=== PATIENT | male | born 1945 | race Caucasian/White ===

== ENCOUNTER 2017-12-28 14:29 | Emergency (ER) | payer MEDICARE ==
[~2017-12-28] VITALS: Ht 162.6 cm; Wt 91.2 kg
[~2017-12-28 14:29] MED LIST: ACET325 PO; ALUMAG30SU PO; ASPI81EC; ATEN50 PO; BLOOD PRESSURE MED; Biaxin500 MG PO; CLAR500 PO; Cipro500 MG PO; Cyclobenzaprine5 MG PO; FAMO20 PO; FISH1000; Flagyl500 MG PO; GLIP5 PO; HYDACE5; LISI5; LOVA40; Levaquin500 MG PO; Lisinopril2.5 MG; MECL25 PO; METO50 PO; METO50ER PO; METR500 PO; Norco 5-325 Ta1 EACH PO; OMEP20ER PO; OXYACE5T PO; OXYC5; OXYC5 PO; PANT40 PO; PRAV20 PO; Percocet 5-3251 EACH PO; Pravachol40 MG PO; Prednisone20 MG PO; Roxicodone5 MG PO; TRIHYD253B; TRIHYD5075 PO; Zofran Odt4 MG SL; Zofran4 MG PO; Zofran8 MG PO
[2017-12-28 15:45] LABS: BASOPHILS ABSOLUTE AUTO 0.05 K/mm3 (0.00-0.23); BASOPHILS PERCENT AUTO 1 % (0-2); EOSINOPHILS ABSOLUTE AUTO 0.15 K/mm3 (0.00-0.68); EOSINOPHILS PERCENT AUTO 2 % (0-6); Hematocrit 46.7 % (37.0-53.0); Hemoglobin 15.9 g/dL (13.5-17.5); IMMATURE GRAN ABSOLUTE AUTO 0.04 K/mm3 (0.00-0.10); IMMATURE GRAN PERCENT AUTO 0 % (0-1); LYMPHOCYTES ABSOLUTE AUTO 1.61 K/mm3 (0.84-5.20); LYMPHOCYTES PERCENT AUTO 17 % (21-46); MONOCYTES ABSOLUTE AUTO 0.86 K/mm3 (0.16-1.47); MONOCYTES PERCENT AUTO 9 % (4-13); Mean Corpuscular HGB 30.1 pg (26.0-34.0); Mean Corpuscular Volume 88 fL (80-100); Mean Platelet Volume 9.9 fL (9.1-12.4); NEUTROPHILS ABSOLUTE AUTO 6.58 K/mm3 (1.96-9.15); NEUTROPHILS PERCENT AUTO 71 % (41-73); Platelet Count 160 K/mm3 (150-400); RDW Coefficient Variation 13.2 % (11.7-14.2); RDW Standard Deviation 42.8 fL (35.1-46.3); Red Blood Cell Count 5.28 M/mm3 (4.30-5.90); White Blood Cell Count 9.29 K/mm3 (4.00-11.30)
[2017-12-28 15:55] LABS: Albumin, Blood 3.6 g/dL (3.4-5.0); Bilirubin, Total 0.3 mg/dL (0.1-1.0); Bun/Creatinine Ratio 10.8 (12.0-20.0); Calcium, Blood 8.8 mg/dL (8.5-10.1); Creatinine, Blood 1.48 mg/dL (0.60-1.20); Globulin, Blood 3.7 g/dL (2.2-4.0); Total Protein, Blood 7.3 g/dL (6.4-8.2)
[2017-12-28 18:01] LABS: Source, Urine Clean Catch
[2017-12-28 18:13] LABS: Bilirubin, Urine Neg (Neg); Blood, Urine Neg (Neg); Glucose Qualitative, Urine Neg (Neg); Ketones, Urine Neg (Neg); Leukocyte Esterase, Urine Neg (Neg); Nitrite, Urine Neg (Neg); Protein, Urine 2+ (Neg); Specific Gravity, Urine 1.015 (1.003-1.022); Urobilinogen, Urine NORM (Normal)
[2017-12-28 18:23] LABS: Appearance, Urine Clear (Clear); Color, Urine Yellow (P-Yellow)
[2017-12-28 18:24] LABS: Bacteria Not Seen /hpf; Red Blood Cells, Urine Not Seen /hpf (0-2); Squamous Epithelial Cells Not Seen /hpf (Few); White Blood Cells, Urine 0-2 /hpf (0-5)
== END 2017-12-28 19:21 | disposition home or self-care (01) ==
LOC: ER 14:29
PROVIDERS: Emergency Medicine
DX: R42 Dizziness and giddiness (principal); R07.9 Chest pain, unspecified; R51 Headache; M25.512 Pain in left shoulder; I10 Essential (primary) hypertension; E11.9 Type 2 diabetes mellitus without complications; Z91.010 Allergy to peanuts; Z88.0 Allergy status to penicillin; Z88.8 Allergy status to other drugs, medicaments and biological substances; Z88.1 Allergy status to other antibiotic agents; Z79.82 Long term (current) use of aspirin; Z79.84 Long term (current) use of oral hypoglycemic drugs; Z79.899 Other long term (current) drug therapy
CPT/HCPCS: 70450; 71046; 73502; 80053; 81001; 84484; 85025; 93005; 93010; 96361; 96374; 99284; G0480; J2765; J7030

== ENCOUNTER 2017-12-30 07:40 | Emergency (ER) | payer MEDICARE ==
[~2017-12-30] VITALS: Ht 160 cm; Wt 90.7 kg
[2017-12-30 08:20] LABS: Source, Urine Clean Catch
[2017-12-30 08:32] LABS: BASOPHILS ABSOLUTE AUTO 0.05 K/mm3 (0.00-0.23); BASOPHILS PERCENT AUTO 1 % (0-2); EOSINOPHILS ABSOLUTE AUTO 0.16 K/mm3 (0.00-0.68); EOSINOPHILS PERCENT AUTO 3 % (0-6); Hematocrit 43.7 % (37.0-53.0); Hemoglobin 14.9 g/dL (13.5-17.5); IMMATURE GRAN ABSOLUTE AUTO 0.01 K/mm3 (0.00-0.10); IMMATURE GRAN PERCENT AUTO 0 % (0-1); LYMPHOCYTES ABSOLUTE AUTO 1.07 K/mm3 (0.84-5.20); LYMPHOCYTES PERCENT AUTO 19 % (21-46); MONOCYTES ABSOLUTE AUTO 0.55 K/mm3 (0.16-1.47); MONOCYTES PERCENT AUTO 10 % (4-13); Mean Corpuscular HGB 30.5 pg (26.0-34.0); Mean Corpuscular HGB Conc 34.1 g/dL (31.5-36.5); Mean Corpuscular Volume 89 fL (80-100); NEUTROPHILS ABSOLUTE AUTO 3.89 K/mm3 (1.96-9.15); NEUTROPHILS PERCENT AUTO 68 % (41-73); Platelet Count 147 K/mm3 (150-400); RDW Coefficient Variation 13.2 % (11.7-14.2); RDW Standard Deviation 43.1 fL (35.1-46.3); Red Blood Cell Count 4.89 M/mm3 (4.30-5.90); White Blood Cell Count 5.73 K/mm3 (4.00-11.30)
[2017-12-30 08:44] LABS: Bilirubin, Urine Neg (Neg); Blood, Urine 1+ (Neg); Glucose Qualitative, Urine Neg (Neg); Ketones, Urine Neg (Neg); Leukocyte Esterase, Urine Neg (Neg); Nitrite, Urine Neg (Neg); Protein, Urine 1+ (Neg); Urobilinogen, Urine NORM (Normal)
[2017-12-30 08:52] LABS: Albumin, Blood 3.1 g/dL (3.4-5.0); Albumin/Globulin Ratio 0.9 (0.8-1.8); Bilirubin, Total 0.4 mg/dL (0.1-1.0); Bun/Creatinine Ratio 13.3 (12.0-20.0); Calcium, Blood 8.4 mg/dL (8.5-10.1); Creatinine, Blood 1.95 mg/dL (0.60-1.20); Globulin, Blood 3.5 g/dL (2.2-4.0); Potassium, Blood 3.9 mmol/L (3.5-5.5); Total Protein, Blood 6.6 g/dL (6.4-8.2)
[2017-12-30 09:06] LABS: Appearance, Urine Clear (Clear); Color, Urine Yellow (P-Yellow)
[2017-12-30 09:11] LABS: Bacteria Rare /hpf; Red Blood Cells, Urine Rare /hpf (0-2); Squamous Epithelial Cells Not Seen /hpf (Few); White Blood Cells, Urine Not Seen /hpf (0-5)
== END 2017-12-30 11:06 | disposition home or self-care (01) ==
LOC: ER 07:40
PROVIDERS: Emergency Medicine
DX: R10.9 Unspecified abdominal pain (principal); I10 Essential (primary) hypertension; E11.9 Type 2 diabetes mellitus without complications; F17.210 Nicotine dependence, cigarettes, uncomplicated
CPT/HCPCS: 36415; 74176; 76770; 80053; 81001; 83690; 85025; 99284

== ENCOUNTER 2018-09-04 04:51 | Emergency (ER) | payer MEDICARE ==
[~2018-09-04] VITALS: Ht 160 cm; Wt 94.3 kg
[2018-09-04] MEDS ORDERED: ZALE10 PO (05:50)
== END 2018-09-04 06:00 | disposition home or self-care (01) ==
LOC: ER 04:51
DX: G47.00 Insomnia, unspecified (principal); Z88.8 Allergy status to other drugs, medicaments and biological substances; Z91.010 Allergy to peanuts; Z88.0 Allergy status to penicillin; Z88.1 Allergy status to other antibiotic agents; I10 Essential (primary) hypertension; E11.9 Type 2 diabetes mellitus without complications; F17.210 Nicotine dependence, cigarettes, uncomplicated
CPT/HCPCS: 99283

== ENCOUNTER 2019-04-04 15:34 | Emergency (ER) | payer MEDICARE ==
[~2019-04-04] VITALS: Ht 157.5 cm; Wt 84.8 kg
[~2019-04-04 15:34] MED LIST changes: +ZALE10 PO
[2019-04-04] MEDS ORDERED: CEPH500 PO (18:31)
[2019-04-04] MEDS ORDERED: Bactrim Ds Tab1 EACH PO (18:31)
== END 2019-04-04 18:48 | disposition home or self-care (01) ==
LOC: ER 15:34
DX: L03.113 Cellulitis of right upper limb (principal); I10 Essential (primary) hypertension; E11.9 Type 2 diabetes mellitus without complications; F17.210 Nicotine dependence, cigarettes, uncomplicated; M79.601 Pain in right arm; Z88.1 Allergy status to other antibiotic agents; Z88.0 Allergy status to penicillin; Z91.010 Allergy to peanuts; Z88.8 Allergy status to other drugs, medicaments and biological substances; Z79.899 Other long term (current) drug therapy
CPT/HCPCS: 73080; 93971; 99284-25

== ENCOUNTER 2019-04-09 10:29 | Emergency (ER) | payer MEDICARE ==
[~2019-04-09] VITALS: Ht 160 cm; Wt 94.3 kg
[~2019-04-09 10:29] MED LIST changes: +Bactrim Ds Tab1 EACH PO; +CEPH500 PO
[2019-04-09] MEDS ORDERED: DOXE25 PO (11:37)
[2019-04-09] MEDS ORDERED: METPRE4DP PO (11:37)
[2019-04-09] MEDS ORDERED: Triamcinolone A15 G3 TOP (11:37)
== END 2019-04-09 11:52 | disposition home or self-care (01) ==
LOC: ER 10:29
DX: L25.9 Unspecified contact dermatitis, unspecified cause (principal); I10 Essential (primary) hypertension; E11.9 Type 2 diabetes mellitus without complications; F17.210 Nicotine dependence, cigarettes, uncomplicated; Z88.0 Allergy status to penicillin; Z88.1 Allergy status to other antibiotic agents; Z91.018 Allergy to other foods; Z79.899 Other long term (current) drug therapy
CPT/HCPCS: 99282

== ENCOUNTER 2019-04-22 20:20 | Emergency (ER) | payer MEDICARE ==
[~2019-04-22] VITALS: Ht 160 cm; Wt 94.3 kg
[~2019-04-22 20:20] MED LIST changes: +DOXE25 PO; +METPRE4DP PO; +Triamcinolone A15 G3 TOP
[2019-04-22] MEDS ORDERED: HYDHCL25 PO (21:57)
[2019-04-22] MEDS ORDERED: CEPH500 PO (21:57)
[2019-04-22] MEDS ORDERED: Prednisone20 MG PO (21:57)
== END 2019-04-22 22:05 | disposition home or self-care (01) ==
LOC: ER 20:20
DX: L03.113 Cellulitis of right upper limb (principal); Z88.8 Allergy status to other drugs, medicaments and biological substances; Z91.010 Allergy to peanuts; Z88.0 Allergy status to penicillin; Z88.1 Allergy status to other antibiotic agents; Z79.899 Other long term (current) drug therapy; I10 Essential (primary) hypertension; E11.9 Type 2 diabetes mellitus without complications; F17.210 Nicotine dependence, cigarettes, uncomplicated
CPT/HCPCS: 99283; J7512

== ENCOUNTER 2019-05-07 17:55 | Emergency (ER) | payer MEDICARE ==
[~2019-05-07] VITALS: Ht 160 cm; Wt 92.1 kg
[~2019-05-07 17:55] MED LIST changes: +HYDHCL25 PO
[2019-05-07] MEDS ORDERED: PRED20 PO (19:02)
[2019-05-07] MEDS ORDERED: MOME.1TO TOP (19:04)
== END 2019-05-07 19:21 | disposition home or self-care (01) ==
LOC: ER 17:55
DX: R21 Rash and other nonspecific skin eruption (principal); Z88.8 Allergy status to other drugs, medicaments and biological substances; Z91.010 Allergy to peanuts; Z88.0 Allergy status to penicillin; Z88.1 Allergy status to other antibiotic agents; Z79.52 Long term (current) use of systemic steroids; I10 Essential (primary) hypertension; E11.9 Type 2 diabetes mellitus without complications; F17.210 Nicotine dependence, cigarettes, uncomplicated
CPT/HCPCS: 99283; J7512

== ENCOUNTER 2019-05-09 03:58 | Emergency (ER) | payer MEDICARE ==
[~2019-05-09] VITALS: Ht 160 cm; Wt 92.1 kg
[~2019-05-09 03:58] MED LIST changes: +MOME.1TO TOP; +PRED20 PO
== END 2019-05-09 04:48 | disposition home or self-care (01) ==
LOC: ER 03:58
DX: L50.0 Allergic urticaria (principal); E11.9 Type 2 diabetes mellitus without complications; I10 Essential (primary) hypertension; F17.210 Nicotine dependence, cigarettes, uncomplicated; Z88.1 Allergy status to other antibiotic agents; Z91.018 Allergy to other foods; Z88.0 Allergy status to penicillin; Z88.8 Allergy status to other drugs, medicaments and biological substances; Z79.899 Other long term (current) drug therapy; Z79.52 Long term (current) use of systemic steroids
CPT/HCPCS: 96372; 99283-25; J3301

== ENCOUNTER 2019-05-13 15:48 | Emergency (ER) | payer MEDICARE ==
[~2019-05-13] VITALS: Ht 160 cm; Wt 92.1 kg
== END 2019-05-13 17:45 | disposition home or self-care (01) ==
LOC: ER 15:48
DX: L50.9 Urticaria, unspecified (principal); L30.9 Dermatitis, unspecified; R06.2 Wheezing; I10 Essential (primary) hypertension; E11.9 Type 2 diabetes mellitus without complications; F17.210 Nicotine dependence, cigarettes, uncomplicated; Z88.0 Allergy status to penicillin; Z88.8 Allergy status to other drugs, medicaments and biological substances; Z91.010 Allergy to peanuts; Z88.1 Allergy status to other antibiotic agents; Z79.899 Other long term (current) drug therapy; Z79.52 Long term (current) use of systemic steroids
CPT/HCPCS: 99282

== ENCOUNTER 2019-07-17 18:25 | Emergency (ER) | payer MEDICARE ==
[~2019-07-17] VITALS: Ht 160 cm; Wt 94.8 kg
[~2019-07-17 18:25] MED LIST changes: +ASPI81CH PO; +GLIP10ER PO; +Prinivil10 MG PO; +Zocor20 MG PO
[2019-07-17 18:55] LABS: BASOPHILS ABSOLUTE AUTO 0.04 K/mm3 (0.00-0.23); BASOPHILS PERCENT AUTO 1 % (0-2); EOSINOPHILS ABSOLUTE AUTO 0.03 K/mm3 (0.00-0.68); EOSINOPHILS PERCENT AUTO 0 % (0-6); Hematocrit 50.2 % (37.0-53.0); Hemoglobin 16.9 g/dL (13.5-17.5); IMMATURE GRAN ABSOLUTE AUTO 0.02 K/mm3 (0.00-0.10); IMMATURE GRAN PERCENT AUTO 0 % (0-1); LYMPHOCYTES ABSOLUTE AUTO 1.44 K/mm3 (0.84-5.20); LYMPHOCYTES PERCENT AUTO 19 % (21-46); MONOCYTES ABSOLUTE AUTO 0.74 K/mm3 (0.16-1.47); MONOCYTES PERCENT AUTO 10 % (4-13); Mean Corpuscular HGB 29.5 pg (26.0-34.0); Mean Corpuscular HGB Conc 33.7 g/dL (31.5-36.5); Mean Corpuscular Volume 88 fL (80-100); Mean Platelet Volume 9.5 fL (9.1-12.4); NEUTROPHILS ABSOLUTE AUTO 5.48 K/mm3 (1.96-9.15); NEUTROPHILS PERCENT AUTO 71 % (41-73); Platelet Count 196 K/mm3 (150-400); RDW Coefficient Variation 13.1 % (11.7-14.2); RDW Standard Deviation 41.9 fL (35.1-46.3); Red Blood Cell Count 5.73 M/mm3 (4.30-5.90); White Blood Cell Count 7.75 K/mm3 (4.00-11.30)
[2019-07-17 19:10] LABS: International Normalized Ratio 1.03; Prothrombin Time Results 10.9 Sec (9.7-11.5)
[2019-07-17] MEDS ORDERED: METOPROLOL SUCC25 MG PO (19:20)
[2019-07-17] MEDS ORDERED: ZESTORETIC 20-121 EA PO (19:20)
[2019-07-17 19:25] LABS: Albumin, Blood 3.3 g/dL (3.4-5.0); Albumin/Globulin Ratio 0.9 (0.8-1.8); Bilirubin, Total 0.5 mg/dL (0.1-1.0); Bun/Creatinine Ratio 15.2 (12.0-20.0); Calcium, Blood 8.9 mg/dL (8.5-10.1); Creatinine, Blood 1.78 mg/dL (0.60-1.20); Globulin, Blood 3.8 g/dL (2.2-4.0); Potassium, Blood 3.4 mmol/L (3.5-5.5); Total Protein, Blood 7.1 g/dL (6.4-8.2)
[2019-07-18] MEDS ORDERED: Polytrim Eye Dr10 ML LEFTEYE (16:05)
== END 2019-07-17 22:31 | disposition home or self-care (01) ==
LOC: ER 18:25
PROVIDERS: Physician Assistant
DX: G45.9 Transient cerebral ischemic attack, unspecified (principal); I10 Essential (primary) hypertension; E11.9 Type 2 diabetes mellitus without complications; Z88.0 Allergy status to penicillin; Z88.1 Allergy status to other antibiotic agents; Z88.8 Allergy status to other drugs, medicaments and biological substances; Z91.010 Allergy to peanuts; Z79.82 Long term (current) use of aspirin; Z79.899 Other long term (current) drug therapy; F17.210 Nicotine dependence, cigarettes, uncomplicated
CPT/HCPCS: 36415; 70450; 80053; 85025; 85610; 93005; 93010; 96374; 99284-25; J3010

== ENCOUNTER 2019-07-18 11:08 | Emergency (ER) | payer MEDICARE ==
[~2019-07-18] VITALS: Ht 160 cm; Wt 94.8 kg
[~2019-07-18 11:08] MED LIST changes: +METOPROLOL SUCC25 MG PO; +ZESTORETIC 20-121 EA PO
[2019-07-18 13:25] LABS: BASOPHILS ABSOLUTE AUTO 0.02 K/mm3 (0.00-0.23); BASOPHILS PERCENT AUTO 0 % (0-2); EOSINOPHILS ABSOLUTE AUTO 0.05 K/mm3 (0.00-0.68); EOSINOPHILS PERCENT AUTO 1 % (0-6); Hematocrit 47.9 % (37.0-53.0); Hemoglobin 16.3 g/dL (13.5-17.5); IMMATURE GRAN ABSOLUTE AUTO 0.02 K/mm3 (0.00-0.10); IMMATURE GRAN PERCENT AUTO 0 % (0-1); LYMPHOCYTES ABSOLUTE AUTO 1.37 K/mm3 (0.84-5.20); LYMPHOCYTES PERCENT AUTO 19 % (21-46); MONOCYTES PERCENT AUTO 11 % (4-13); Mean Corpuscular HGB 30.1 pg (26.0-34.0); Mean Corpuscular Volume 88 fL (80-100); Mean Platelet Volume 9.2 fL (9.1-12.4); NEUTROPHILS ABSOLUTE AUTO 5.05 K/mm3 (1.96-9.15); NEUTROPHILS PERCENT AUTO 69 % (41-73); Platelet Count 194 K/mm3 (150-400); RDW Coefficient Variation 13.2 % (11.7-14.2); RDW Standard Deviation 43.3 fL (35.1-46.3); Red Blood Cell Count 5.42 M/mm3 (4.30-5.90); White Blood Cell Count 7.31 K/mm3 (4.00-11.30)
[2019-07-18 13:42] LABS: Anion Gap 7 mmol/L (6-16); Blood Urea Nitrogen 34 mg/dL (8-24); Bun/Creatinine Ratio 18.5 (12.0-20.0); C-REACTIVE PROTEIN, EXT RANGE <0.290 mg/dL (0.000-0.300); CO2, Blood 27 mmol/L (21-32); Calcium, Blood 8.9 mg/dL (8.5-10.1); Chloride, Blood 108 mmol/L (98-108); Creatinine, Blood 1.84 mg/dL (0.60-1.20); Glomerular Filtration Rate 39 (60-); Glucose, Blood 91 mg/dL (70-99); Potassium, Blood 3.6 mmol/L (3.5-5.5); Sodium, Blood 142 mmol/L (136-145)
[2019-07-18] MEDS ORDERED: Polytrim Eye Dr10 ML LEFTEYE (16:05)
== END 2019-07-18 16:19 | disposition home or self-care (01) ==
LOC: ER 11:08
PROVIDERS: Emergency Medicine
DX: H16.002 Unspecified corneal ulcer, left eye (principal); H53.132 Sudden visual loss, left eye; R51 Headache; I10 Essential (primary) hypertension; E11.9 Type 2 diabetes mellitus without complications; Z88.0 Allergy status to penicillin; Z88.1 Allergy status to other antibiotic agents; Z88.8 Allergy status to other drugs, medicaments and biological substances; Z79.899 Other long term (current) drug therapy; Z79.82 Long term (current) use of aspirin; F17.200 Nicotine dependence, unspecified, uncomplicated
CPT/HCPCS: 36415; 80048; 85025; 85651; 86140; 93880; 99284-25

== ENCOUNTER → 2020-07-10 | Outpatient (CLI) | payer OTHER ==
[~2020-07-10] MED LIST changes: +Polytrim Eye Dr10 ML LEFTEYE; +SULTRIDS PO
[2020-07-10 16:59] LABS: Alanine Aminotransfer (ALT/SGP 23 U/L (12-78); Albumin, Blood 3.4 g/dL (3.4-5.0); Albumin/Globulin Ratio 0.9 (0.8-1.8); Alk Phos 90 U/L (50-136); Anion Gap 6 mmol/L (6-16); Aspartate Aminotrans (AST/SGOT 15 U/L (12-37); Bilirubin, Total 0.3 mg/dL (0.1-1.0); Blood Urea Nitrogen 19 mg/dL (8-24); Bun/Creatinine Ratio 13.1 (12.0-20.0); CHOL/HDL RATIO 5.6; CO2, Blood 24 mmol/L (21-32); Calcium, Blood 8.8 mg/dL (8.5-10.1); Chloride, Blood 109 mmol/L (98-108); Cholesterol 201 mg/dL (50-200); Creatinine, Blood 1.45 mg/dL (0.60-1.20); Globulin, Blood 3.8 g/dL (2.2-4.0); Glomerular Filtration Rate 51 (60-); Glucose, Blood 103 mg/dL (70-99); HDL Cholesterol 36 mg/dL (>39); LDL/HDL RATIO 2.8; Low Density Lipoprotein Chol 102 mg/dL (0-110); PSA, %Free 26.5 %; PSA, Free 0.403 ng/mL; Potassium, Blood 3.4 mmol/L (3.5-5.5); Sodium, Blood 139 mmol/L (136-145); Total Protein, Blood 7.2 g/dL (6.4-8.2); Triglycerides 317 mg/dL (30-160); Very Low Density Lipoprot Chol 63 mg/dL (6-32)
[2020-07-10 20:57] LABS: Microalb/Creat Ratio UR, Rand 1857.14 mg/g (0.000-30.000)
== END | disposition home or self-care (01) ==
LOC: LAB SHORT 15:29 → LAB 15:29
PROVIDERS: Family Medicine
DX: E11.9 Type 2 diabetes mellitus without complications (principal); I10 Essential (primary) hypertension; R33.9 Retention of urine, unspecified
CPT/HCPCS: 80053; 80061; 82043; 82570; 83036; 84153; 84154

== ENCOUNTER 2020-10-08 02:14 | Emergency (ER) | payer OTHER ==
[~2020-10-08] VITALS: Ht 160 cm; Wt 94.3 kg
[~2020-10-08 02:14] MED LIST changes: -SULTRIDS PO
[2020-10-08] MEDS ORDERED: SULTRIDS PO (03:04)
== END 2020-10-08 05:05 | disposition home or self-care (01) ==
LOC: ER 02:14
DX: L02.11 Cutaneous abscess of neck (principal); I10 Essential (primary) hypertension; E11.9 Type 2 diabetes mellitus without complications; Z79.84 Long term (current) use of oral hypoglycemic drugs; Z79.899 Other long term (current) drug therapy; Z79.82 Long term (current) use of aspirin; Z88.0 Allergy status to penicillin; Z88.1 Allergy status to other antibiotic agents; Z91.010 Allergy to peanuts; Z87.891 Personal history of nicotine dependence
CPT/HCPCS: 96372; 99283-25; A9270; J1885

== ENCOUNTER 2020-10-09 04:26 | Emergency (ER) | payer OTHER ==
[~2020-10-09 04:26] MED LIST changes: +SULTRIDS PO
== END 2020-10-09 05:35 | disposition home or self-care (01) ==
LOC: ER 04:26
DX: L03.221 Cellulitis of neck (principal); E11.9 Type 2 diabetes mellitus without complications; F17.210 Nicotine dependence, cigarettes, uncomplicated; Z79.899 Other long term (current) drug therapy; Z79.84 Long term (current) use of oral hypoglycemic drugs; Z79.82 Long term (current) use of aspirin
CPT/HCPCS: 99282; A9270

== ENCOUNTER 2021-04-30 12:40 | Inpatient (IN) | payer OTHER ==
[~2021-04-30] VITALS: Ht 160 cm; Wt 98.0 kg
[~2021-04-30 12:40] MED LIST changes: -ASPI81CH PO; +Aspir 8181 MG PO
[2021-04-30 13:23] LABS: BASOPHILS ABSOLUTE AUTO 0.03 K/mm3 (0.00-0.23); BASOPHILS PERCENT AUTO 0 % (0-2); EOSINOPHILS ABSOLUTE AUTO 0.03 K/mm3 (0.00-0.68); EOSINOPHILS PERCENT AUTO 0 % (0-6); Hematocrit 42.4 % (37.0-53.0); Hemoglobin 14.4 g/dL (13.5-17.5); IMMATURE GRAN ABSOLUTE AUTO 0.15 K/mm3 (0.00-0.10); IMMATURE GRAN PERCENT AUTO 1 % (0-1); LYMPHOCYTES ABSOLUTE AUTO 2.83 K/mm3 (0.84-5.20); LYMPHOCYTES PERCENT AUTO 27 % (21-46); MONOCYTES ABSOLUTE AUTO 0.66 K/mm3 (0.16-1.47); MONOCYTES PERCENT AUTO 6 % (4-13); Mean Corpuscular HGB 30.3 pg (26.0-34.0); Mean Corpuscular Volume 89 fL (80-100); Mean Platelet Volume 9.6 fL (9.1-12.4); NEUTROPHILS ABSOLUTE AUTO 6.96 K/mm3 (1.96-9.15); NEUTROPHILS PERCENT AUTO 65 % (41-73); Platelet Count 226 K/mm3 (150-400); RDW Coefficient Variation 13.6 % (11.7-14.2); RDW Standard Deviation 44.1 fL (35.1-46.3); Red Blood Cell Count 4.76 M/mm3 (4.30-5.90); White Blood Cell Count 10.66 K/mm3 (4.00-11.30)
[2021-04-30 13:41] LABS: Alanine Aminotransfer (ALT/SGP 58 U/L (12-78); Albumin, Blood 2.7 g/dL (3.4-5.0); Albumin/Globulin Ratio 0.7 (0.8-1.8); Alk Phos 88 U/L (50-136); Anion Gap 7 mmol/L (6-16); Aspartate Aminotrans (AST/SGOT 66 U/L (12-37); Bilirubin, Total 0.3 mg/dL (0.1-1.0); Blood Urea Nitrogen 22 mg/dL (8-24); Bun/Creatinine Ratio 12.2 (12.0-20.0); CO2, Blood 28 mmol/L (21-32); Calcium, Blood 8.6 mg/dL (8.5-10.1); Chloride, Blood 109 mmol/L (98-108); Creatinine, Blood 1.81 mg/dL (0.60-1.20); Ethanol (Alcohol), Blood, Med <3 mg/dL; Globulin, Blood 3.9 g/dL (2.2-4.0); Glomerular Filtration Rate 37 (60-); Glucose, Blood 170 mg/dL (70-99); Potassium, Blood 3.9 mmol/L (3.5-5.5); Sodium, Blood 144 mmol/L (136-145); Total Protein, Blood 6.6 g/dL (6.4-8.2)
[2021-04-30 13:43] LABS: International Normalized Ratio 1.02; Prothrombin Time Results 10.7 Sec (9.7-11.5)
[2021-04-30] MEDS ORDERED: GLIP10 PO (16:33)
[2021-04-30] MEDS ORDERED: Simvastatin40 MG PO (16:33)
[2021-04-30] MEDS ORDERED: LISINOPRIL-HCT1 EACH PO (16:34)
[2021-04-30 17:47] LABS: Hematocrit 39.3 % (37.0-53.0); Hemoglobin 13.1 g/dL (13.5-17.5)
[2021-04-30 18:14] LABS: SARS-Cov-2 (COVID-19) PCR, MMC NEGATIVE (NEGATIVE)
[2021-05-01 04:15] LABS: BASOPHILS ABSOLUTE AUTO 0.03 K/mm3 (0.00-0.23); BASOPHILS PERCENT AUTO 0 % (0-2); EOSINOPHILS ABSOLUTE AUTO 0.01 K/mm3 (0.00-0.68); EOSINOPHILS PERCENT AUTO 0 % (0-6); Hematocrit 35.3 % (37.0-53.0); Hemoglobin 11.4 g/dL (13.5-17.5); IMMATURE GRAN ABSOLUTE AUTO 0.05 K/mm3 (0.00-0.10); IMMATURE GRAN PERCENT AUTO 1 % (0-1); LYMPHOCYTES ABSOLUTE AUTO 0.93 K/mm3 (0.84-5.20); LYMPHOCYTES PERCENT AUTO 11 % (21-46); MONOCYTES ABSOLUTE AUTO 0.77 K/mm3 (0.16-1.47); MONOCYTES PERCENT AUTO 9 % (4-13); Mean Corpuscular HGB 30.1 pg (26.0-34.0); Mean Corpuscular HGB Conc 32.3 g/dL (31.5-36.5); Mean Corpuscular Volume 93 fL (80-100); Mean Platelet Volume 9.8 fL (9.1-12.4); NEUTROPHILS ABSOLUTE AUTO 6.41 K/mm3 (1.96-9.15); NEUTROPHILS PERCENT AUTO 78 % (41-73); Platelet Count 158 K/mm3 (150-400); RDW Coefficient Variation 14.2 % (11.7-14.2); RDW Standard Deviation 47.6 fL (35.1-46.3); Red Blood Cell Count 3.79 M/mm3 (4.30-5.90)
--- NOTE | 2021-05-01 04:37 | NUR ---
PATIENT C/O OF PAIN OF THE CHEST AND RIGHT SHOULDER PAIN. PATIENT IS ON A FENTANYL CAR MANAGER PUMP AND IS STATING THAT IT IS NOT EFFECTIVE. THE NURSE EDUCATED THE PATIENT ABOUT THE PUMP PUSHING THE BUTTON. VITALS ARE STABLE. WILL CONTINUE TO MONITOR PATIENT'S PAIN.
[2021-05-01 04:45] LABS: Bun/Creatinine Ratio 10.2 (12.0-20.0); Calcium, Blood 7.6 mg/dL (8.5-10.1); Creatinine, Blood 3.03 mg/dL (0.60-1.20); Potassium, Blood 4.7 mmol/L (3.5-5.5)
[2021-05-01 11:01] LABS: Source, Urine Catheter
[2021-05-01 11:10] LABS: Appearance, Urine Hazy (Clear); Bilirubin, Urine Neg (Neg); Blood, Urine 5+ (Neg); Color, Urine Brown (P-Yellow); Glucose Qualitative, Urine Neg (Neg); Ketones, Urine Neg (Neg); Leukocyte Esterase, Urine 2+ (Neg); Nitrite, Urine Neg (Neg); Protein, Urine 3+ (Neg); Urobilinogen, Urine 1+ (Normal)
[2021-05-01 11:22] LABS: U Amphetamine Screen Not Detected; U Barbituate Screen Not Detected; U Benzodiazapine Screen Not Detected; U Buprenorphine Screen Not Detected; U Cannabinoids Screen Not Detected; U Cocaine Screen Not Detected; U Methadone Screen Not Detected; U Methamphetamine Screen Not Detected; U Opiates Screen DETECTED; U Oxycodone Screen Not Detected; U Phencyclidine Screen Not Detected; U Propoxyphene Screen Not Detected
[2021-05-01 11:47] LABS: Bacteria Rare /hpf; Red Blood Cells, Urine TNTC /hpf (0-2); Squamous Epithelial Cells Few /hpf (Few)
[2021-05-01 11:48] LABS: Amorphous Mod (0-Heavy)
[2021-05-01 11:49] LABS: Phosphorus, Blood 5.5 mg/dL (2.5-4.9)
--- NOTE | 2021-05-01 15:11 | NUR ---
ASSUMED CARE OF PT AT APROX 1511. PT APPEARS TO BE RESTING COMFORTABLY AT THIS TIME. CHEST TUBE TO WATER SEAL AND SX. PUBLIC HEALTH ANALYST INFUSING TO R HAND, PT DENIES PAIN AT THIS TIME.
[2021-05-01 21:45] LABS: Albumin, Blood 2.2 g/dL (3.4-5.0); Anion Gap 9 mmol/L (6-16); Blood Urea Nitrogen 37 mg/dL (8-24); Bun/Creatinine Ratio 12.9 (12.0-20.0); CO2, Blood 25 mmol/L (21-32); CPK Creatine Kinase 1557 U/L (39-308); Calcium, Blood 7.8 mg/dL (8.5-10.1); Chloride, Blood 107 mmol/L (98-108); Creatinine, Blood 2.87 mg/dL (0.60-1.20); Glomerular Filtration Rate 22 (60-); Glucose, Blood 134 mg/dL (70-99); Phosphorus, Blood 4.4 mg/dL (2.5-4.9); Potassium, Blood 4.3 mmol/L (3.5-5.5); Sodium, Blood 141 mmol/L (136-145)
[2021-05-02 04:24] LABS: BASOPHILS ABSOLUTE AUTO 0.02 K/mm3 (0.00-0.23); BASOPHILS PERCENT AUTO 0 % (0-2); EOSINOPHILS ABSOLUTE AUTO 0.01 K/mm3 (0.00-0.68); EOSINOPHILS PERCENT AUTO 0 % (0-6); Hematocrit 30.5 % (37.0-53.0); Hemoglobin 10.1 g/dL (13.5-17.5); IMMATURE GRAN ABSOLUTE AUTO 0.05 K/mm3 (0.00-0.10); IMMATURE GRAN PERCENT AUTO 1 % (0-1); LYMPHOCYTES ABSOLUTE AUTO 0.67 K/mm3 (0.84-5.20); LYMPHOCYTES PERCENT AUTO 10 % (21-46); MONOCYTES ABSOLUTE AUTO 0.72 K/mm3 (0.16-1.47); MONOCYTES PERCENT AUTO 10 % (4-13); Mean Corpuscular HGB 30.4 pg (26.0-34.0); Mean Corpuscular HGB Conc 33.1 g/dL (31.5-36.5); Mean Corpuscular Volume 92 fL (80-100); Mean Platelet Volume 9.7 fL (9.1-12.4); NEUTROPHILS ABSOLUTE AUTO 5.44 K/mm3 (1.96-9.15); NEUTROPHILS PERCENT AUTO 79 % (41-73); Platelet Count 124 K/mm3 (150-400); RDW Standard Deviation 46.9 fL (35.1-46.3); Red Blood Cell Count 3.32 M/mm3 (4.30-5.90); White Blood Cell Count 6.91 K/mm3 (4.00-11.30)
--- NOTE | 2021-05-02 05:10 | NUR ---
SHIFT SUMMARY PT HAS BEEN A&O X4 AND IN PLEASENT MOOD T/O SHIFT, THOUGH PT HAS BEEN COMPLAINING OF BEING IN PAIN T/O SHIFT. CREPE BOX TENDER MEDICATED, PT REPOSITIONED, PROVIDED W/ PILLOW FOR SPLINTING COUGHS AND PROVIDED W/ WARM BLANKET FOR COMFORT. PT TOLERATING CLEAR LIQUIDS WELL. MINIMUM DARK BUBBA COLORED URINE OUTPUT VIA URINAL. CALL LIGHT W/IN REACH AND UTILIZING APPROPRIATLY. CHEST TUBE IS WATER SEALED AND DRESSING IS C/D/I.
[2021-05-02 05:17] LABS: Albumin/Globulin Ratio 0.6 (0.8-1.8); Bilirubin, Total 0.7 mg/dL (0.1-1.0); Bun/Creatinine Ratio 14.2 (12.0-20.0); Calcium, Blood 7.9 mg/dL (8.5-10.1); Creatinine, Blood 2.67 mg/dL (0.60-1.20); Globulin, Blood 3.5 g/dL (2.2-4.0); Phosphorus, Blood 4.1 mg/dL (2.5-4.9); Potassium, Blood 4.3 mmol/L (3.5-5.5); Total Protein, Blood 5.5 g/dL (6.4-8.2)
--- NOTE | 2021-05-02 09:44 | NUR ---
INITIATED DILAUDID HUMAN RESOURCE ASSISTANT. PT'S PAIN 9/10 WITH RR AT 24.
--- NOTE | 2021-05-02 09:49 | NUR ---
helping pt off bed sellers with plant attendant or assistant operator. pt desatted to 70's while repositioning. dr. temple in room at this time. placed pt on 9L via non rebreather. sats recovered to >92% after approx 2 minutes. pt desats quickly to 70's while removing NRB while blowing nose.
--- NOTE | 2021-05-02 10:32 | NUR ---
PT TRANSFERRED TO ICU 8 WHERE HE IS TO RECEIVE AN EPIDURAL AT BEDSIDE. REPORT CALLED TO ONCOLOGY CONSULTANT. PT AND BELONGINGS TRANSFERRED TO ICU AT THIS TIME.
--- NOTE | 2021-05-02 10:58 | NUR ---
1030 TRANSFER FROM [facility] VIA BED. PATIENT AWAKE, A&O X4. MONITOR PLACED. SINUS TACH NOTED 100'S, BP STABLE, NRB MASK 13L WITH SATS 98% WITH LABOR BREATHING DUE TO RIB FX'S. RIGHT SIDE LUNG WITH CHEST TUBE TO SUCTION/PATENT WITH NO LEAK NOTED. LUNGS COURSE WITH DECREASE BASES. ABD ROUND WITH HYPO BT'S. RIGHT ARM IN SLING DUE TO S/P SHOULDER DISLOCATION. IV SITE R HAND WITH LR AT 50ML/HR AND DILAUDID OPERATOR MAINTAINER AT 0.3MG/HR FOR PAIN CONTROL. DR SRINIVASAN AND DR SMITH, ANESTHESIOLOGIST HERE AT BEDSIDE. DR SMITH HERE TO PLACE THORACIC EPIDUAL FOR PAIN CONTROL; STARTED PROCEDURE AT 1050. CONTINUE TO MONITOR AND TX PRN.
--- NOTE | 2021-05-02 11:59 | NUR ---
DR SMITH UNSUCCESSFUL OF GETTING THORACIC EPIDURAL. WILL GIVEN PATIENT A REST AND CONTINUE WITH DILAUDID POULTRY EVISCERATOR. WILL ATTEMPT AT A LATER TIME. DR WRIGHT HERE AT BEDSIDE TO SEE PATIENT.
--- NOTE | 2021-05-02 13:50 | NUR ---
DR CUNHA, ANESTHESIOLOGIST HERE TO PLACE THORACIC EPIDURAL. 14FR COUDE DAVALOS PLACED TO MONITOR ACCURATE I&O'S. ATTEMPTED ADDITIONAL PERIPHERAL IV PLACEMENT, UNSUCESSFUL X2.
[2021-05-02 16:18] LABS: Source, Urine Catheter
[2021-05-02 16:33] LABS: Appearance, Urine Clear (Clear); Bilirubin, Urine Neg (Neg); Blood, Urine 5+ (Neg); Color, Urine Yellow (P-Yellow); Glucose Qualitative, Urine Neg (Neg); Ketones, Urine Neg (Neg); Leukocyte Esterase, Urine 1+ (Neg); Nitrite, Urine Neg (Neg); Protein, Urine 3+ (Neg); Urobilinogen, Urine NORM (Normal)
[2021-05-02 17:13] LABS: Bacteria Few /hpf; Red Blood Cells, Urine 50-100 /hpf (0-2); Squamous Epithelial Cells Few /hpf (Few)
[2021-05-02 17:14] LABS: Mucus Light (0-Heavy)
--- NOTE | 2021-05-02 18:10 | NUR ---
1404 DR. CUNHA STARTED PROCEDURE. SEE ANESTHESIOLOGIST RECORD. DILAUDID CANDY ROLLING MACHINE OPERATOR STOPPED AND LR INFUSING. 1425 EPIDURAL PLACED, BOLUS DOSE GIVEN BY DR, AND BLOOD PRESSURE DROPPED. STOPPED EPIDURAL INFUSION AND DR TX'D BP. 1506 DR CUNHA STABILIZED BP, ASSUMED CARE. PT RESTING/SLEEPING COMFORTABLE. RESTARTED EPIDURAL AT 5ML/HR. CONTINUE TO MONITOR AND TX PRN.
--- NOTE | 2021-05-02 18:17 | NUR ---
SHIFT SUMMARY PATIENT RESTING COMFORTABLE, DENIES PAIN. FENTANYL/BUPIVACAINE EPIDURAL INFUSING AT 5ML/HR TOLERATING WELL. VSS. LUNGS REAMINS COARSE WITH 10L OXYMIZER IN PLACE WITH SATS >90%. ABLE TO COUGH AND DEEP BREATH. ATTEMPTED TO EAT DINNER; APPLESAUCE AND DRINK SIPS OF WATER. INCREASE RESP. RATE 40-50'S AND DECREASE SATS 88%. EDUCATED PATIENT TO HOLD ADDITIONAL FOOD FOR NOW DUE TO RESPIRATORY STATUS, AGREED. DAVALOS PATENT. NEW IV ACCESS POWER GLIDE DAVON WITH NS AT 100ML/HR. BLOOD SUGAR STABLE. WILL START DUCOLAX SUPP. PER ORDERS. CONTINUE TO MONITOR AND TX PRN. SPOKE WITH FAMILY AND UPDATED ON STATUS. WILL REPORT OFF TO NOC SHIFT.
--- NOTE | 2021-05-02 19:58 | NUR ---
ASSUMED CARE OF PT AT 1915. REPORT RECEIVED. PT PRESENTS IN BED. PRESENTLY HAS JUST COMPLETED USING BEDPAN. HAS SMALL BM. PT USES EPIDURAL FOR PAIN CONTROL. WITH TURN, PT STATES HIS PAIN IS 5/10. WILL CONTINUE TO MONITOR, AND ADJUST PAIN MANAGEMENT NEEDED. PT ALERT AND ORIENTED. PLEASANT AND COOPERATIVE WITH CARE AND ASSESSMENT. ENCOURAGED COUGH AND DEEP BREATHING. TEACHING OF BREATHING TECHNIQUES. PT REDEMONSTRATES BACK APPROPRIATELY. LUNGS WITH SCATTERED RHONCHI. OXIMIZER AT 10 L/M. WILL REVIEW CHART AND PLAN OF CARE FOR THIS PT.
--- NOTE | 2021-05-03 | NUR ---
PT HAS BEEN VERY RESTLESS THIS NIGHT. DOES STATE THAT HE DOES NOT SLEEP WELL AT HOME. FORGETS THAT HE HAS DAVALOS CATHETER AND QUESTIONS HOW TO URINATE. EXPLANATIONS GIVEN. PT TAUGHT TO SPLINT HIS CHEST TO IMPROVE COMFORT WITH COUGH. PT DEMONSTRATES THIS. WILL CONTINUE TO MONITOR PT.
[2021-05-03 04:51] LABS: Hematocrit 26.3 % (37.0-53.0); Hemoglobin 8.6 g/dL (13.5-17.5); Mean Corpuscular HGB 30.4 pg (26.0-34.0); Mean Corpuscular HGB Conc 32.7 g/dL (31.5-36.5); Mean Corpuscular Volume 93 fL (80-100); Mean Platelet Volume 9.6 fL (9.1-12.4); Platelet Count 103 K/mm3 (150-400); RDW Coefficient Variation 13.8 % (11.7-14.2); RDW Standard Deviation 47.1 fL (35.1-46.3); Red Blood Cell Count 2.83 M/mm3 (4.30-5.90); White Blood Cell Count 6.21 K/mm3 (4.00-11.30)
[2021-05-03 05:18] LABS: BAND PERCENT MAN 14 % (0-8); BASOPHILS PERCENT MAN 0 % (0-2); EOSINOPHILS PERCENT MAN 0 % (0-6); LYMPHOCYTES ABSOLUTE MAN 0.62 K/mm3 (0.84-5.20); LYMPHOCYTES PERCENT MAN 10 % (21-46); MONOCYTES ABSOLUTE MAN 0.62 K/mm3 (0.16-1.47); MONOCYTES PERCENT MAN 10 % (4-13); NEUTROPHILS ABSOLUTE MAN 4.96 K/mm3 (1.96-9.15); SEG NEUTROPHILS PERCENT MAN 66 % (41-73); TOTAL CELLS COUNTED 100
[2021-05-03 05:20] LABS: Albumin, Blood 1.7 g/dL (3.4-5.0); Anion Gap 6 mmol/L (6-16); Blood Urea Nitrogen 40 mg/dL (8-24); Bun/Creatinine Ratio 15.4 (12.0-20.0); CO2, Blood 24 mmol/L (21-32); CPK Creatine Kinase 994 U/L (39-308); Calcium, Blood 7.7 mg/dL (8.5-10.1); Chloride, Blood 110 mmol/L (98-108); Creatinine, Blood 2.59 mg/dL (0.60-1.20); Glomerular Filtration Rate 24 (60-); Glucose, Blood 133 mg/dL (70-99); Phosphorus, Blood 3.7 mg/dL (2.5-4.9); Potassium, Blood 4.5 mmol/L (3.5-5.5); Sodium, Blood 140 mmol/L (136-145)
--- NOTE | 2021-05-03 05:30 | NUR ---
PT HAS BEEN ABLE TO MAINTAIN > 90 PERCENT SATURATED WITH OXYMIZER. HAVE DECREASED FLOW TO 9 L/M. WILL CONSIDER DECREASING TO 8 L/M IF ABLE. PT MEDICATED ONCE WITH 50 MCG'S FENTANYL FOR BREAKTHROUGH PAIN. PT WAS ABLE TO REST SOME AFTERWARDS. HAS BEEN NOTICED HAVING MORE CONFUSION THE SHIFT PROGRESSES. EXPRESSED TO RN LPN CNA THAT HE WAS SEEING WORMS ON THE CEILING. PT REASSURED. HAS TOLERATED Q 2 HOUR TURNS IN BED. NEEDS COACHING THROUGHOUT THE TURN. WILL CONTINUE TO MONITOR PT, AND WILL REPORT OFF TO ONCOMING RN.
--- NOTE | 2021-05-03 07:45 | NUR ---
PATIENT AWAKE, REPOSITIONED IN BED TO ATTEMPT TO EAT BREAKFAST THIS AM. C/O OF RIB PAIN TO CHEST AREA. BLANKET AND PILLOW TO CHEST AREA FOR SUPPORT WHEN COUGHING. INCREASED EPIDURAL RATE 7ML/HR PER ORDERS. ENOURAGE CDB EXERCISES AND USED FLUTTER VALVE AT BEDSIDE. LUNGS REMAIN RHONCHI T/O WITH DECREASE BASES. OXYGEN DEMAND IMPROVING, 8L OXYMIZER WITH SATS 95%, TITRATE DOWN TOLERATED. CHEST TUBE IN PLACE RIGHT SIDE CHEST WALL TO WATER SEAL. CONTINUE TO MONITOR CLOSELY AND TX PRN.
--- NOTE | 2021-05-03 10:16 | NUR ---
PATIENT C/O HEADACHE, TYLENOL GIVEN. DR THAKKAR WAS HERE, NEW ORDERS.
--- NOTE | 2021-05-03 17:49 | NUR ---
PATIENT DOING BETTER TODAY WITH INCREASE CDB EXERCISES. LOOSE PRODUCTIVE COUGH NOTED INTO TISSUE. LUNGS REMAIN WET RHONCHI WITH SATS >90%; [address] FENTANYL/BUPAVCAINE EPIDURAL INFUSION AT 9ML/HR; INCREASED RATE TWICE TODAY FOR PAIN CONTROL. PATIENT STATES CHEST WALL/ABDOMINAL MUSCLES HURT. EDUCATED REGARDING MEDICAL STATUS. ENCOURAGE TO CONTINUE WITH CDB EXERCISES AND USING FLUTTER VALVE. POOR APPETITE, BLOOD SUGARS STABLE. OFFER LIQUID PO TOLERATED. INCREASE URINE OUTPUT NOTED TODAY. RIGHT CHEST TUBE TO WATER SEAL WITH MINIMUM RED COLOR DRAINAGE NOTED. BED BATH COMPLETE; REMOVAL OF LISETH WRAP TO RIGHT FOREARM. ABRASIONS/SKIN TEARS NOTED, MEPITEL DRESSING WAS APPLIED TO AREA AND SLING REPLACED DUE TO RIGHT SHOULDER INJURY. PHYSICAL THERAPY CONSULTED TODAY BUT WILL RE-ACCESS PATIENT TOMORROW. NO OTHER CHANGES NOTED. CONTINUE TO MONITOR AND TX PRN. WILL REPORT OFF TO NOC SHIFT.
--- NOTE | 2021-05-03 20:49 | NUR ---
CARE ASSUMPTION PT RESTING IN BED DENYING ANY NEEDS. O2 SATS >90% ON 5L OXYMIZER. EPIDURAL RUNNING AT 9ML/HR. BP WNL. HR ST 110'S.
[2021-05-04 04:13] LABS: BASOPHILS ABSOLUTE AUTO 0.01 K/mm3 (0.00-0.23); BASOPHILS PERCENT AUTO 0 % (0-2); EOSINOPHILS ABSOLUTE AUTO 0.05 K/mm3 (0.00-0.68); EOSINOPHILS PERCENT AUTO 1 % (0-6); Hematocrit 25.9 % (37.0-53.0); Hemoglobin 8.5 g/dL (13.5-17.5); IMMATURE GRAN ABSOLUTE AUTO 0.04 K/mm3 (0.00-0.10); IMMATURE GRAN PERCENT AUTO 1 % (0-1); LYMPHOCYTES ABSOLUTE AUTO 0.51 K/mm3 (0.84-5.20); LYMPHOCYTES PERCENT AUTO 9 % (21-46); MONOCYTES PERCENT AUTO 15 % (4-13); Mean Corpuscular HGB 30.7 pg (26.0-34.0); Mean Corpuscular HGB Conc 32.8 g/dL (31.5-36.5); Mean Corpuscular Volume 94 fL (80-100); Mean Platelet Volume 9.8 fL (9.1-12.4); NEUTROPHILS ABSOLUTE AUTO 4.02 K/mm3 (1.96-9.15); NEUTROPHILS PERCENT AUTO 74 % (41-73); Platelet Count 124 K/mm3 (150-400); RDW Coefficient Variation 14.1 % (11.7-14.2); RDW Standard Deviation 47.8 fL (35.1-46.3); Red Blood Cell Count 2.77 M/mm3 (4.30-5.90); White Blood Cell Count 5.43 K/mm3 (4.00-11.30)
[2021-05-04 04:42] LABS: Albumin, Blood 1.7 g/dL (3.4-5.0); Albumin/Globulin Ratio 0.4 (0.8-1.8); Bilirubin, Total 0.7 mg/dL (0.1-1.0); Bun/Creatinine Ratio 18.7 (12.0-20.0); Calcium, Blood 8.2 mg/dL (8.5-10.1); Creatinine, Blood 2.41 mg/dL (0.60-1.20); Globulin, Blood 3.8 g/dL (2.2-4.0); Phosphorus, Blood 3.8 mg/dL (2.5-4.9); Potassium, Blood 4.5 mmol/L (3.5-5.5); Total Protein, Blood 5.5 g/dL (6.4-8.2)
--- NOTE | 2021-05-04 06:10 | NUR ---
HEAVY EQUIPMENT SALES ASSOCIATE SUMMARY PT IS AXO X4 BUT WAS CONFUSED ABOUT WHETHER IT WAS DAYTIME OR NIGHT A COUPLE OF TIMES THROUGHOUT THIS SHIFT. PT'S BP WNL AND STABLE THIS SHIFT. HR HAS BEEN SR/ST 90-110'S THIS SHIFT. PEAK TEMP 98.8. O2 SATS >90% ON 7L VIA OXYMIZER. CHEST-TUBE PRODUCING 50ML OF SEROSANGUINEOUS FLUID THIS SHIFT. PT ASSISTED IN SPLINTED COUGHING AND DEEP BREATHING THROUGHOUT THIS SHIFT. PT ATTEMPTED TO HAVE A BM MULTIPLE TIMES THIS SHIFT W NO SUCCESS. EPIDURAL RUNNING AT 9ML/HR. LS ARE COARSE AND PT CONTINUES TO HAVE WET COUGH. IS AND FLUTTER VALVE USED THROUGHOUT THIS SHIFT. CBG'S 177 AND 141 THIS SHIFT.
--- NOTE | 2021-05-04 09:04 | NUR ---
PATIENT AWAKE THIS AM. CONFUSED OF THE DAY, BUT REORIENTS WELL. PATIENT LAYING IN BED WITH PILLOW ACROSS CHEST AREA TO HELP WITH COUGHING AND DEEP BREATHING EXERCISES. HURTS TO COUGH. FENTANYL/BUPIVACAINE EPIDURAL INFUSING AT 9ML/HR WITH BOLUS 4ML [id number] PRN. ABLE TO COUGH AND CLEAR SOME SECRETIONS, THICK CLEAR YELLOW. LUNGS RONCHI WITH LIGHT EXP. WHEEZE, DECREASE BASES. 02 7L/OXYMIZER WITH SATS >90%. RIGHT SIDE CHEST TUBE IN PLACE TO WATER SEAL WITH CLEAR RED SERIOUS SANG. GRAVITY DRAINAGE. IV SITE PATENT WITH GOOD BLOOD RETURN; SALINE LOCK. VSS. CONTINUE TO MONITOR AND TX MS.
--- NOTE | 2021-05-04 10:42 | NUR ---
NOT MUCH OF AN APPETITE FOR BREAKFAST THIS AM. ONLY TOOK A FEW BITES OF OATMEAL ONLY. RESTING/SLEEPING COMFORTABLE AT THIS TIME. CONTINUE TO MONITOR AND TX PRN.
--- NOTE | 2021-05-04 12:31 | NUR ---
DR THAKKAR HERE AT 1200 TO SEE PATIENT. DC'D RIGHT CHEST TUBE. VASOLINE GAUZE AND 4X4'S APPLIED TO AREA WITH STRETCH TAPE. STATUS CHANGE SURGICAL NO TELE. REFUSING TO EAT LUNCH, NOT HUNGRY. CONTINUE WITH FENTANYL/BUPIVACAINE EPIDURAL INFUSION FOR PAIN CONTROL. PHYSTICAL THERAPY CONSULTED. CONTINUES TO USE FLUTTER VALVE, INCENTIVE SPIROMETER AT BEDSIDE ALONG WITH CDB EXERCISES. SATS >90% WITH 7L OXYMIZER, TITRATE 02 DOWN TOLERATED.
--- NOTE | 2021-05-04 12:51 | NUR ---
REPORT CALLED TO WILLIS VERNON, TRANSFER TO 214 VIA BED.
--- NOTE | 2021-05-04 13:03 | NUR ---
CALLED SISTER AMY AND UPDATED ON STATUS AND TRANSFER TO ROOM 214. SISTER CONFIRMED THAT SHE RECEIVED PATIENTS CAR KEYS. SHE ALSO DILCIA HIM SOME CLEAN CLOTHES THIS AM.
--- NOTE | 2021-05-04 18:29 | NUR ---
PATIENT ARRIVED FROM ICU8 TODAY AT 1230. TRANSFERED TO BED FROM ICU BED VIA SLIDE SHEET. TOLERATED WELL. DAVALOS CATH IN PLACE AND PATENT DRAINING DARK BUBBA COLOR URINE. EPIDURAL DRESSING TO LOWER BACK INTACT, NOT DRAINAGE NOTED. PATIENT AWAKE AND ALERT. INTERMITANT CONFUSION NOTED. PATIENT VERY CONGESTED, COMPLAINS OF NOT BEING ABLE TO BREATH THROUGH NOSE. SALINE NOSE SPRAY USED WITH SOME RELIEF. O2 INCREASED TO 10 LITERS PATIENT CONTINUES TO DESAT ON THE 7 LITERS. GRADUALLY INCREASED UNTIL ABLE TO KEEP SATS AT OR ABOVE 90%. CURRENTLY AT 10 LITERS. CALL LIGHT IN EASY REACH. EPIDURAL BUTTON IN REACH AND USEDS OFTEN. ALL ITEMS IN EASY REACH. PATIENT COMPLAINS OF PAIN UPON COUGHING. RIGHT SHOULDER ELEVATED WITH PILLOW. SLING TO RIGHT ARM IN PLACE. DRESSING TO RIGHT CHEST WHERE CHEST TUBE WAS REMOVED TODAY IS CLEAN DRY AND INTACT. NO SIGNS OR SYMPTOMS ACUTE DISTRESS NOTED. ATE A FEW BITES OF DINNER WITH MUCH ENCOURAGEMENT FROM STAFF. NOTIFIED RT OF PATIENTS INCREASED NEED IN O2.
--- NOTE | 2021-05-05 06:30 | NUR ---
PT IS A/OX1-2, CONFUSED AND FORGETFUL. HE IS ABLE TO MAKE HIS NEEDS KNOWN. RUE IN SLING. 3 PERSON MAX ASSIST WITH REPOSITIONING. CHEST TUBE WAS REMOVED YEST; OLD CT SITE DRSG IS CDI. AUDIBLE WHEEZING NOTED. OXYGEN AT 10L PER OXYMIZER. CONT PULSE OX IN PLACE. I/S AND FLUTTER AT BEDSIDE. INHALERS PER RT. FENTANYL EPIDURAL POWDER OPERATOR IN PLACE. LUE POWERGLIDE PATENT, SL. HAS SCATTERED PURPLE BRUISING AND ABRASIONS, MOSTLY TO RT SIDE, SUSTAINED FROM FALL. DAVALOS CATHETER PATENT, DRAINING YELLOW URINE.
[2021-05-05 08:50] LABS: Hemoglobin 8.7 g/dL (13.5-17.5); Mean Corpuscular HGB 30.2 pg (26.0-34.0); Mean Corpuscular HGB Conc 32.2 g/dL (31.5-36.5); Mean Corpuscular Volume 94 fL (80-100); Mean Platelet Volume 9.4 fL (9.1-12.4); Platelet Count 135 K/mm3 (150-400); RDW Coefficient Variation 14.2 % (11.7-14.2); RDW Standard Deviation 47.6 fL (35.1-46.3); Red Blood Cell Count 2.88 M/mm3 (4.30-5.90); White Blood Cell Count 6.37 K/mm3 (4.00-11.30)
[2021-05-05 09:07] LABS: CPK Creatine Kinase 340 U/L (39-308)
[2021-05-05 09:08] LABS: Albumin, Blood 1.6 g/dL (3.4-5.0); Anion Gap 6 mmol/L (6-16); Blood Urea Nitrogen 51 mg/dL (8-24); Bun/Creatinine Ratio 22.6 (12.0-20.0); CO2, Blood 26 mmol/L (21-32); Calcium, Blood 8.6 mg/dL (8.5-10.1); Chloride, Blood 110 mmol/L (98-108); Creatinine, Blood 2.26 mg/dL (0.60-1.20); Glomerular Filtration Rate 29 (60-); Glucose, Blood 115 mg/dL (70-99); Phosphorus, Blood 4.1 mg/dL (2.5-4.9); Potassium, Blood 4.5 mmol/L (3.5-5.5); Sodium, Blood 142 mmol/L (136-145)
--- NOTE | 2021-05-05 18:05 | NUR ---
PATIENT HAD A GOOD DAY TODAY. HE WORKED WITH THERAPY AND SAT EDGE OF BED, WITH MAX ASSIST. EPIDURAL WAS REMOVED BY DR CUNHA, BOLUS OF FLUIDS GIVEN DUE TO LOW BP AFTER DC. STARTED PO PAIN MEDS AND SEEM TO EFFECTIVE FOR PATIENTS PAIN. DAVALOS CATH REMOVED AT 1800. PATIENT HAD BM TODAY. A&O X 4, ABLE TO MAKE NEEDS AND WANTS KNOWN. PATIENT DOES HAVE SOME INTERMITANT CONFUSION NOTED BUT REDIRECTED EASILY. NO SIGNS OR SYMPTOMS ACUTE DISTRESS NOTED. O2 AT 6L PER OXIMIZER AT THIS TIME, TOLERATING WELL. APPETITE VERY POOR, ENCOURAGED PO FLUIDS. CALL LIGHT IN EASY REACH. WILL MONITOR.
[2021-05-06 05:03] LABS: Hematocrit 25.9 % (37.0-53.0); Hemoglobin 8.5 g/dL (13.5-17.5); Mean Corpuscular HGB 30.9 pg (26.0-34.0); Mean Corpuscular HGB Conc 32.8 g/dL (31.5-36.5); Mean Corpuscular Volume 94 fL (80-100); Mean Platelet Volume 9.9 fL (9.1-12.4); Platelet Count 143 K/mm3 (150-400); RDW Coefficient Variation 14.1 % (11.7-14.2); RDW Standard Deviation 48.3 fL (35.1-46.3); Red Blood Cell Count 2.75 M/mm3 (4.30-5.90); White Blood Cell Count 6.18 K/mm3 (4.00-11.30)
[2021-05-06 05:27] LABS: Albumin, Blood 1.4 g/dL (3.4-5.0); Anion Gap 5 mmol/L (6-16); Blood Urea Nitrogen 51 mg/dL (8-24); Bun/Creatinine Ratio 24.5 (12.0-20.0); CO2, Blood 26 mmol/L (21-32); Calcium, Blood 8.5 mg/dL (8.5-10.1); Chloride, Blood 112 mmol/L (98-108); Creatinine, Blood 2.08 mg/dL (0.60-1.20); Glomerular Filtration Rate 31 (60-); Glucose, Blood 97 mg/dL (70-99); Phosphorus, Blood 3.9 mg/dL (2.5-4.9); Potassium, Blood 4.7 mmol/L (3.5-5.5); Sodium, Blood 143 mmol/L (136-145)
[2021-05-06 08:10] LABS: PCO2 Arterial 41.7 mmHg (35-45)
--- NOTE | 2021-05-06 18:09 | NUR ---
PATIENT WORKED WITH PT AND OT TODAY. DID FAIRLY WELL. COMPLAINS OF PAIN AND EXPECTS TO BE COMPLETELY PAIN FREE. EDUCATED PATIENT. NEW ORDERS FOR PAIN MEDS PER DR SRINIVASAN. NO SIGNS OR SYMPTOMS ACUTE DISTRESS NOTED. CALL LIGHT AND WATER IN EASY REACH. ABLE TO MAKE NEEDS AND WANTS KNOWN. ENCOUGRAGED USED OF IS AND FLUTTER. O2 WITH OXIMIZER AT 6 LITERS. WILL MONITOR.
[2021-05-07 04:30] LABS: Hematocrit 28.8 % (37.0-53.0); Hemoglobin 9.1 g/dL (13.5-17.5); Mean Corpuscular HGB 30.3 pg (26.0-34.0); Mean Corpuscular HGB Conc 31.6 g/dL (31.5-36.5); Mean Corpuscular Volume 96 fL (80-100); Mean Platelet Volume 9.6 fL (9.1-12.4); Platelet Count 169 K/mm3 (150-400); RDW Coefficient Variation 14.3 % (11.7-14.2); RDW Standard Deviation 49.9 fL (35.1-46.3); White Blood Cell Count 6.67 K/mm3 (4.00-11.30)
[2021-05-07 04:49] LABS: Albumin, Blood 1.5 g/dL (3.4-5.0); Anion Gap 6 mmol/L (6-16); Blood Urea Nitrogen 52 mg/dL (8-24); CO2, Blood 26 mmol/L (21-32); Calcium, Blood 8.9 mg/dL (8.5-10.1); Chloride, Blood 112 mmol/L (98-108); Glomerular Filtration Rate 33 (60-); Glucose, Blood 107 mg/dL (70-99); Phosphorus, Blood 4.4 mg/dL (2.5-4.9); Potassium, Blood 4.8 mmol/L (3.5-5.5); Sodium, Blood 144 mmol/L (136-145)
--- NOTE | 2021-05-07 05:48 | NUR ---
PT IS A/OX2-3 WITH CONFUSION. ABLE TO MAKE HIS NEEDS KNOWN. NO EVENTS DURING THE NIGHT. SLEPT BETTER THIS NIGHT. OXYGEN AT 6L PER OXYMIZER. WHEEZES NOTED. RUE IN SLING. GOOD CSM'S. USES URINAL AND BEDPAN. PAIN MANAGED WITH PRN MS AND PERC. LUE POWERGLIDE PATENT.
--- NOTE | 2021-05-07 17:24 | NUR ---
PATIENT HAD A GOOD DAY TODAY. NO SIGNS OR SYMPTOMS ACUTE DISTRESS NOTED. PATIENT WORKED WITH PT AND OT TODAY AND SAT ON EDGE OF BED FOR 6 MINUTES AND STOOD AT BESIDE FOR 2 MINUTES WITH MIN/MOD ASSIST. AAO X 4. ABLE TO MAKE NEEDS AND WANTS KNOWN. HAS HAD PAIN MEDS TWICE TODAY, ONCE IV AND ONCE PO. PATIENT GOT SHAVED TODAY AND WATCHED TV. CALL LIGHT AND WATER IN EASY REACH. O2 AT 5L ON OXIMIZER. WILL CONTINUE TO MONITOR.
[2021-05-08 05:18] LABS: Bun/Creatinine Ratio 27.9 (12.0-20.0); Creatinine, Blood 2.04 mg/dL (0.60-1.20); Potassium, Blood 4.6 mmol/L (3.5-5.5)
--- NOTE | 2021-05-08 06:23 | NUR ---
PT IS A/OX3. MORE LUCID TONIGHT BUT DOES HAVE OCCASIONAL CONFUSION. IS ABLE TO MAKE HIS NEEDS KNOWN. NO EVENTS DURING THE NIGHT. RUE IN SLING. GOOD CSM'S TO RUE/RT HAND. BRUISNG/ABRASIONS TO RT HIP, RLE, SCROTUM/PENIS SUSTAINED IN FALL. OXYGEN AT 5L PER OXYMIZER. VOIDS PER URINAL. BT'S POS. NO N/V. PAIN MANAGED PER PT REQUEST WITH PRN MEDS.
[2021-05-08 13:07] LABS: SARS-Cov-2 (COVID-19) PCR, MMC NEGATIVE (NEGATIVE)
--- NOTE | 2021-05-08 17:55 | NUR ---
PATIENT DISCHARGED TO [facility] AT THIS TIME. REPORT CALLED TO CORTNEY FOSTER AT THE NURSING FACILITY. PATIENT BEING TRANSPORTED VIA STRETCHER.
== END 2021-05-08 17:55 | DRG 963 ==
LOC: ER 12:40 → MEDS 17:23 → SURS 17:23 → ICUE 17:23 → SURS 18:06 → ICUE 05-02 10:37 → SURS 05-04 13:20
PROVIDERS: Emergency Medicine; Internal Medicine; Nurse Practitioner Acute Care; Surgery; ADMIT Surgery
PROC: 0W9930Z Drainage of Right Pleural Cavity with Drainage Device, Percutaneous Approach (ICD-10-PCS; principal; 2021-04-30)
PROC: 00HU33Z Insertion of Infusion Device into Spinal Canal, Percutaneous Approach (ICD-10-PCS; 2021-05-02)
PROC: 3E0R3BZ Introduction of Anesthetic Agent into Spinal Canal, Percutaneous Approach (ICD-10-PCS; 2021-05-02)
PROC: 3E0R3NZ Introduction of Analgesics, Hypnotics, Sedatives into Spinal Canal, Percutaneous Approach (ICD-10-PCS; 2021-05-02)
PROC: 3E0234Z Introduction of Serum, Toxoid and Vaccine into Muscle, Percutaneous Approach (ICD-10-PCS; 2021-05-02)
DX: S27.0XXA Traumatic pneumothorax, initial encounter (principal); J96.01 Acute respiratory failure with hypoxia; S37.0 Injury of kidney; J18.9 Pneumonia, unspecified organism; S22.41XA Multiple fractures of ribs, right side, initial encounter for closed fracture; N17.9 Acute kidney failure, unspecified; N18.4 Chronic kidney disease, stage 4 (severe); Z23 Encounter for immunization; E66.9 Obesity, unspecified; Z20.822 Contact with and (suspected) exposure to COVID-19; I12.9 Hypertensive chronic kidney disease with stage 1 through stage 4 chronic kidney disease, or unspecified chronic kidney disease; T79.6XXA Traumatic ischemia of muscle, initial encounter; E11.22 Type 2 diabetes mellitus with diabetic chronic kidney disease; R91.1 Solitary pulmonary nodule; S42.131A Displaced fracture of coracoid process, right shoulder, initial encounter for closed fracture; J44.9 Chronic obstructive pulmonary disease, unspecified; F17.210 Nicotine dependence, cigarettes, uncomplicated; S43.314A Dislocation of right scapula, initial encounter; D69.6 Thrombocytopenia, unspecified; D64.9 Anemia, unspecified; D35.00 Benign neoplasm of unspecified adrenal gland; E78.5 Hyperlipidemia, unspecified; Z68.37 Body mass index [BMI] 37.0-37.9, adult; Z88.0 Allergy status to penicillin; Z88.1 Allergy status to other antibiotic agents; Z88.8 Allergy status to other drugs, medicaments and biological substances; Z91.010 Allergy to peanuts; Z98.52 Vasectomy status; Z79.82 Long term (current) use of aspirin; Z79.84 Long term (current) use of oral hypoglycemic drugs; Z79.899 Other long term (current) drug therapy; W12.XXXA Fall on and from scaffolding, initial encounter
CPT/HCPCS: 23650; 32551; 36415; 36600; 51702; 70450; 71045; 71260; 72125; 73020; 74177; 80048; 80053; 80069; 81001; 82550; 82803; 82947; 83690; 83735; 83880; 84100; 84145; 85014; 85018; 85025; 85027; 85610; 87077; 87086; 87186; 90471; 90714; 94640; 94667; 94668; 94761; 94762; 96374-59; 97110; 97161; 97167; 97530; 97535; 99285-25; A9270; C1751; G0480; J1170; J1200; J1644; J1650; J2250; J2270; J2370; J2405; J2916; J3010; J7030; J7120; Q9967; U0004

== ENCOUNTER → 2021-06-11 | Outpatient (CLI) | payer OTHER ==
[~2021-06-11] MED LIST changes: +GLIP10 PO; +LISINOPRIL-HCT1 EACH PO; +Simvastatin40 MG PO
[2021-06-11 16:01] LABS: BASOPHILS ABSOLUTE AUTO 0.03 K/mm3 (0.00-0.23); BASOPHILS PERCENT AUTO 1 % (0-2); EOSINOPHILS ABSOLUTE AUTO 0.21 K/mm3 (0.00-0.68); EOSINOPHILS PERCENT AUTO 3 % (0-6); Hematocrit 34.2 % (37.0-53.0); Hemoglobin 10.7 g/dL (13.5-17.5); IMMATURE GRAN ABSOLUTE AUTO 0.03 K/mm3 (0.00-0.10); IMMATURE GRAN PERCENT AUTO 1 % (0-1); LYMPHOCYTES ABSOLUTE AUTO 1.87 K/mm3 (0.84-5.20); LYMPHOCYTES PERCENT AUTO 30 % (21-46); MONOCYTES ABSOLUTE AUTO 0.71 K/mm3 (0.16-1.47); MONOCYTES PERCENT AUTO 11 % (4-13); Mean Corpuscular HGB 27.9 pg (26.0-34.0); Mean Corpuscular HGB Conc 31.3 g/dL (31.5-36.5); Mean Corpuscular Volume 89 fL (80-100); Mean Platelet Volume 10.4 fL (9.1-12.4); NEUTROPHILS ABSOLUTE AUTO 3.36 K/mm3 (1.96-9.15); NEUTROPHILS PERCENT AUTO 54 % (41-73); Platelet Count 185 K/mm3 (150-400); RDW Coefficient Variation 14.6 % (11.7-14.2); RDW Standard Deviation 47.2 fL (35.1-46.3); Red Blood Cell Count 3.83 M/mm3 (4.30-5.90); White Blood Cell Count 6.21 K/mm3 (4.00-11.30)
[2021-06-11 16:08] LABS: Albumin, Blood 2.8 g/dL (3.4-5.0); Albumin/Globulin Ratio 0.6 (0.8-1.8); Bilirubin, Total 0.5 mg/dL (0.1-1.0); Bun/Creatinine Ratio 10.3 (12.0-20.0); Calcium, Blood 8.7 mg/dL (8.5-10.1); Creatinine, Blood 1.65 mg/dL (0.60-1.20); Globulin, Blood 4.6 g/dL (2.2-4.0); Potassium, Blood 3.9 mmol/L (3.5-5.5); Total Protein, Blood 7.4 g/dL (6.4-8.2)
== END | disposition home or self-care (01) ==
LOC: LAB SHORT 11:58 → LAB 11:58
PROVIDERS: Family Medicine
DX: I10 Essential (primary) hypertension (principal)
CPT/HCPCS: 80053; 85025

== ENCOUNTER 2021-07-16 11:29 | Emergency (ER) | payer OTHER ==
[~2021-07-16] VITALS: Ht 160 cm; Wt 81.7 kg
[2021-07-16 12:07] LABS: BASOPHILS ABSOLUTE AUTO 0.05 K/mm3 (0.00-0.23); BASOPHILS PERCENT AUTO 1 % (0-2); EOSINOPHILS ABSOLUTE AUTO 0.26 K/mm3 (0.00-0.68); EOSINOPHILS PERCENT AUTO 4 % (0-6); Hematocrit 38.7 % (37.0-53.0); Hemoglobin 12.2 g/dL (13.5-17.5); IMMATURE GRAN ABSOLUTE AUTO 0.03 K/mm3 (0.00-0.10); IMMATURE GRAN PERCENT AUTO 1 % (0-1); LYMPHOCYTES ABSOLUTE AUTO 1.74 K/mm3 (0.84-5.20); LYMPHOCYTES PERCENT AUTO 27 % (21-46); MONOCYTES ABSOLUTE AUTO 0.53 K/mm3 (0.16-1.47); MONOCYTES PERCENT AUTO 8 % (4-13); Mean Corpuscular HGB 27.5 pg (26.0-34.0); Mean Corpuscular HGB Conc 31.5 g/dL (31.5-36.5); Mean Corpuscular Volume 87 fL (80-100); NEUTROPHILS ABSOLUTE AUTO 3.82 K/mm3 (1.96-9.15); NEUTROPHILS PERCENT AUTO 59 % (41-73); Platelet Count 212 K/mm3 (150-400); RDW Coefficient Variation 14.3 % (11.7-14.2); RDW Standard Deviation 45.8 fL (35.1-46.3); Red Blood Cell Count 4.44 M/mm3 (4.30-5.90); White Blood Cell Count 6.43 K/mm3 (4.00-11.30)
[2021-07-16 12:31] LABS: Alanine Aminotransfer (ALT/SGP 16 U/L (12-78); Albumin/Globulin Ratio 0.7 (0.8-1.8); Alk Phos 87 U/L (50-136); Anion Gap 9 mmol/L (6-16); Aspartate Aminotrans (AST/SGOT 11 U/L (12-37); Bilirubin, Total 0.3 mg/dL (0.1-1.0); Blood Urea Nitrogen 18 mg/dL (8-24); Bun/Creatinine Ratio 14.1 (12.0-20.0); CO2, Blood 25 mmol/L (21-32); Calcium, Blood 8.9 mg/dL (8.5-10.1); Chloride, Blood 107 mmol/L (98-108); Creatinine, Blood 1.28 mg/dL (0.60-1.20); Globulin, Blood 4.5 g/dL (2.2-4.0); Glomerular Filtration Rate 55 (60-); Glucose, Blood 234 mg/dL (70-99); Potassium, Blood 3.5 mmol/L (3.5-5.5); Sodium, Blood 141 mmol/L (136-145); Total Protein, Blood 7.5 g/dL (6.4-8.2); Troponin I <0.015 ng/mL (0.000-0.040)
[2021-07-16] MEDS ORDERED: MELATONIN5 M1 PO (14:45)
[2021-07-16] MEDS ORDERED: ZOLP5 PO (14:45)
== END 2021-07-16 15:06 | disposition home or self-care (01) ==
LOC: ER 11:29
PROVIDERS: Physician Assistant
DX: M54.14 Radiculopathy, thoracic region (principal); G47.00 Insomnia, unspecified; I10 Essential (primary) hypertension; E11.9 Type 2 diabetes mellitus without complications; E78.5 Hyperlipidemia, unspecified; Z79.899 Other long term (current) drug therapy; Z88.0 Allergy status to penicillin; Z88.8 Allergy status to other drugs, medicaments and biological substances
CPT/HCPCS: 36415; 71046; 80053; 83690; 84484; 85025; 93005; 93010; 99285-25

== ENCOUNTER 2021-08-31 17:49 | Emergency (ER) | payer OTHER ==
[~2021-08-31] VITALS: Ht 160 cm; Wt 83.9 kg
[~2021-08-31 17:49] MED LIST changes: +MELATONIN5 M1 PO; +Percocet 10-321 EACH PO; +ZOLP5 PO
[2021-08-31] MEDS ORDERED: GABA300 PO (19:49)
[2021-08-31] MEDS ORDERED: Millipred5 MG PO (19:49)
[2021-08-31] MEDS ORDERED: NAPR500 PO (19:49)
== END 2021-08-31 20:14 | disposition home or self-care (01) ==
LOC: ER 17:49
DX: M54.12 Radiculopathy, cervical region (principal); M75.101 Unspecified rotator cuff tear or rupture of right shoulder, not specified as traumatic; M19.011 Primary osteoarthritis, right shoulder; Z88.0 Allergy status to penicillin; Z88.1 Allergy status to other antibiotic agents; Z88.8 Allergy status to other drugs, medicaments and biological substances; Z91.010 Allergy to peanuts; Z79.82 Long term (current) use of aspirin; Z79.899 Other long term (current) drug therapy; I12.9 Hypertensive chronic kidney disease with stage 1 through stage 4 chronic kidney disease, or unspecified chronic kidney disease; E11.22 Type 2 diabetes mellitus with diabetic chronic kidney disease; N18.30 Chronic kidney disease, stage 3 unspecified; E78.5 Hyperlipidemia, unspecified; F17.210 Nicotine dependence, cigarettes, uncomplicated
CPT/HCPCS: 93971; 96372; 99283-25; A9270; J1885

== ENCOUNTER 2021-10-03 19:12 | Emergency (ER) | payer OTHER ==
[~2021-10-03] VITALS: Ht 160 cm; Wt 81.7 kg
[~2021-10-03 19:12] MED LIST changes: +GABA300 PO; +Millipred5 MG PO; +NAPR500 PO
== END 2021-10-03 20:25 | disposition home or self-care (01) ==
LOC: ER 19:12
DX: M25.511 Pain in right shoulder (principal); I10 Essential (primary) hypertension; E11.9 Type 2 diabetes mellitus without complications; E78.5 Hyperlipidemia, unspecified; Z79.899 Other long term (current) drug therapy; Z88.0 Allergy status to penicillin; F17.210 Nicotine dependence, cigarettes, uncomplicated
CPT/HCPCS: 99283; A9270

== ENCOUNTER 2021-12-21 10:21 | Emergency (ER) | payer OTHER ==
[~2021-12-21] VITALS: Ht 160 cm; Wt 91.2 kg
[2021-12-21] MEDS ORDERED: ALEVAZOL TOP (11:01)
[2021-12-21] MEDS ORDERED: CLINDAMYCIN HC300 MG PO (11:01)
[2021-12-21] MEDS ORDERED: METPRE4DP PO (11:01)
== END 2021-12-21 11:10 | disposition home or self-care (01) ==
LOC: ER 10:21
DX: L03.311 Cellulitis of abdominal wall (principal); L30.9 Dermatitis, unspecified; I12.9 Hypertensive chronic kidney disease with stage 1 through stage 4 chronic kidney disease, or unspecified chronic kidney disease; N18.30 Chronic kidney disease, stage 3 unspecified; E11.22 Type 2 diabetes mellitus with diabetic chronic kidney disease; E78.5 Hyperlipidemia, unspecified; F17.210 Nicotine dependence, cigarettes, uncomplicated; Z79.84 Long term (current) use of oral hypoglycemic drugs; Z79.899 Other long term (current) drug therapy; Z79.82 Long term (current) use of aspirin
CPT/HCPCS: 99282

== ENCOUNTER → 2022-01-08 | Outpatient (CLI) | payer OTHER ==
[~2022-01-08] MED LIST changes: +ALEVAZOL TOP; +CLINDAMYCIN HC300 MG PO
== END | disposition home or self-care (01) ==
LOC: LAB SHORT 14:55 → PLD 14:55
DX: L30.8 Other specified dermatitis (principal)
CPT/HCPCS: 88305; 88312

== ENCOUNTER 2022-03-09 02:05 | Emergency (ER) | payer OTHER ==
[~2022-03-09] VITALS: Ht 160 cm; Wt 83.9 kg
== END 2022-03-09 03:31 | disposition home or self-care (01) ==
LOC: ER 02:05
DX: L25.9 Unspecified contact dermatitis, unspecified cause (principal); I12.9 Hypertensive chronic kidney disease with stage 1 through stage 4 chronic kidney disease, or unspecified chronic kidney disease; E11.22 Type 2 diabetes mellitus with diabetic chronic kidney disease; N18.9 Chronic kidney disease, unspecified; E78.5 Hyperlipidemia, unspecified; F17.210 Nicotine dependence, cigarettes, uncomplicated; Z79.899 Other long term (current) drug therapy; Z79.82 Long term (current) use of aspirin; Z88.0 Allergy status to penicillin; Z88.8 Allergy status to other drugs, medicaments and biological substances; Z88.1 Allergy status to other antibiotic agents; Z91.010 Allergy to peanuts
CPT/HCPCS: J1100

== ENCOUNTER → 2022-03-18 | Outpatient (CLI) | payer OTHER ==
[~2022-03-18] MED LIST changes: +AMLO5 PO; +Cleocin HCl300 MG PO; +METF500 PO
== END | disposition home or self-care (01) ==
LOC: PLD 15:06 → LAB SHORT 15:06
DX: L30.8 Other specified dermatitis (principal); R23.4 Changes in skin texture
CPT/HCPCS: 88305; 88312

== ENCOUNTER 2022-03-22 23:52 | Emergency (ER) | payer OTHER | END 2022-03-23 01:27 | disposition home or self-care (01) | LOC: ER 23:52 | DX: L02.11 Cutaneous abscess of neck (principal); E11.22 Type 2 diabetes mellitus with diabetic chronic kidney disease; I12.9 Hypertensive chronic kidney disease with stage 1 through stage 4 chronic kidney disease, or unspecified chronic kidney disease; N18.9 Chronic kidney disease, unspecified; F17.210 Nicotine dependence, cigarettes, uncomplicated; Z88.0 Allergy status to penicillin; Z88.1 Allergy status to other antibiotic agents; Z88.8 Allergy status to other drugs, medicaments and biological substances; Z91.010 Allergy to peanuts; Z79.82 Long term (current) use of aspirin; Z79.899 Other long term (current) drug therapy ==

== ENCOUNTER 2022-03-25 02:10 | Emergency (ER) | payer OTHER ==
[~2022-03-25] VITALS: Ht 160 cm; Wt 90.7 kg
== END 2022-03-25 05:29 | disposition home or self-care (01) ==
LOC: ER 02:10
DX: L02.11 Cutaneous abscess of neck (principal); I12.9 Hypertensive chronic kidney disease with stage 1 through stage 4 chronic kidney disease, or unspecified chronic kidney disease; N18.9 Chronic kidney disease, unspecified; E11.9 Type 2 diabetes mellitus without complications; E78.5 Hyperlipidemia, unspecified; F17.210 Nicotine dependence, cigarettes, uncomplicated; Z79.84 Long term (current) use of oral hypoglycemic drugs; Z88.0 Allergy status to penicillin; Z88.8 Allergy status to other drugs, medicaments and biological substances; Z88.1 Allergy status to other antibiotic agents; Z91.010 Allergy to peanuts; Z79.899 Other long term (current) drug therapy
CPT/HCPCS: A9270; J3010

== ENCOUNTER 2022-05-26 00:56 | Emergency (ER) | payer OTHER ==
[~2022-05-26] VITALS: Ht 160 cm; Wt 86.2 kg
[~2022-05-26 00:56] MED LIST changes: +CLOBETTC TOP; +Diflucan100 MG PO
== END 2022-05-26 03:18 | disposition home or self-care (01) ==
LOC: ER 00:56
DX: S50.311A Abrasion of right elbow, initial encounter (principal); S50.811A Abrasion of right forearm, initial encounter; L30.9 Dermatitis, unspecified; I12.9 Hypertensive chronic kidney disease with stage 1 through stage 4 chronic kidney disease, or unspecified chronic kidney disease; E11.22 Type 2 diabetes mellitus with diabetic chronic kidney disease; N18.9 Chronic kidney disease, unspecified; E78.5 Hyperlipidemia, unspecified; F17.210 Nicotine dependence, cigarettes, uncomplicated; Z88.0 Allergy status to penicillin; Z88.1 Allergy status to other antibiotic agents; Z91.010 Allergy to peanuts; Z88.8 Allergy status to other drugs, medicaments and biological substances; Z79.82 Long term (current) use of aspirin; Z79.84 Long term (current) use of oral hypoglycemic drugs; Z79.899 Other long term (current) drug therapy; W11.XXXA Fall on and from ladder, initial encounter
CPT/HCPCS: 73080; J1100

== ENCOUNTER → 2022-06-13 | Outpatient (CLI) | payer OTHER ==
[~2022-06-13] MED LIST changes: +HYDR1TAB94 PO
[2022-06-13 12:45] LABS: BASOPHILS ABSOLUTE AUTO 0.04 K/mm3 (0.00-0.23); BASOPHILS PERCENT AUTO 1 % (0-2); EOSINOPHILS ABSOLUTE AUTO 0.14 K/mm3 (0.00-0.68); EOSINOPHILS PERCENT AUTO 2 % (0-6); Hematocrit 40.3 % (37.0-53.0); Hemoglobin 13.5 g/dL (13.5-17.5); IMMATURE GRAN ABSOLUTE AUTO 0.03 K/mm3 (0.00-0.10); IMMATURE GRAN PERCENT AUTO 1 % (0-1); LYMPHOCYTES ABSOLUTE AUTO 1.49 K/mm3 (0.84-5.20); LYMPHOCYTES PERCENT AUTO 24 % (21-46); MONOCYTES ABSOLUTE AUTO 0.58 K/mm3 (0.16-1.47); MONOCYTES PERCENT AUTO 9 % (4-13); Mean Corpuscular HGB 29.9 pg (26.0-34.0); Mean Corpuscular HGB Conc 33.5 g/dL (31.5-36.5); Mean Corpuscular Volume 89 fL (80-100); Mean Platelet Volume 9.2 fL (9.1-12.4); NEUTROPHILS PERCENT AUTO 64 % (41-73); Platelet Count 191 K/mm3 (150-400); RDW Coefficient Variation 13.4 % (11.7-14.2); Red Blood Cell Count 4.51 M/mm3 (4.30-5.90); White Blood Cell Count 6.28 K/mm3 (4.00-11.30)
[2022-06-13 13:05] LABS: Albumin, Blood 3.5 g/dL (3.4-5.0); Albumin/Globulin Ratio 0.9 (0.8-1.8); Bilirubin, Total 0.2 mg/dL (0.1-1.0); Bun/Creatinine Ratio 9.9 (12.0-20.0); Calcium, Blood 8.6 mg/dL (8.5-10.1); Creatinine, Blood 2.03 mg/dL (0.60-1.20); Globulin, Blood 3.9 g/dL (2.2-4.0); Potassium, Blood 4.2 mmol/L (3.5-5.5); Total Protein, Blood 7.4 g/dL (6.4-8.2)
== END | disposition home or self-care (01) ==
LOC: LAB SHORT 12:40 → LAB 12:40
PROVIDERS: General Practice
DX: R07.9 Chest pain, unspecified (principal)
CPT/HCPCS: 80053; 84484; 85025

== ENCOUNTER 2022-06-15 15:22 | Emergency (ER) | payer OTHER ==
[~2022-06-15] VITALS: Ht 160 cm; Wt 88.5 kg
[~2022-06-15 15:22] MED LIST changes: -HYDR1TAB94 PO
[2022-06-15] MEDS ORDERED: HYDR1TAB94 PO (19:09)
== END 2022-06-15 19:38 | disposition home or self-care (01) ==
LOC: ER 15:22
DX: S43.014A Anterior dislocation of right humerus, initial encounter (principal); S43.034A Inferior dislocation of right humerus, initial encounter; X58.XXXA Exposure to other specified factors, initial encounter; I12.9 Hypertensive chronic kidney disease with stage 1 through stage 4 chronic kidney disease, or unspecified chronic kidney disease; E11.22 Type 2 diabetes mellitus with diabetic chronic kidney disease; N18.9 Chronic kidney disease, unspecified; E03.9 Hypothyroidism, unspecified; F17.210 Nicotine dependence, cigarettes, uncomplicated; Z88.1 Allergy status to other antibiotic agents; Z88.2 Allergy status to sulfonamides; Z88.0 Allergy status to penicillin; Z91.010 Allergy to peanuts; Z79.899 Other long term (current) drug therapy; Z79.82 Long term (current) use of aspirin; Z79.84 Long term (current) use of oral hypoglycemic drugs
CPT/HCPCS: 73030; A9270

== ENCOUNTER 2022-09-09 17:41 | Emergency (ER) | payer OTHER ==
[~2022-09-09] VITALS: Ht 160 cm; Wt 88.5 kg
[~2022-09-09 17:41] MED LIST changes: +HYDR1TAB94 PO; +TRAM50 PO
[2022-09-09 18:17] LABS: BASOPHILS ABSOLUTE AUTO 0.03 K/mm3 (0.00-0.23); BASOPHILS PERCENT AUTO 1 % (0-2); EOSINOPHILS ABSOLUTE AUTO 0.13 K/mm3 (0.00-0.68); EOSINOPHILS PERCENT AUTO 2 % (0-6); Hematocrit 39.8 % (37.0-53.0); Hemoglobin 13.8 g/dL (13.5-17.5); IMMATURE GRAN ABSOLUTE AUTO 0.03 K/mm3 (0.00-0.10); IMMATURE GRAN PERCENT AUTO 1 % (0-1); LYMPHOCYTES PERCENT AUTO 24 % (21-46); MONOCYTES ABSOLUTE AUTO 0.56 K/mm3 (0.16-1.47); MONOCYTES PERCENT AUTO 10 % (4-13); Mean Corpuscular HGB 29.1 pg (26.0-34.0); Mean Corpuscular HGB Conc 34.7 g/dL (31.5-36.5); Mean Corpuscular Volume 84 fL (80-100); Mean Platelet Volume 9.1 fL (9.1-12.4); NEUTROPHILS ABSOLUTE AUTO 3.72 K/mm3 (1.96-9.15); NEUTROPHILS PERCENT AUTO 63 % (41-73); Platelet Count 172 K/mm3 (150-400); RDW Coefficient Variation 13.7 % (11.7-14.2); RDW Standard Deviation 42.2 fL (35.1-46.3); Red Blood Cell Count 4.74 M/mm3 (4.30-5.90); White Blood Cell Count 5.87 K/mm3 (4.00-11.30)
[2022-09-09 18:42] LABS: Albumin, Blood 3.3 g/dL (3.4-5.0); Albumin/Globulin Ratio 0.8 (0.8-1.8); Bilirubin, Total 0.2 mg/dL (0.1-1.0); Bun/Creatinine Ratio 13.9 (12.0-20.0); Creatinine, Blood 1.8 mg/dL (0.60-1.20); Globulin, Blood 4.1 g/dL (2.2-4.0); Potassium, Blood 3.8 mmol/L (3.5-5.5); Total Protein, Blood 7.4 g/dL (6.4-8.2)
[2022-09-09] MEDS ORDERED: SKYRIZI75 MG/0.81 SQ (20:19)
== END 2022-09-09 21:15 | disposition home or self-care (01) ==
LOC: ER 17:41
PROVIDERS: Physician Assistant
DX: R07.89 Other chest pain (principal); E11.22 Type 2 diabetes mellitus with diabetic chronic kidney disease; I12.9 Hypertensive chronic kidney disease with stage 1 through stage 4 chronic kidney disease, or unspecified chronic kidney disease; N18.9 Chronic kidney disease, unspecified; F17.210 Nicotine dependence, cigarettes, uncomplicated; R42 Dizziness and giddiness; Z79.899 Other long term (current) drug therapy; Z79.82 Long term (current) use of aspirin; Z79.84 Long term (current) use of oral hypoglycemic drugs; Z88.0 Allergy status to penicillin; Z88.2 Allergy status to sulfonamides; Z88.8 Allergy status to other drugs, medicaments and biological substances; Z91.010 Allergy to peanuts
CPT/HCPCS: 36415; 71046; 80053; 83880; 84484; 85025

== ENCOUNTER 2022-10-26 10:06 | Emergency (ER) | payer OTHER ==
[~2022-10-26] VITALS: Ht 170.2 cm; Wt 81.7 kg
[~2022-10-26 10:06] MED LIST changes: +SKYRIZI75 MG/0.81 SQ
[2022-10-26] MEDS ORDERED: Prednisone20 MG PO (10:43)
[2022-10-26] MEDS ORDERED: PERCOCET 10-321 EA13 PO (10:48)
== END 2022-10-26 10:51 | disposition home or self-care (01) ==
LOC: ER 10:06
DX: L25.9 Unspecified contact dermatitis, unspecified cause (principal); I10 Essential (primary) hypertension; E11.9 Type 2 diabetes mellitus without complications; F17.210 Nicotine dependence, cigarettes, uncomplicated
CPT/HCPCS: 99283

== ENCOUNTER 2022-11-24 05:32 | Emergency (ER) | payer OTHER ==
[~2022-11-24] VITALS: Ht 160 cm; Wt 88.5 kg
[~2022-11-24 05:32] MED LIST changes: +PERCOCET 10-321 EA13 PO
[2022-11-24] MEDS ORDERED: METFORMIN HCL500 M3 PO (06:02)
[2022-11-24] MEDS ORDERED: JARDIANCE10 MG PO (06:03)
[2022-11-24 07:11] LABS: BASOPHILS ABSOLUTE AUTO 0.02 K/mm3 (0.00-0.23); BASOPHILS PERCENT AUTO 1 % (0-2); EOSINOPHILS ABSOLUTE AUTO 0.12 K/mm3 (0.00-0.68); EOSINOPHILS PERCENT AUTO 3 % (0-6); Hemoglobin 12.4 g/dL (13.5-17.5); IMMATURE GRAN ABSOLUTE AUTO 0.04 K/mm3 (0.00-0.10); IMMATURE GRAN PERCENT AUTO 1 % (0-1); LYMPHOCYTES PERCENT AUTO 23 % (21-46); MONOCYTES ABSOLUTE AUTO 0.49 K/mm3 (0.16-1.47); MONOCYTES PERCENT AUTO 11 % (4-13); Mean Corpuscular HGB 29.1 pg (26.0-34.0); Mean Corpuscular HGB Conc 33.5 g/dL (31.5-36.5); Mean Corpuscular Volume 87 fL (80-100); Mean Platelet Volume 9.1 fL (9.1-12.4); NEUTROPHILS ABSOLUTE AUTO 2.62 K/mm3 (1.96-9.15); NEUTROPHILS PERCENT AUTO 61 % (41-73); Platelet Count 184 K/mm3 (150-400); RDW Coefficient Variation 14.1 % (11.7-14.2); RDW Standard Deviation 45.1 fL (35.1-46.3); Red Blood Cell Count 4.26 M/mm3 (4.30-5.90); White Blood Cell Count 4.29 K/mm3 (4.00-11.30)
[2022-11-24 07:18] LABS: Source, Urine Clean Catch
[2022-11-24 07:25] LABS: Appearance, Urine Clear (Clear); Bilirubin, Urine Neg (Neg); Blood, Urine 1+ (Neg); Color, Urine Yellow (P-Yellow); Glucose Qualitative, Urine 4+ (Neg); Ketones, Urine Neg (Neg); Leukocyte Esterase, Urine Neg (Neg); Nitrite, Urine Neg (Neg); Protein, Urine 4+ (Neg); Specific Gravity, Urine 1.015 (1.003-1.022); Urobilinogen, Urine NORM (Normal)
[2022-11-24 07:32] LABS: Red Blood Cells, Urine 0-2 /hpf (0-2); Squamous Epithelial Cells Rare /hpf (Few); White Blood Cells, Urine 0-2 /hpf (0-5)
[2022-11-24 07:33] LABS: Bacteria Rare /hpf; Mucus Mod (0-Heavy)
[2022-11-24 07:35] LABS: Alanine Aminotransfer (ALT/SGP 17 U/L (12-78); Albumin, Blood 2.5 g/dL (3.4-5.0); Albumin/Globulin Ratio 0.6 (0.8-1.8); Alk Phos 81 U/L (50-136); Anion Gap 3 mmol/L (6-16); Aspartate Aminotrans (AST/SGOT 14 U/L (12-37); Bilirubin, Direct <0.1 mg/dL (0.0-0.3); Bilirubin, Indirect Unable to Calculate mg/dL (0.1-0.7); Bilirubin, Total 0.3 mg/dL (0.1-1.0); Blood Urea Nitrogen 14 mg/dL (8-24); CO2, Blood 24 mmol/L (21-32); Chloride, Blood 115 mmol/L (98-108); Creatinine, Blood 1.76 mg/dL (0.60-1.20); Globulin, Blood 4.2 g/dL (2.2-4.0); Glomerular Filtration Rate 40 (60-); Glucose, Blood 117 mg/dL (70-99); Potassium, Blood 3.8 mmol/L (3.5-5.5); Sodium, Blood 142 mmol/L (136-145); Total Protein, Blood 6.7 g/dL (6.4-8.2)
[2022-11-24 08:00] VITALS: BP 122/81
[2022-11-24] MEDS ORDERED: Robaxin750 MG PO (09:59)
[2022-11-24] MEDS ORDERED: PRED20 PO (09:59)
== END 2022-11-24 10:06 | disposition home or self-care (01) ==
LOC: ER 05:32
PROVIDERS: Student in an Organized Health Care Education/Training Program
DX: M62.830 Muscle spasm of back (principal); M54.50 Low back pain, unspecified; I12.9 Hypertensive chronic kidney disease with stage 1 through stage 4 chronic kidney disease, or unspecified chronic kidney disease; E11.22 Type 2 diabetes mellitus with diabetic chronic kidney disease; N18.9 Chronic kidney disease, unspecified; E78.5 Hyperlipidemia, unspecified; F17.210 Nicotine dependence, cigarettes, uncomplicated; Z88.1 Allergy status to other antibiotic agents; Z88.0 Allergy status to penicillin; Z88.2 Allergy status to sulfonamides; Z88.6 Allergy status to analgesic agent; Z88.8 Allergy status to other drugs, medicaments and biological substances; Z91.010 Allergy to peanuts; Z79.899 Other long term (current) drug therapy; Z79.82 Long term (current) use of aspirin; Z79.84 Long term (current) use of oral hypoglycemic drugs
CPT/HCPCS: 74177; 80048; 80076; 81001; 83690; 83735; 85025; 93005; 93010; 96374-59; 99284-25; A9270; J1885; J7030; Q9967

== ENCOUNTER → 2022-12-21 | Outpatient (CLI) | payer OTHER ==
[~2022-12-21] MED LIST changes: +JARDIANCE10 MG PO; +METFORMIN HCL500 M3 PO; +Robaxin750 MG PO
== END | disposition home or self-care (01) ==
LOC: LAB SHORT 10:49 → LAB 10:49
DX: L08.0 Pyoderma (principal)
CPT/HCPCS: 87070; 87077; 87147; 87186; 87205

== ENCOUNTER 2023-01-18 09:41 | Emergency (ER) | payer OTHER ==
[~2023-01-18] VITALS: Ht 160 cm; Wt 90.7 kg
[2023-01-18 09:58] VITALS: BP 116/102
[2023-01-18 10:22] LABS: Source, Urine Clean Catch
[2023-01-18 10:25] LABS: Appearance, Urine Turbid (Clear); Bilirubin, Urine Neg (Neg); Blood, Urine 4+ (Neg); Color, Urine Yellow (P-Yellow); Glucose Qualitative, Urine 4+ (Neg); Ketones, Urine Neg (Neg); Leukocyte Esterase, Urine 3+ (Neg); Nitrite, Urine Pos (Neg); Protein, Urine 4+ (Neg); Urobilinogen, Urine NORM (Normal)
[2023-01-18 10:38] LABS: Bacteria Mod /hpf; Mucus Mod (0-Heavy); Squamous Epithelial Cells Rare /hpf (Few); White Blood Cells, Urine 50-100 /hpf (0-5)
[2023-01-18] MEDS ORDERED: LEVO750 PO (11:25)
[2023-01-18] MEDS ORDERED: Pyridium100 MG PO (11:25)
== END 2023-01-18 12:00 | disposition home or self-care (01) ==
LOC: ER 09:41
PROVIDERS: Student in an Organized Health Care Education/Training Program
DX: N39.0 Urinary tract infection, site not specified (principal); Z88.8 Allergy status to other drugs, medicaments and biological substances; Z88.0 Allergy status to penicillin; Z88.2 Allergy status to sulfonamides; Z88.1 Allergy status to other antibiotic agents; Z91.010 Allergy to peanuts; Z79.899 Other long term (current) drug therapy; Z79.82 Long term (current) use of aspirin; Z79.84 Long term (current) use of oral hypoglycemic drugs; Z79.52 Long term (current) use of systemic steroids; F17.210 Nicotine dependence, cigarettes, uncomplicated; I12.9 Hypertensive chronic kidney disease with stage 1 through stage 4 chronic kidney disease, or unspecified chronic kidney disease; E11.22 Type 2 diabetes mellitus with diabetic chronic kidney disease; N18.9 Chronic kidney disease, unspecified; E78.5 Hyperlipidemia, unspecified
CPT/HCPCS: 81001; 96372; 99283-25; A9270; J1885

== ENCOUNTER → 2023-02-11 | Outpatient (CLI) | payer OTHER ==
[~2023-02-11] MED LIST changes: +LEVO750 PO; +Pyridium100 MG PO
== END | disposition home or self-care (01) ==
LOC: LAB 14:32 → LAB SHORT 14:32
DX: L03.311 Cellulitis of abdominal wall (principal)
CPT/HCPCS: 87070; 87075; 87077; 87186; 87205

== ENCOUNTER 2023-02-21 11:03 | Emergency (ER) | payer OTHER ==
[~2023-02-21] VITALS: Ht 160 cm; Wt 82.5 kg
[2023-02-21 11:11] VITALS: BP 153/83
[2023-02-21] MEDS ORDERED: RAYOS PO (11:49)
== END 2023-02-21 11:59 | disposition home or self-care (01) ==
LOC: ER 11:03
DX: R21 Rash and other nonspecific skin eruption (principal); E78.5 Hyperlipidemia, unspecified; I12.9 Hypertensive chronic kidney disease with stage 1 through stage 4 chronic kidney disease, or unspecified chronic kidney disease; E11.22 Type 2 diabetes mellitus with diabetic chronic kidney disease; N18.9 Chronic kidney disease, unspecified; F17.210 Nicotine dependence, cigarettes, uncomplicated; Z88.1 Allergy status to other antibiotic agents; Z88.0 Allergy status to penicillin; Z88.2 Allergy status to sulfonamides; Z88.8 Allergy status to other drugs, medicaments and biological substances; Z88.6 Allergy status to analgesic agent; Z91.010 Allergy to peanuts; Z79.82 Long term (current) use of aspirin; Z79.84 Long term (current) use of oral hypoglycemic drugs; Z79.52 Long term (current) use of systemic steroids; Z79.899 Other long term (current) drug therapy
CPT/HCPCS: 96372; 99282-25; J2930

== ENCOUNTER 2023-04-20 06:41 | Emergency (ER) | payer OTHER ==
[~2023-04-20] VITALS: Ht 160 cm; Wt 86.2 kg
[~2023-04-20 06:41] MED LIST changes: +RAYOS PO
[2023-04-20] MEDS ORDERED: AMLODIPINE BESY10 MG PO (07:09)
[2023-04-20] MEDS ORDERED: METO50ER PO (07:11)
[2023-04-20] MEDS ORDERED: CALCIUM PO (07:19)
[2023-04-20] MEDS ORDERED: [UNRECOGNIZED DRUG - OTHER] SQ (07:20)
[2023-04-20] MEDS ORDERED: JARDIANCE10 MG PO (07:21)
[2023-04-20] MEDS ORDERED: LEVO750 PO (07:22)
[2023-04-20 08:00] LABS: BASOPHILS ABSOLUTE AUTO 0.02 K/mm3 (0.00-0.23); BASOPHILS PERCENT AUTO 0 % (0-2); EOSINOPHILS ABSOLUTE AUTO 0.07 K/mm3 (0.00-0.68); EOSINOPHILS PERCENT AUTO 1 % (0-6); Hematocrit 37.9 % (37.0-53.0); Hemoglobin 12.5 g/dL (13.5-17.5); IMMATURE GRAN ABSOLUTE AUTO 0.04 K/mm3 (0.00-0.10); IMMATURE GRAN PERCENT AUTO 1 % (0-1); LYMPHOCYTES ABSOLUTE AUTO 1.24 K/mm3 (0.84-5.20); LYMPHOCYTES PERCENT AUTO 22 % (21-46); MONOCYTES PERCENT AUTO 13 % (4-13); Mean Corpuscular HGB 29.1 pg (26.0-34.0); Mean Corpuscular Volume 88 fL (80-100); Mean Platelet Volume 9.5 fL (9.1-12.4); NEUTROPHILS ABSOLUTE AUTO 3.55 K/mm3 (1.96-9.15); NEUTROPHILS PERCENT AUTO 63 % (41-73); Platelet Count 199 K/mm3 (150-400); RDW Coefficient Variation 15.1 % (11.7-14.2); RDW Standard Deviation 48.3 fL (35.1-46.3); White Blood Cell Count 5.62 K/mm3 (4.00-11.30)
[2023-04-20 08:04] LABS: Albumin, Blood 2.8 g/dL (3.4-5.0); Albumin/Globulin Ratio 0.8 (0.8-1.8); Bilirubin, Total 0.5 mg/dL (0.1-1.0); Bun/Creatinine Ratio 12.1 (12.0-20.0); Calcium, Blood 8.3 mg/dL (8.5-10.1); Creatinine, Blood 1.74 mg/dL (0.60-1.20); Globulin, Blood 3.7 g/dL (2.2-4.0); Total Protein, Blood 6.5 g/dL (6.4-8.2)
[2023-04-20 09:12] LABS: Source, Urine Clean Catch
[2023-04-20 09:14] LABS: Bilirubin, Urine Neg (Neg); Blood, Urine 2+ (Neg); Glucose Qualitative, Urine 4+ (Neg); Ketones, Urine Neg (Neg); Leukocyte Esterase, Urine 2+ (Neg); Nitrite, Urine Pos (Neg); Protein, Urine 3+ (Neg); Specific Gravity, Urine 1.015 (1.003-1.022); Urobilinogen, Urine NORM (Normal)
[2023-04-20 10:00] VITALS: BP 130/92
[2023-04-20 10:17] LABS: Appearance, Urine Hazy (Clear); Color, Urine Yellow (P-Yellow)
[2023-04-20 10:18] LABS: Bacteria Many /hpf; Squamous Epithelial Cells Not Seen /hpf (Few); White Blood Cells, Urine 25-50 /hpf (0-5)
[2023-04-20] MEDS ORDERED: SULTRIDS PO (13:07)
== END 2023-04-20 10:13 | disposition home or self-care (01) ==
LOC: ER 06:41
PROVIDERS: Student in an Organized Health Care Education/Training Program
DX: R07.89 Other chest pain (principal); R39.15 Urgency of urination; R30.0 Dysuria; R60.0 Localized edema; R06.89 Other abnormalities of breathing; F17.210 Nicotine dependence, cigarettes, uncomplicated; I10 Essential (primary) hypertension; E11.9 Type 2 diabetes mellitus without complications; E78.5 Hyperlipidemia, unspecified; Z88.0 Allergy status to penicillin; Z88.1 Allergy status to other antibiotic agents; Z88.2 Allergy status to sulfonamides; Z88.6 Allergy status to analgesic agent; Z88.8 Allergy status to other drugs, medicaments and biological substances; Z91.010 Allergy to peanuts; Z79.82 Long term (current) use of aspirin; Z79.84 Long term (current) use of oral hypoglycemic drugs; Z79.52 Long term (current) use of systemic steroids; Z79.899 Other long term (current) drug therapy
CPT/HCPCS: 71046; 80053; 81001; 83735; 83880; 84484; 85025; 87077; 87086; 87186; 93005; 93010; 96374; 99285-25; A9270; J2405

== ENCOUNTER 2023-05-12 12:49 | Emergency (ER) | payer OTHER ==
[~2023-05-12] VITALS: Ht 160 cm; Wt 81.7 kg
[~2023-05-12 12:49] MED LIST changes: +AMLODIPINE BESY10 MG PO; +CALCIUM PO; +[UNRECOGNIZED DRUG - OTHER] SQ
[2023-05-12 13:01] VITALS: BP 125/79
[2023-05-12 16:28] LABS: BASOPHILS ABSOLUTE AUTO 0.05 K/mm3 (0.00-0.23); BASOPHILS PERCENT AUTO 1 % (0-2); EOSINOPHILS ABSOLUTE AUTO 0.21 K/mm3 (0.00-0.68); EOSINOPHILS PERCENT AUTO 3 % (0-6); Hematocrit 40.9 % (37.0-53.0); Hemoglobin 13.4 g/dL (13.5-17.5); IMMATURE GRAN ABSOLUTE AUTO 0.02 K/mm3 (0.00-0.10); IMMATURE GRAN PERCENT AUTO 0 % (0-1); LYMPHOCYTES ABSOLUTE AUTO 1.38 K/mm3 (0.84-5.20); LYMPHOCYTES PERCENT AUTO 17 % (21-46); MONOCYTES ABSOLUTE AUTO 0.86 K/mm3 (0.16-1.47); MONOCYTES PERCENT AUTO 10 % (4-13); Mean Corpuscular HGB 28.9 pg (26.0-34.0); Mean Corpuscular HGB Conc 32.8 g/dL (31.5-36.5); Mean Corpuscular Volume 88 fL (80-100); Mean Platelet Volume 9.2 fL (9.1-12.4); NEUTROPHILS ABSOLUTE AUTO 5.81 K/mm3 (1.96-9.15); NEUTROPHILS PERCENT AUTO 70 % (41-73); Platelet Count 201 K/mm3 (150-400); RDW Coefficient Variation 14.2 % (11.7-14.2); RDW Standard Deviation 45.6 fL (35.1-46.3); Red Blood Cell Count 4.64 M/mm3 (4.30-5.90); White Blood Cell Count 8.33 K/mm3 (4.00-11.30)
[2023-05-12 16:54] LABS: Albumin, Blood 3.4 g/dL (3.4-5.0); Albumin/Globulin Ratio 0.8 (0.8-1.8); Bilirubin, Total 0.3 mg/dL (0.1-1.0); Bun/Creatinine Ratio 8.5 (12.0-20.0); Calcium, Blood 9.1 mg/dL (8.5-10.1); Creatinine, Blood 1.88 mg/dL (0.60-1.20); Globulin, Blood 4.1 g/dL (2.2-4.0); Potassium, Blood 4.3 mmol/L (3.5-5.5); Total Protein, Blood 7.5 g/dL (6.4-8.2)
== END 2023-05-12 17:24 | disposition home or self-care (01) ==
LOC: ER 12:49
PROVIDERS: Student in an Organized Health Care Education/Training Program
DX: M25.511 Pain in right shoulder (principal); I12.9 Hypertensive chronic kidney disease with stage 1 through stage 4 chronic kidney disease, or unspecified chronic kidney disease; E11.22 Type 2 diabetes mellitus with diabetic chronic kidney disease; N18.9 Chronic kidney disease, unspecified; E78.5 Hyperlipidemia, unspecified; F17.210 Nicotine dependence, cigarettes, uncomplicated; Z88.1 Allergy status to other antibiotic agents; Z88.0 Allergy status to penicillin; Z88.2 Allergy status to sulfonamides; Z88.8 Allergy status to other drugs, medicaments and biological substances; Z88.6 Allergy status to analgesic agent; Z91.010 Allergy to peanuts; Z79.82 Long term (current) use of aspirin; Z79.84 Long term (current) use of oral hypoglycemic drugs; Z79.52 Long term (current) use of systemic steroids; Z79.899 Other long term (current) drug therapy; M19.011 Primary osteoarthritis, right shoulder
CPT/HCPCS: 71046; 73030; 80053; 83690; 84484; 85025; 93005; 93010; 99284-25; A9270

== ENCOUNTER 2024-01-30 21:14 | Emergency (ER) | payer OTHER ==
[~2024-01-30] VITALS: Ht 167.6 cm; Wt 81.7 kg
[~2024-01-30 21:14] MED LIST changes: +CODACE30 PO
[2024-01-30 21:38] LABS: BASOPHILS ABSOLUTE AUTO 0.02 K/mm3 (0.00-0.23); BASOPHILS PERCENT AUTO 0 % (0-2); EOSINOPHILS ABSOLUTE AUTO 0.25 K/mm3 (0.00-0.68); EOSINOPHILS PERCENT AUTO 4 % (0-6); Hematocrit 32.3 % (37.0-53.0); Hemoglobin 10.5 g/dL (13.5-17.5); IMMATURE GRAN ABSOLUTE AUTO 0.02 K/mm3 (0.00-0.10); IMMATURE GRAN PERCENT AUTO 0 % (0-1); LYMPHOCYTES ABSOLUTE AUTO 1.12 K/mm3 (0.84-5.20); LYMPHOCYTES PERCENT AUTO 16 % (21-46); MONOCYTES ABSOLUTE AUTO 0.68 K/mm3 (0.16-1.47); MONOCYTES PERCENT AUTO 10 % (4-13); Mean Corpuscular HGB 28.5 pg (26.0-34.0); Mean Corpuscular HGB Conc 32.5 g/dL (31.5-36.5); Mean Corpuscular Volume 88 fL (80-100); Mean Platelet Volume 8.9 fL (9.1-12.4); NEUTROPHILS ABSOLUTE AUTO 4.73 K/mm3 (1.96-9.15); NEUTROPHILS PERCENT AUTO 69 % (41-73); Platelet Count 217 K/mm3 (150-400); RDW Coefficient Variation 14.9 % (11.7-14.2); RDW Standard Deviation 48.2 fL (35.1-46.3); Red Blood Cell Count 3.69 M/mm3 (4.30-5.90); White Blood Cell Count 6.82 K/mm3 (4.00-11.30)
[2024-01-30 21:56] LABS: Albumin, Blood 2.6 g/dL (3.4-5.0); Albumin/Globulin Ratio 0.6 (0.8-1.8); Bilirubin, Total 0.2 mg/dL (0.1-1.0); Bun/Creatinine Ratio 12.1 (12.0-20.0); Calcium, Blood 8.2 mg/dL (8.5-10.1); Creatinine, Blood 2.23 mg/dL (0.60-1.20); Globulin, Blood 4.2 g/dL (2.2-4.0); Total Protein, Blood 6.8 g/dL (6.4-8.2)
[2024-01-30] MEDS ORDERED: NS 500 ML IV SCH (23:05)
[2024-01-31 02:15] VITALS: BP 149/85
== END 2024-01-31 02:24 | disposition home or self-care (01) ==
LOC: ER 21:14
PROVIDERS: Nurse Practitioner
DX: R07.9 Chest pain, unspecified (principal); N28.1 Cyst of kidney, acquired; R91.1 Solitary pulmonary nodule; E78.5 Hyperlipidemia, unspecified; I12.9 Hypertensive chronic kidney disease with stage 1 through stage 4 chronic kidney disease, or unspecified chronic kidney disease; N18.9 Chronic kidney disease, unspecified; E11.22 Type 2 diabetes mellitus with diabetic chronic kidney disease; Z88.8 Allergy status to other drugs, medicaments and biological substances; Z88.5 Allergy status to narcotic agent; Z88.2 Allergy status to sulfonamides; Z88.1 Allergy status to other antibiotic agents; Z91.010 Allergy to peanuts; Z79.899 Other long term (current) drug therapy; Z79.82 Long term (current) use of aspirin; Z79.84 Long term (current) use of oral hypoglycemic drugs; F17.210 Nicotine dependence, cigarettes, uncomplicated
CPT/HCPCS: 71046; 71260; 80053; 84484; 85025; 93005; 93010; 96360-59; 99285-25; J7030; Q9967

== ENCOUNTER 2024-04-26 19:07 | Emergency (ER) | payer OTHER ==
[~2024-04-26] VITALS: Ht 160 cm; Wt 81.7 kg
[2024-04-26 20:46] VITALS: BP 128/66
== END 2024-04-26 20:47 | disposition home or self-care (01) ==
LOC: ER 19:07
DX: R04.0 Epistaxis (principal); E78.5 Hyperlipidemia, unspecified; E11.22 Type 2 diabetes mellitus with diabetic chronic kidney disease; N18.9 Chronic kidney disease, unspecified; I12.9 Hypertensive chronic kidney disease with stage 1 through stage 4 chronic kidney disease, or unspecified chronic kidney disease; F17.210 Nicotine dependence, cigarettes, uncomplicated; Z79.84 Long term (current) use of oral hypoglycemic drugs; Z79.82 Long term (current) use of aspirin; Z79.899 Other long term (current) drug therapy; Z88.1 Allergy status to other antibiotic agents; Z88.2 Allergy status to sulfonamides; Z88.0 Allergy status to penicillin; Z88.6 Allergy status to analgesic agent; Z91.010 Allergy to peanuts; Z88.8 Allergy status to other drugs, medicaments and biological substances
CPT/HCPCS: 99283

== ENCOUNTER 2024-06-24 06:54 | Emergency (ER) | payer OTHER ==
[~2024-06-24] VITALS: Ht 167.6 cm; Wt 83.9 kg
[2024-06-24 07:47] LABS: BASOPHILS ABSOLUTE AUTO 0.04 K/mm3 (0.00-0.23); BASOPHILS PERCENT AUTO 1 % (0-2); EOSINOPHILS ABSOLUTE AUTO 0.21 K/mm3 (0.00-0.68); EOSINOPHILS PERCENT AUTO 3 % (0-6); Hematocrit 36.4 % (37.0-53.0); Hemoglobin 12.2 g/dL (13.5-17.5); IMMATURE GRAN ABSOLUTE AUTO 0.02 K/mm3 (0.00-0.10); IMMATURE GRAN PERCENT AUTO 0 % (0-1); LYMPHOCYTES ABSOLUTE AUTO 1.44 K/mm3 (0.84-5.20); LYMPHOCYTES PERCENT AUTO 20 % (21-46); MONOCYTES ABSOLUTE AUTO 0.58 K/mm3 (0.16-1.47); MONOCYTES PERCENT AUTO 8 % (4-13); Mean Corpuscular HGB 28.2 pg (26.0-34.0); Mean Corpuscular HGB Conc 33.5 g/dL (31.5-36.5); Mean Corpuscular Volume 84 fL (80-100); Mean Platelet Volume 8.6 fL (9.1-12.4); NEUTROPHILS ABSOLUTE AUTO 5.04 K/mm3 (1.96-9.15); NEUTROPHILS PERCENT AUTO 69 % (41-73); Platelet Count 194 K/mm3 (150-400); RDW Coefficient Variation 15.3 % (11.7-14.2); RDW Standard Deviation 46.8 fL (35.1-46.3); Red Blood Cell Count 4.33 M/mm3 (4.30-5.90); White Blood Cell Count 7.33 K/mm3 (4.00-11.30)
[2024-06-24] MEDS ORDERED: Methocarbamol 500 MG Tab PO ONE (08:00)
[2024-06-24] MEDS ORDERED: Methyl Salicylate/Menth/Camph 57 GM TUBE TOP ONE (08:00)
[2024-06-24] MEDS ORDERED: Ketorolac Tromethamine 30mg Vial IV ONE (08:00)
[2024-06-24 08:07] LABS: Albumin/Globulin Ratio 0.8 (0.8-1.8); Bilirubin, Total 0.4 mg/dL (0.1-1.0); Bun/Creatinine Ratio 9.7 (12.0-20.0); Calcium, Blood 8.5 mg/dL (8.5-10.1); Creatinine, Blood 2.17 mg/dL (0.60-1.20); Globulin, Blood 3.9 g/dL (2.2-4.0); Magnesium, Blood 2.1 mg/dL (1.6-2.4); Potassium, Blood 4.1 mmol/L (3.5-5.5); Total Protein, Blood 6.9 g/dL (6.4-8.2)
[2024-06-24 11:00] VITALS: BP 164/97
[2024-06-24] MEDS ORDERED: Voltaren100 GM TOP (11:26)
[2024-06-24] MEDS ORDERED: Robaxin750 MG PO (11:26)
== END 2024-06-24 11:34 | disposition home or self-care (01) ==
LOC: ER 06:54
PROVIDERS: Student in an Organized Health Care Education/Training Program
DX: M62.830 Muscle spasm of back (principal); R07.89 Other chest pain; I12.9 Hypertensive chronic kidney disease with stage 1 through stage 4 chronic kidney disease, or unspecified chronic kidney disease; N18.32 Chronic kidney disease, stage 3b; R79.89 Other specified abnormal findings of blood chemistry; F17.210 Nicotine dependence, cigarettes, uncomplicated; E11.22 Type 2 diabetes mellitus with diabetic chronic kidney disease; E78.5 Hyperlipidemia, unspecified; Z79.84 Long term (current) use of oral hypoglycemic drugs; Z79.82 Long term (current) use of aspirin; Z88.0 Allergy status to penicillin; Z88.1 Allergy status to other antibiotic agents; Z88.2 Allergy status to sulfonamides; Z91.010 Allergy to peanuts; Z88.8 Allergy status to other drugs, medicaments and biological substances
CPT/HCPCS: 71260; 80053; 83735; 84484; 85025; 85379; 93005; 93010; 96374-59; 99285-25; A9270; J1885; Q9967

== ENCOUNTER → 2024-10-26 | Outpatient (CLI) | payer OTHER ==
[~2024-10-26] MED LIST changes: +Voltaren100 GM TOP
[2024-10-26 15:13] LABS: BASOPHILS ABSOLUTE AUTO 0.04 K/mm3 (0.00-0.23); BASOPHILS PERCENT AUTO 1 % (0-2); EOSINOPHILS ABSOLUTE AUTO 0.14 K/mm3 (0.00-0.68); EOSINOPHILS PERCENT AUTO 2 % (0-6); Hematocrit 32.2 % (37.0-53.0); IMMATURE GRAN ABSOLUTE AUTO 0.02 K/mm3 (0.00-0.10); IMMATURE GRAN PERCENT AUTO 0 % (0-1); LYMPHOCYTES ABSOLUTE AUTO 1.32 K/mm3 (0.84-5.20); LYMPHOCYTES PERCENT AUTO 17 % (21-46); MONOCYTES ABSOLUTE AUTO 0.75 K/mm3 (0.16-1.47); MONOCYTES PERCENT AUTO 10 % (4-13); Mean Corpuscular HGB 28.6 pg (26.0-34.0); Mean Corpuscular HGB Conc 34.2 g/dL (31.5-36.5); Mean Corpuscular Volume 84 fL (80-100); Mean Platelet Volume 9.1 fL (9.1-12.4); NEUTROPHILS PERCENT AUTO 71 % (41-73); Platelet Count 200 K/mm3 (150-400); RDW Coefficient Variation 14.9 % (11.7-14.2); RDW Standard Deviation 45.3 fL (35.1-46.3); Red Blood Cell Count 3.84 M/mm3 (4.30-5.90); White Blood Cell Count 7.77 K/mm3 (4.00-11.30)
[2024-10-26 15:28] LABS: Albumin, Blood 2.9 g/dL (3.4-5.0); Albumin/Globulin Ratio 0.7 (0.8-1.8); Bilirubin, Total 0.2 mg/dL (0.1-1.0); Bun/Creatinine Ratio 11.9 (12.0-20.0); Calcium, Blood 8.7 mg/dL (8.5-10.1); Creatinine, Blood 3.36 mg/dL (0.60-1.20); Globulin, Blood 4.2 g/dL (2.2-4.0); Potassium, Blood 4.2 mmol/L (3.5-5.5); Total Protein, Blood 7.1 g/dL (6.4-8.2)
== END | disposition home or self-care (01) ==
LOC: LAB 15:08 → LAB SHORT 15:08
PROVIDERS: Chiropractor
DX: R07.9 Chest pain, unspecified (principal)
CPT/HCPCS: 80053; 84484; 85025

== ENCOUNTER 2025-02-19 02:49 | Emergency (ER) | payer OTHER ==
[~2025-02-19] VITALS: Ht 160 cm; Wt 76.7 kg
[2025-02-19] MEDS ORDERED: MUPIROCIN2210 TP (03:51)
[2025-02-19] MEDS ORDERED: Keflex250 MG PO (05:07)
[2025-02-19 06:00] VITALS: BP 144/80
[2025-02-19] MEDS ORDERED: Dexamethasone Sod Phos 10 MG/ML 1ML VIAL IM ONE (06:00)
[2025-02-19] MEDS ORDERED: Deltasone 10 mg10 MG PO (06:19)
== END 2025-02-19 06:20 | disposition home or self-care (01) ==
LOC: ER 02:49
DX: L30.9 Dermatitis, unspecified (principal); E11.22 Type 2 diabetes mellitus with diabetic chronic kidney disease; I12.9 Hypertensive chronic kidney disease with stage 1 through stage 4 chronic kidney disease, or unspecified chronic kidney disease; N18.9 Chronic kidney disease, unspecified; F17.210 Nicotine dependence, cigarettes, uncomplicated; Z88.0 Allergy status to penicillin; Z88.1 Allergy status to other antibiotic agents; Z88.8 Allergy status to other drugs, medicaments and biological substances; Z91.010 Allergy to peanuts; Z79.82 Long term (current) use of aspirin; Z79.899 Other long term (current) drug therapy
CPT/HCPCS: 96372; 99282-25; J1100

== ENCOUNTER 2025-03-18 03:11 | Inpatient (IN) | payer OTHER ==
[~2025-03-18] VITALS: Ht 160 cm; Wt 79.0 kg
[~2025-03-18 03:11] MED LIST changes: +Deltasone 10 mg10 MG PO; +Keflex250 MG PO; +MUPIROCIN2210 TP
[2025-03-18] MEDS ORDERED: Ketorolac Tromethamine 30mg Vial IV ONE (03:30)
[2025-03-18] MEDS ORDERED: Ipratropium/Albuterol SulF 2.5-0.5MG/3 ML Amp INH ONE (03:30)
[2025-03-18 03:55] LABS: Hematocrit 33.6 % (37.0-53.0); Hemoglobin 10.8 g/dL (13.5-17.5); Mean Corpuscular HGB Conc 32.1 g/dL (31.5-36.5); Mean Corpuscular Volume 88 fL (80-100); NRBC ABSOLUTE 0.00 K/mm3 (0.00-0.02); NRBC Auto 0.0 /100 WBC (0.0-0.2); Platelet Count 182 K/mm3 (150-400); RDW Coefficient Variation 16.2 % (11.7-14.2); RDW Standard Deviation 52.4 fL (35.1-46.3)
[2025-03-18 04:13] LABS: Alanine Aminotransfer (ALT/SGP 11.0 U/L (12-78); Albumin, Blood 2.1 g/dL (3.4-5.0); Albumin/Globulin Ratio 0.4 (0.8-1.8); Anion Gap 13.0 mmol/L (3-11); Aspartate Aminotrans (AST/SGOT 9.0 U/L (12-37); Bilirubin, Total 0.4 mg/dL (0.1-1.0); Blood Urea Nitrogen 71.0 mg/dL (8-24); CO2, Blood 19.0 mmol/L (21-32); Calcium, Blood 8.5 mg/dL (8.5-10.1); Chloride, Blood 112.0 mmol/L (98-108); Creatinine, Blood 5.47 mg/dL (0.60-1.20); Globulin, Blood 5.0 g/dL (2.2-4.0); Glucose, Blood 90.0 mg/dL (70-99); Magnesium, Blood 2.0 mg/dL (1.6-2.4); Potassium, Blood 4.5 mmol/L (3.5-5.5); Sodium, Blood 139.0 mmol/L (136-145); Total Protein, Blood 7.1 g/dL (6.4-8.2)
[2025-03-18 04:21] LABS: BAND PERCENT MAN 29 % (0-8); BASOPHILS ABSOLUTE MAN 0.00 K/mm3 (0.00-0.23); BASOPHILS PERCENT MAN 0 % (0-2); EOSINOPHILS ABSOLUTE MAN 0.05 K/mm3 (0.00-0.68); EOSINOPHILS PERCENT MAN 1 % (0-6); LYMPHOCYTES ABSOLUTE MAN 0.52 K/mm3 (0.84-5.20); LYMPHOCYTES PERCENT MAN 10 % (21-46); MONOCYTES ABSOLUTE MAN 0.00 K/mm3 (0.16-1.47); MONOCYTES PERCENT MAN 0 % (4-13); MYELOCYTE ABSOLUTE MAN 0.10 K/mm3 (0.00-0.00); MYELOCYTE PERCENT MAN 2 % (0-0); NEUTROPHILS ABSOLUTE MAN 4.55 K/mm3 (1.96-9.15); SEG NEUTROPHILS PERCENT MAN 58 % (41-73)
[2025-03-18] MEDS ORDERED: NS 1,000 ML IV SCH (04:35)
[2025-03-18] MEDS ORDERED: HYDROmorphone HCl/Pf 1MG SYR IV ONE (04:35)
[2025-03-18] MEDS ORDERED: LevoFLOXacin 750 MG/D5W 150ML 150 ML IV ONE (04:35)
[2025-03-18] MEDS ORDERED: Naloxone HCl 0.4MG / ML 1ML Vial IV PRN (05:10)
[2025-03-18] MEDS ORDERED: HYDROmorphone HCl/Pf 1MG SYR IV PRN (05:10)
[2025-03-18] MEDS ORDERED: Sodium Bicarb 8.4% Inj 150 MEQ in Dextrose 5% 1,000 ML IV ONE (05:15)
[2025-03-18 06:41] LABS: pH Blood Venous 7.40 (7.34-7.37)
[2025-03-18] MEDS ORDERED: Albuterol 2.5 MG/3 ML VIAL INH PRN (07:20)
[2025-03-18] MEDS ORDERED: Lactobacil 2-S.Thermo-Bifido 1 1 Cap PO SCH (09:00)
[2025-03-18] MEDS ORDERED: Heparin Sodium,Porcine 5,000 UNIT/0.5 ML SDV SC SCH (09:00)
[2025-03-18] MEDS ORDERED: Ondansetron HCl 2 MG / ML 2ML Vial IV PRN ×2 (11:30)
[2025-03-18 14:00] LABS: Anion Gap 13.0 mmol/L (3-11); Blood Urea Nitrogen 75.0 mg/dL (8-24); CO2, Blood 20.0 mmol/L (21-32); Calcium, Blood 7.8 mg/dL (8.5-10.1); Chloride, Blood 110.0 mmol/L (98-108); Creatinine, Blood 5.12 mg/dL (0.60-1.20); Glucose, Blood 201.0 mg/dL (70-99); Potassium, Blood 4.7 mmol/L (3.5-5.5); Sodium, Blood 138.0 mmol/L (136-145)
[2025-03-18] MEDS ORDERED: TACROLIMUS (14:34)
[2025-03-18] MEDS ORDERED: TIMO.25OPS BOTHEYES (14:35)
--- NOTE | 2025-03-18 17:14 | NUR ---
NOTE PT ARRIVED FROM ER. TALKING/RAMBELING UNORIENTED ANSWERS TO QUESTIONS. LUNGS COAURSE T/O. HE HAS A DEEP, CONGESTED COUGH WITH ANY ACTIVITY. CALLED MD TO REQUEST A DIET. BICARB GTT INFUSING AT 100ML/HR. RIGHT AC IV PATENT. LAB IS HAVING A DIFFICULT TIME DRAWING BLOOD FOR SCHEDULED LAB. PT NEEDING 1 ASSIST TO STAND AT THE BEDSIDE AND US THE URINAL. FOUND HIS BOXERS WITH OLD DRIED STOOL. CHANGED OUT FOR PULL UP. WHILE STANDING PT NEEDED OXYGEN INCREASED FROM 6L TO 10L VIA HIGH FLOW N/C. HEART RATE INCREASED FROM 80 TO 110BPM WITH STANDING. PT ENCOURAGED TO DRINK WATER. 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 CARE ONGOING.
[2025-03-18 19:45] VITALS: BP 125/71
[2025-03-18] MEDS ORDERED: Insulin Human Lispro 100 Units/ML 3ML Syringe SC SCH (21:00)
[2025-03-18 23:32] VITALS: BP 143/65
[2025-03-19] VITALS (8 sets, daily range): BP systolic 129–157; BP diastolic 70–99
[2025-03-19 04:38] LABS: Hematocrit 26.8 % (37.0-53.0); Hemoglobin 8.5 g/dL (13.5-17.5); Mean Corpuscular HGB Conc 31.7 g/dL (31.5-36.5); Mean Corpuscular Volume 89 fL (80-100); NRBC ABSOLUTE 0.00 K/mm3 (0.00-0.02); NRBC Auto 0.0 /100 WBC (0.0-0.2); Platelet Count 159 K/mm3 (150-400); RDW Coefficient Variation 16.5 % (11.7-14.2); RDW Standard Deviation 53.9 fL (35.1-46.3)
[2025-03-19 05:09] LABS: BAND PERCENT MAN 15 % (0-8); BASOPHILS ABSOLUTE MAN 0.00 K/mm3 (0.00-0.23); BASOPHILS PERCENT MAN 0 % (0-2); EOSINOPHILS ABSOLUTE MAN 0.17 K/mm3 (0.00-0.68); EOSINOPHILS PERCENT MAN 4 % (0-6); LYMPHOCYTES ABSOLUTE MAN 0.57 K/mm3 (0.84-5.20); LYMPHOCYTES PERCENT MAN 13 % (21-46); MONOCYTES ABSOLUTE MAN 0.22 K/mm3 (0.16-1.47); MONOCYTES PERCENT MAN 5 % (4-13); NEUTROPHILS ABSOLUTE MAN 3.45 K/mm3 (1.96-9.15); SEG NEUTROPHILS PERCENT MAN 63 % (41-73)
--- NOTE | 2025-03-19 05:12 | NUR ---
SHIFT SUMMARY PT ALERT AND ORIENTED X 2-3. PT FORGETFUL AT TIMES AND WILL RAMBLE AND MAKE STATEMENTS THAT DON'T MAKE SENSE. PT EDUCATED ON WHY HE IS HERE AND THE PLAN OF CARE. PT VOICES FRUSTRATION. PT ON 6-10L VIA OXYMIZER MASK SINCE PT IS BREATHING THROUGH MOUTH TO KEEP O2 SATS ABOVE 90%. PT UP WITH 1 ASSIST TO USE URINAL. PT SR IN 80S AND DENIES CP/PRESSURE. PT C/O OF PLEURTIC PAIN WHEN COUGHING. PRN DILAUDID GIVEN-SEE MAR. PT HAS BED ALARM ON AND CALL VALLEJO WITHIN REACH. PT ABLE TO MAKE NEEDS KNOWN. VSS.
[2025-03-19 05:13] LABS: Alanine Aminotransfer (ALT/SGP 8.0 U/L (12-78); Albumin, Blood 1.6 g/dL (3.4-5.0); Albumin/Globulin Ratio 0.4 (0.8-1.8); Anion Gap 9.0 mmol/L (3-11); Aspartate Aminotrans (AST/SGOT 6.0 U/L (12-37); Bilirubin, Total 0.3 mg/dL (0.1-1.0); Blood Urea Nitrogen 71.0 mg/dL (8-24); CO2, Blood 23.0 mmol/L (21-32); Calcium, Blood 8.4 mg/dL (8.5-10.1); Chloride, Blood 111.0 mmol/L (98-108); Creatinine, Blood 4.92 mg/dL (0.60-1.20); Globulin, Blood 4.4 g/dL (2.2-4.0); Glucose, Blood 73.0 mg/dL (70-99); Potassium, Blood 4.3 mmol/L (3.5-5.5); Sodium, Blood 139.0 mmol/L (136-145); Total Protein, Blood 6.0 g/dL (6.4-8.2)
[2025-03-19] MEDS ORDERED: Timolol 0.25% Opth Soln 5 ml BOTHEYES SCH (09:00)
--- NOTE | 2025-03-19 12:50 | NUR ---
NURSE NOTE: PT DESATED TO HIGH 70'S-MID 80'S WITH SLOW RECOVERY. RT TAB CALLED TO BEDSIDE FOR BREATHING TREATMENT AT 1250. SAT IMPROVED TO <90%
--- NOTE | 2025-03-19 17:37 | NUR ---
SHIFT SUMMARY: PT A/O X2-3, SELF AND PLACE CONSISTENTLY AND CIRCUMSTANCE OCCASIONALLY. PT IS CONFUSED AND FORGETFUL, BED ALARM ON, FREQUENTLY ORIENTED TO CARE PLAN AND SURROUNDINGS. PT ENDORSES FRUSTRATION AND STATES "I'M A GRUMPY MAN AND NOTHING YOU DO WILL CHANGE THAT." FREQUENT ROUNDING, THERAPEUTIC CONVERSATION, AND REDIRECTION HAVE BEEN SUCCESSFUL IN MANAGING BEHAVIORS. 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 ON 7-10L O2 THIS SHIFT, NC W/HUMIDIFIER WHEN EATING, MASK PREFERRED DUE TO MOUTH BREATHING, O2 SATS DIPPED TO 70'S-MID 80'S AND WERE SLOW TO RECOVER, RT CALLED TO BEDSIDE FOR A BREATHING TREATMENT AND O2 SATS MAINTAINED >90%. PT STATED, "MY FOOD DOESN'T FEEL LIKE IT WENT ALL THE WAY DOWN", DIET CHANGED TO FULL LIQUID PENDING A SPEECH THERAPY EVALUATION FOR A SWALLOW STUDY, ORDERED FOR 03/20. DOPPLER STUDY OF LEFT LEG COMPLETED AT BEDSIDE, RESULTS PENDING. 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 PT DENIES CHEST PAIN OR PRESSURE, ENDORSES PLEURITIC PAIN WITH COUGHING.
--- NOTE | 2025-03-19 18:38 | NUR ---
NURSE NOTE: PT ENDORSED TENDERNESS ON HIS SACRUM, "MY ASS HURTS", Q2 TURNING THIS SHIFT.
[2025-03-19] MEDS ORDERED: Oxymetazoline 0.05% Nasal Relief Spray 15mL BTL SCH (21:00)
--- NOTE | 2025-03-20 01:02 | NUR ---
PT DESATING TO 86% ON 15L OXYMIZER MASK. PT EDUCATED TO DEEP BREATH AND COUGH BUT UNSUCESSFUL IN BRINGING SATS UP. JELANI RT NOTIFIED AND COMING TO ASSESS PATIENT. MD SUDARSHAN MADE AWARE.
[2025-03-20 03:04] VITALS: BP 146/98
[2025-03-20 04:22] LABS: Hematocrit 25.7 % (37.0-53.0); Hemoglobin 8.1 g/dL (13.5-17.5); Mean Corpuscular HGB Conc 31.5 g/dL (31.5-36.5); Mean Corpuscular Volume 90 fL (80-100); NRBC ABSOLUTE 0.00 K/mm3 (0.00-0.02); NRBC Auto 0.0 /100 WBC (0.0-0.2); Platelet Count 161 K/mm3 (150-400); RDW Coefficient Variation 16.7 % (11.7-14.2); RDW Standard Deviation 55.5 fL (35.1-46.3)
--- NOTE | 2025-03-20 04:39 | NUR ---
SHIFT SUMMARY PT ALERT AND ORIENTED X 2-3. PT IS FOREGTFUL AND FREQUENTLY FOREGETS WHAT HE ASKED FOR. PT IS IN A MORE PLEASENT MOOD TONIGHT. PT HAD EPISODE OF SOB/WHEEZING REQUIRING PRN BREATHING TREATMENT. PT ALSO HAD TO BE INCREASED TO 15L ON OXYMIZER. PT WAS ABLE TO CLEAR SOME SECRETIONS WITH COUGHING AND ABLE TO DECREASE DOWN TO 11L. CURRENTLY ON 9L NC. PT WITH ADEQUATE URINE OUTPUT BUT DOES VOID IN SMALL, FREQUENT AMOUNTS. PT C/O OF CHEST PRESSURE AT START OF SHIFT, TROPONIN NEGATIVE AND CHEST PRESSURE IMPROVED. PT WITH PRODUCTIVE COUGH. PT GIVEN NASAL SPRAY TO HELP WITH NASAL CONGESTION. PT GIVEN TYLENOL FOR HEADACHE. CALL VALLEJO WITHIN REACH AND PT ABLE TO MAKE NEEDS KNOWN.
[2025-03-20 04:40] LABS: Alanine Aminotransfer (ALT/SGP 11.0 U/L (12-78); Albumin, Blood 1.5 g/dL (3.4-5.0); Albumin/Globulin Ratio 0.4 (0.8-1.8); Anion Gap 12.0 mmol/L (3-11); Aspartate Aminotrans (AST/SGOT 11.0 U/L (12-37); Bilirubin, Total 0.2 mg/dL (0.1-1.0); Blood Urea Nitrogen 70.0 mg/dL (8-24); CO2, Blood 21.0 mmol/L (21-32); Calcium, Blood 8.2 mg/dL (8.5-10.1); Chloride, Blood 113.0 mmol/L (98-108); Creatinine, Blood 4.77 mg/dL (0.60-1.20); Globulin, Blood 4.2 g/dL (2.2-4.0); Glucose, Blood 73.0 mg/dL (70-99); Potassium, Blood 4.5 mmol/L (3.5-5.5); Sodium, Blood 141.0 mmol/L (136-145); Total Protein, Blood 5.7 g/dL (6.4-8.2)
[2025-03-20 05:09] LABS: BAND PERCENT MAN 10 % (0-8); BASOPHILS ABSOLUTE MAN 0.00 K/mm3 (0.00-0.23); BASOPHILS PERCENT MAN 0 % (0-2); EOSINOPHILS ABSOLUTE MAN 0.10 K/mm3 (0.00-0.68); EOSINOPHILS PERCENT MAN 2 % (0-6); LYMPHOCYTES ABSOLUTE MAN 0.47 K/mm3 (0.84-5.20); LYMPHOCYTES PERCENT MAN 9 % (21-46); MONOCYTES ABSOLUTE MAN 0.52 K/mm3 (0.16-1.47); MONOCYTES PERCENT MAN 10 % (4-13); NEUTROPHILS ABSOLUTE MAN 4.14 K/mm3 (1.96-9.15); SEG NEUTROPHILS PERCENT MAN 69 % (41-73)
[2025-03-20 07:45] LABS: Source, Urine Voided
[2025-03-20 07:54] LABS: Bilirubin, Urine Neg (Neg); Color, Urine Yellow (P-Yellow); Glucose Qualitative, Urine Neg (Neg); Ketones, Urine Neg (Neg); Leukocyte Esterase, Urine Neg (Neg); Protein, Urine 3+ (Neg); Specific Gravity, Urine 1.015 (1.003-1.022); Urobilinogen, Urine NORM (Normal)
[2025-03-20 08:10] LABS: White Blood Cells, Urine 0-2 /hpf (0-5)
[2025-03-20 09:30] VITALS: BP 158/86
[2025-03-20 12:20] VITALS: BP 163/75
[2025-03-20] MEDS ORDERED: Mag Hydrox/Al Hydrox/Simeth 18 ML,Lidocaine 2% Viscous Soln 9 ML,Atropine/Scopalam/Hyos... PO ONE (12:25)
--- NOTE | 2025-03-20 12:59 | NUR ---
UPDATE: PT REPORTING CP WHILE THIS RN WAS ON LUNCH. GI COCKTAIL ORDERED. THIS RN AT BEDSIDE TO ASSESS PT. GI COCTAIL ADMINISTERED. PT REPORTS FEELING LIKE HE IS HAVING A HARD TIME BREATHING AND LIKE HIS IS GOING TO THROW UP. LUNG SOUNDS WHEEZY THROUGHOUT. RT CALLED FOR BREATHING TX. PT REPORTING RELIEF FROM BREATHING TX AND STATES THAT HIS NAUSEA IS EASING UP. PT NOT IN ANY DISTRESS AT THIS TIME.
--- NOTE | 2025-03-20 17:22 | NUR ---
SHIFT SUMMARY: PT A&OX4. FOLLOWS COMMANDS AND MAKES NEEDS KNOWN TO STAFF. PT CALLED FOR ASSISTANCE WITH THE URINAL FREQUENTLY AND WAS ONLY ABLE TO URINATE 50-100ML EACH TIME. HE WAS ABLE TO AMBULATE TO A CHAIR FOR BREAKFAST AND DINNER AND TO USE THE COMMODE A FEW TIMES THIS SHIFT. PT DID NOT HAVE MUCH OF AN APPETITE TODAY, STATES THE SAME AT HOME. PT HAD AN EPPISODE OF CP TODAY POST PO INTAKE, SEE PREVIOUS NOTE. NO ACUTE NEURO SYMPTOMS. PT WAS ON O2 VIA NC OR OXI MASK ANYWHERE BETWEEN 5-9 LITERS TO MAINTAIN O2 SATS >90%. WAS ABLE TO COUGH UP ALOT OF SPUTUM TODAY. PT NOT VERY COOPERATIVE WITH PT AND OT TODAY AND WAS EDUCATED ON THE IMPORNTANCE OF WORKING WITH THEM. NO OTHER SIGNIFICANT EVENTS HAPPENED DURING THIS SHIFT. WILL CONTINUE TO CARE FOR PT TILL END OF SHIFT.
[2025-03-20 18:41] LABS: Hematocrit 23.9 % (37.0-53.0); Hemoglobin 7.5 g/dL (13.5-17.5)
--- NOTE | 2025-03-20 20:10 | NUR ---
UPDATE PT HGB THIS AFTERNOON 7.5. NO AM LABS ORDERED. MD HEATON NOTIFIED. ORDER FOR H&H AT 0200 AND THEN CBC AND CMP WITH AM LABS.
[2025-03-20 21:13] VITALS: BP 166/74
[2025-03-20 23:47] VITALS: BP 135/69
[2025-03-20 23:48] VITALS: BP 135/69
[2025-03-21] VITALS (25 sets, daily range): BP systolic 112–156; BP diastolic 50–94
[2025-03-21 03:58] LABS: Hemoglobin 6.2 g/dL (13.5-17.5)
[2025-03-21 03:59] LABS: Hematocrit 19.5 % (37.0-53.0)
[2025-03-21] MEDS ORDERED: NS 500 ML IV SCH (04:20)
--- NOTE | 2025-03-21 05:00 | NUR ---
SHIFT SUMMARY PT ALERT, IRRITABLE. SP02>90% ON 7-12L HI DIMITRIOS. EXP WHEEZE NOTED. PRODUCTIVE COUGH, EDUCATED HOW TO SELF SUCTION. BREATHING TX PRN FROM RT THIS SHIFT. TELEMTRY SHOWS NSR/SINUS TACH. HTN AT START OF SHIFT. DENIES CP. C/O OF FEELING 'WEAK'. UP TO BSC MULTIPLE TIMES TO VOID/ATTEMPT A BM. ONLY SMEARS, BROWN, NO VISIBLE SIGNS OF BLEEDING. HGB 6.2, MD NOTIFIED. CURRENTLY INFUSING 1 UNIT PRBC PER IJEH ORDERS. POWER GLIDE INSERTED TO DAVON. PT SITTING ON SIDE OF BED STATING 'IM NOT GETTING ANY BETTER'. RN IN ROOM. CALL LIGHT IN REACH.
[2025-03-21 09:10] LABS: BASOPHILS ABSOLUTE AUTO 0.01 K/mm3 (0.00-0.23); BASOPHILS PERCENT AUTO 0 % (0-2); EOSINOPHILS ABSOLUTE AUTO 0.05 K/mm3 (0.00-0.68); EOSINOPHILS PERCENT AUTO 1 % (0-6); Hematocrit 20.3 % (37.0-53.0); Hemoglobin 6.5 g/dL (13.5-17.5); IMMATURE GRAN ABSOLUTE AUTO 0.10 K/mm3 (0.00-0.10); IMMATURE GRAN PERCENT AUTO 2 % (0-1); LYMPHOCYTES ABSOLUTE AUTO 0.49 K/mm3 (0.84-5.20); LYMPHOCYTES PERCENT AUTO 7 % (21-46); MONOCYTES ABSOLUTE AUTO 0.61 K/mm3 (0.16-1.47); MONOCYTES PERCENT AUTO 9 % (4-13); Mean Corpuscular HGB Conc 32.0 g/dL (31.5-36.5); Mean Corpuscular Volume 90 fL (80-100); NEUTROPHILS ABSOLUTE AUTO 5.40 K/mm3 (1.96-9.15); NEUTROPHILS PERCENT AUTO 81 % (41-73); NRBC ABSOLUTE 0.02 K/mm3 (0.00-0.02); NRBC Auto 0.3 /100 WBC (0.0-0.2); Platelet Count 139 K/mm3 (150-400); RDW Coefficient Variation 15.9 % (11.7-14.2); RDW Standard Deviation 52.2 fL (35.1-46.3)
[2025-03-21 09:33] LABS: Alanine Aminotransfer (ALT/SGP 10.0 U/L (12-78); Albumin, Blood 1.3 g/dL (3.4-5.0); Albumin/Globulin Ratio 0.4 (0.8-1.8); Anion Gap 14.0 mmol/L (3-11); Aspartate Aminotrans (AST/SGOT 7.0 U/L (12-37); Bilirubin, Total 0.2 mg/dL (0.1-1.0); Blood Urea Nitrogen 108.0 mg/dL (8-24); CO2, Blood 21.0 mmol/L (21-32); Calcium, Blood 7.4 mg/dL (8.5-10.1); Chloride, Blood 114.0 mmol/L (98-108); Creatinine, Blood 4.55 mg/dL (0.60-1.20); Globulin, Blood 3.5 g/dL (2.2-4.0); Glucose, Blood 143.0 mg/dL (70-99); Potassium, Blood 4.9 mmol/L (3.5-5.5); Sodium, Blood 144.0 mmol/L (136-145); Total Protein, Blood 4.8 g/dL (6.4-8.2)
[2025-03-21] MEDS ORDERED: Pantoprazole Sodium 40 MG Injection IV SCH (10:00)
[2025-03-21 14:04] LABS: Stool Occult Blood Guaiac 1 Pos (Neg)
--- NOTE | 2025-03-21 15:01 | NUR ---
UPDATE RESIDENT TEAM SPOKE WITH THIS RN ABOUT PT POSITIVE BLOOD NOTED IN STOOL AND THAT PT HGB WENT FROM 6.2 TO 6.5 AFTER RECIEVING ONE UNIT OF BLOOD TODAY. RESIDENT TEAM DISCUSSED COLONOSCOPY WITH PT AFTER RECIEVING BLOOD IN STOOL AND HGB RESULT, PT AGREEABLE TO COLONOSCOPY AT THIS TIME. JOSE D RN [facility] IS COVERING FOR GI AT 1450, UPDATED ON RESULTS. MD TO SEE PT IN THE MORNING.
[2025-03-21] MEDS ORDERED: Epoetin Alfa-EPBX 10,000 Unit/ML 1ML Vial SC SCH (18:00)
--- NOTE | 2025-03-21 18:34 | NUR ---
SHIFT SUMMARY PT A/OX3 COOPERATIVE WITH SOME CARE. PT MORE ALERT THIS MORNING, BECAME LETHARGIC THIS AFTERNOON. PT VSS THROUGHOUT SHIFT WITH O2 SATS RANGING 1-4L NC. PT 4L AT BEGINNING OF SHIFT AND TITRATED TO 1L NC, SATS IN LOW 90S. PT EASILY AGITATED THIS SHIFT,PT AND SISTER BOTH REPORT THAT PT IS NOT NORMALLY EASILY AGITATED. PT REPORT SOME CHEST PRESSURE RELATED TO HIM SWALLOWING ANY FOOD. PT SEEN BY SURGEON FOR POSSIBLE COLOSCOPY, PT INITIALLY REFUSING. PT RECIEVED ONE UNIT PRBC THIS MORNING AND HGB FROM 6.2 TO 6.5. PT HAS DARK COLORED STOOLS AND STOOL POSITVE FOR BLOOD. RESIDENT DISCUSSED COLONOSCOPY AGAIN AND PT AGREEABLE. PT REFUSED SOME MEDS THIS MORNING, SEE EMAR. PT RECIEVED SECOND UNIT PRBC THIS SHIFT.
[2025-03-21 20:44] LABS: Hematocrit 23.0 % (37.0-53.0); Hemoglobin 7.6 g/dL (13.5-17.5)
[2025-03-22] VITALS (10 sets, daily range): BP systolic 121–149; BP diastolic 51–83
[2025-03-22 03:43] LABS: BASOPHILS ABSOLUTE AUTO 0.02 K/mm3 (0.00-0.23); BASOPHILS PERCENT AUTO 0 % (0-2); EOSINOPHILS ABSOLUTE AUTO 0.10 K/mm3 (0.00-0.68); EOSINOPHILS PERCENT AUTO 1 % (0-6); Hematocrit 21.7 % (37.0-53.0); Hemoglobin 7.2 g/dL (13.5-17.5); IMMATURE GRAN ABSOLUTE AUTO 0.22 K/mm3 (0.00-0.10); IMMATURE GRAN PERCENT AUTO 3 % (0-1); LYMPHOCYTES ABSOLUTE AUTO 0.82 K/mm3 (0.84-5.20); LYMPHOCYTES PERCENT AUTO 12 % (21-46); MONOCYTES ABSOLUTE AUTO 0.56 K/mm3 (0.16-1.47); MONOCYTES PERCENT AUTO 8 % (4-13); Mean Corpuscular HGB Conc 33.2 g/dL (31.5-36.5); Mean Corpuscular Volume 88 fL (80-100); NEUTROPHILS ABSOLUTE AUTO 5.27 K/mm3 (1.96-9.15); NEUTROPHILS PERCENT AUTO 76 % (41-73); NRBC ABSOLUTE 0.00 K/mm3 (0.00-0.02); NRBC Auto 0.0 /100 WBC (0.0-0.2); Platelet Count 146 K/mm3 (150-400); RDW Coefficient Variation 15.9 % (11.7-14.2); RDW Standard Deviation 51.5 fL (35.1-46.3)
[2025-03-22 04:10] LABS: Alanine Aminotransfer (ALT/SGP 11.0 U/L (12-78); Albumin, Blood 1.5 g/dL (3.4-5.0); Albumin/Globulin Ratio 0.4 (0.8-1.8); Anion Gap 12.0 mmol/L (3-11); Aspartate Aminotrans (AST/SGOT 9.0 U/L (12-37); Bilirubin, Total 0.2 mg/dL (0.1-1.0); Blood Urea Nitrogen 112.0 mg/dL (8-24); CO2, Blood 22.0 mmol/L (21-32); Calcium, Blood 8.0 mg/dL (8.5-10.1); Chloride, Blood 117.0 mmol/L (98-108); Creatinine, Blood 4.88 mg/dL (0.60-1.20); Globulin, Blood 3.6 g/dL (2.2-4.0); Glucose, Blood 102.0 mg/dL (70-99); Phosphorus, Blood 3.5 mg/dL (2.5-4.9); Potassium, Blood 5.0 mmol/L (3.5-5.5); Sodium, Blood 146.0 mmol/L (136-145); Total Iron Binding Capacity 120.0 ug/dL (250-450); Total Protein, Blood 5.1 g/dL (6.4-8.2)
--- NOTE | 2025-03-22 05:01 | NUR ---
SHIFT SUMMARY: PATIENT HAS BEEN AGITATED AND A&OX3, OFTEN REPEATS QUESTIONS, BUT IS EASILY REORIENTED. PATIENT IS CURRENTLY ON 4L OPEN MASK (PER PATIENT REQUEST DUE TO HIS NOSE BEING IRRITATED FROM THE NC) WITH >90% OXYGEN SATS. TELE SHOWS SINUS RHYTHM WITH HR IN THE 70'S BPM. PROTONIX GTT RUNNING AT 10ML/HR CONTINUOUS. PATIENT REPORTED PAIN IN HIS LEFT FLANK BUT WAS MANAGED WITH IV DILAUDID PER MAR. PATIENT HAS HAD MULTIPLE BLACK COLORED BM'S THROUGHOUT SHIFT IN BSC. PATIENT IS A SBA TO BSC AND URINAL HELP WITH PLACEMENT/EMPTYING. PATIENT HAS URGENCY WHEN IT COMES TO USING THE URINAL OR BSC, BUT CALLS APPROPRIATELY. PATIENT LAYING IN BED WITH CALL LIGHT IN REACH.
[2025-03-22] MEDS ORDERED: Peg/Electrolytes 4,000 ML BTL PT ONE (08:40)
[2025-03-22 10:03] LABS: Hematocrit 20.8 % (37.0-53.0); Hemoglobin 6.8 g/dL (13.5-17.5)
[2025-03-22] MEDS ORDERED: Iron Dextran 50 MG / ML 2ML Vial IV ONE (10:50)
[2025-03-22 11:06] LABS: Hematocrit 21.8 % (37.0-53.0); Hemoglobin 7.2 g/dL (13.5-17.5)
[2025-03-22] MEDS ORDERED: Iron Dextran 975 MG in NS 250 ML IV ONE (12:00)
--- NOTE | 2025-03-22 15:29 | NUR ---
PT CURRENTLY RECIEVING PRBC'S. PT RESTING COMFORTABLY IN BED. PT EXPRESSED CONCERNS ASKING "JUST BE STRAIGHT WITH ME. AM I DOING OK?" PT UPDATED ON HIS LABS AND PLAN OF CARE. PT ATTEMPTING TO DRINK BOWLE PREP BUT IS ONLY ABLE TO TAKE SMALL SIPS AT A TIME, PER PT. PT REPORTED THAT WHEN HE DRINKS ANYTHING, THE FLUID "BOTTLES UP" IN HIS CHEST, INDICATING THAT GETS STUCK. PT ASKED TO SHOW WHERE, PT POINTS TO UPPER STERNUM.
[2025-03-22 18:07] LABS: Hematocrit 25.3 % (37.0-53.0); Hemoglobin 8.4 g/dL (13.5-17.5)
--- NOTE | 2025-03-22 18:52 | NUR ---
SHIFT SUMMARY PT A/OX3 FORGETFUL AT TIMES. PT BECOMING MORE ANXIOUS HE REPORTS THAT HE "IS NOT GETTING BETTER." PT HAS SOME DIFFICULTY EXPRESSING HIS CONCERNS, NEEDS TIME TO GATHER HIS THOUGHTS. PT VSS THROUGHOUT SHIFT WITH O2 SATS IN THE 90'S ON 3-4L NC. NO REPORT OF SOB. PT RECIEVED 1 UNIT PRBC THIS SHIFT, TOELRATED WELL. PT HAD MANY SMALL BLACK FIRM STOOLS. STARTED ON BOWEL PREP THIS MORNING, PT NOT DRINKING MUCH OF BOWEL PREP. PT ENCOURAGED TO DRINK THE PREP, PT REPORTS THAT HE FEELS LIKE IT GETS STUCK AND THEN MAKES HIM FEEL LIKE HE NEEDS TO BURP. PT TRIES TO DRINK PREP WHEN CONSTANTLY ENCOURAGED BY STAFF.
--- NOTE | 2025-03-22 21:09 | NUR ---
CARE ASSUMPTION PT ALERT, ABLE TO MAKE NEEDS KNOWN. SP02>90% ON 4L NC. PRODUCTIVE COUGH, SELF SUCTIONING GORDON SPUTUM. TELEMETRY SHOWS NSR, HR 80'S. C/O OF HEADACHE, MEDICATED W/ TYLENOL PER EMAR. PURWIK TO SUCTION. UP TO BSC TO HAVE BM. DARK, SOME LIQUID, SOME SOLID. ENCOURAGING GOLYTLEY PREP. PT RELUCTANT TO DRINK BUT REFUSES NG. ENCOURAGING SIPS FREQUENTLY. FLUIDS INFUSING PER EMAR. PROTONIX INFUSING PER EMAR. PT'S SON, RHODA, CALLED. UPDATE GIVEN W/ PT'S PERMISSION. PT RESTING IN BED, CALL LIGHT IN REACH.
[2025-03-22 22:45] LABS: Hematocrit 23.1 % (37.0-53.0); Hemoglobin 7.6 g/dL (13.5-17.5)
[2025-03-23 04:25] VITALS: BP 146/74
[2025-03-23 05:27] LABS: Hematocrit 24.4 % (37.0-53.0); Hemoglobin 8.2 g/dL (13.5-17.5); Mean Corpuscular HGB Conc 33.6 g/dL (31.5-36.5); Mean Corpuscular Volume 88 fL (80-100); NRBC ABSOLUTE 0.00 K/mm3 (0.00-0.02); NRBC Auto 0.0 /100 WBC (0.0-0.2); Platelet Count 175 K/mm3 (150-400); RDW Coefficient Variation 15.9 % (11.7-14.2); RDW Standard Deviation 51.7 fL (35.1-46.3)
[2025-03-23 05:45] LABS: Alanine Aminotransfer (ALT/SGP 14.0 U/L (12-78); Albumin, Blood 1.6 g/dL (3.4-5.0); Albumin/Globulin Ratio 0.4 (0.8-1.8); Anion Gap 11.0 mmol/L (3-11); Aspartate Aminotrans (AST/SGOT 14.0 U/L (12-37); Bilirubin, Total 0.2 mg/dL (0.1-1.0); Blood Urea Nitrogen 91.0 mg/dL (8-24); CO2, Blood 22.0 mmol/L (21-32); Calcium, Blood 8.1 mg/dL (8.5-10.1); Chloride, Blood 117.0 mmol/L (98-108); Creatinine, Blood 4.68 mg/dL (0.60-1.20); Globulin, Blood 3.9 g/dL (2.2-4.0); Glucose, Blood 128.0 mg/dL (70-99); Phosphorus, Blood 4.1 mg/dL (2.5-4.9); Potassium, Blood 4.4 mmol/L (3.5-5.5); Sodium, Blood 146.0 mmol/L (136-145); Total Protein, Blood 5.5 g/dL (6.4-8.2)
[2025-03-23 05:52] LABS: BAND PERCENT MAN 5 % (0-8); BASOPHILS ABSOLUTE MAN 0.00 K/mm3 (0.00-0.23); BASOPHILS PERCENT MAN 0 % (0-2); EOSINOPHILS ABSOLUTE MAN 0.18 K/mm3 (0.00-0.68); EOSINOPHILS PERCENT MAN 2 % (0-6); LYMPHOCYTES ABSOLUTE MAN 0.82 K/mm3 (0.84-5.20); LYMPHOCYTES PERCENT MAN 9 % (21-46); MONOCYTES ABSOLUTE MAN 0.45 K/mm3 (0.16-1.47); MONOCYTES PERCENT MAN 5 % (4-13); NEUTROPHILS ABSOLUTE MAN 7.71 K/mm3 (1.96-9.15); SEG NEUTROPHILS PERCENT MAN 79 % (41-73)
--- NOTE | 2025-03-23 05:52 | NUR ---
SHIFT SUMMARY PT ALERT, USING CALL LIGHT APPROPRIATELY. ABLE TO ANSWER ORIENTATION QUESTIONS. SP02>90%ON 4L NC. PRODUCTIVE COUGH, GORDON SPUTUM. PT STATES NOT MUCH SPUTUM PREVIOUS DAYS. SELF SUCTIONING. TELEMETRY SHOWS NSR, HR MOSTLY 70'S-80'S. C/O OF HEADACHE, MEDICATED W/ TYLENOL PER EMAR. PREPPING FOR COLONOSCOPY, CONSUMED ABOUT JAIL THRU GOLYTLY. PT UP TO BSC FREQUENTLY, STOOL CURRENTLY LIQUID YELLOW MIXED WITH BLACK. CONTINUING TO ENCOURAGE DRINKING PREP. PURWIK TO SUCTION YELLOW URINE. PROTONIX GTT PER EMAR. FLUIDS INFUSING PER EMAR. PT CURRENTLY ON BSC. CALL LGT IN REACH.
[2025-03-23 08:08] VITALS: BP 162/76
[2025-03-23 11:20] VITALS: BP 149/73
--- NOTE | 2025-03-23 13:08 | NUR ---
PT ENDORSED NAUSEA AND HEADACHE, ZOFRAN AND TYLENOL GIVEN PER ORDERS. PT DRANK BOWEL PREP WHILE TAKING TYLENOL FOR HEADACHE. WILL CONTINUE TO ENCOURAGE DRINKING BOWEL PREP.
[2025-03-23 15:30] VITALS: BP 148/66
[2025-03-23 19:22] VITALS: BP 144/62
--- NOTE | 2025-03-23 19:29 | NUR ---
SHIFT SUMMARY PT A/OX34, CONFUSED AT TIMES. PT LETHARGIC THIS MORNING BUT MORE ALERT THIS AFTERNOON.PT ABLE TO EXPRESS NEEDS AND USES CALL LIGHT FOR ASSISTANCE. PT ABLE TO AMBULATE TO BSC FOR FREQUENT LOOSE BMS, PT ATTEMPTING BOWEL PREP. BOWEL PREP STARTED YESTERDAY, OVER HALF OF PREP HAS BEEN DRANK. PT FREQUENTLY ENCOURAGED TO DRINK BOWEL PREP, PT ENDORSED NAUSEA AND WOULD DECLINE PREP MULTIPLE TIMES. PT STOOLS GRADUALLY GETTING CLEARER THROUGHOUT HSIFT. SOME SLIGHT FECAL FLAKES NOTED THIS SHIFT BUT STILL CLEARING. VSS THROUGHOUT SHIFT WITH O2 SATS IN MANUEL 90'S ON 3L NC. PT DID ENDORSE SLIGHT CHEST PRESSURE WHEN DRINKING BOWEL PREP, NONE NOTED AT REST. PT REPORTED SOB AFTER AMBULATING TO BSC.
[2025-03-24] VITALS (7 sets, daily range): BP systolic 113–153; BP diastolic 59–98
--- NOTE | 2025-03-24 02:10 | NUR ---
PT WAS MAKING LITTLE PROGRESS WITH BOWEL PREP. ENCOURAGED FREQUENTLY TO CONTINUE INTAKE D/T ORDER OF NPO AT MIDNIGHT. PT REFUSED AND STATED HE WAS NOT GOING TO FINISH IT. PT EDUCATED ON NG TUBE PLACEMENT FOR INTAKE OF BOWEL PREP. PT WAS AGREEABLE TO RECEIVE NG TUBE. PROVIDER CONSULTED AND NG TUBE ORDER WAS PLACE. ATTEMPTED NG INSERTION X2 BEFORE PT BEGAN REFUSING. PT STATED HE WOULD DRINK THE BOWEL PREP AGAIN. MADE GOOD PROGRESS FOR 20 MINUTES BEFORE PT BEGAN REFUSING BOWEL PREP AGAIN. PT STATED HE DOES NOT WANT TO FINISH IT D/T FEELING SICK AND WE WOULD HAVE TO DEAL WITH THAT. THERES ABOUT LESS THAN A QUARTER LEFT. PT HAS BEEN NPO SINCE MIDNIGHT. FREQUENT STOOLS ON BSC. STOOL IS LOOSE, YELLOW MIXED WITH BROWN.
[2025-03-24 04:00] LABS: BASOPHILS ABSOLUTE AUTO 0.03 K/mm3 (0.00-0.23); BASOPHILS PERCENT AUTO 0 % (0-2); EOSINOPHILS ABSOLUTE AUTO 0.14 K/mm3 (0.00-0.68); EOSINOPHILS PERCENT AUTO 1 % (0-6); Hematocrit 24.7 % (37.0-53.0); Hemoglobin 7.8 g/dL (13.5-17.5); IMMATURE GRAN ABSOLUTE AUTO 0.55 K/mm3 (0.00-0.10); IMMATURE GRAN PERCENT AUTO 6 % (0-1); LYMPHOCYTES ABSOLUTE AUTO 0.87 K/mm3 (0.84-5.20); LYMPHOCYTES PERCENT AUTO 9 % (21-46); MONOCYTES ABSOLUTE AUTO 0.69 K/mm3 (0.16-1.47); MONOCYTES PERCENT AUTO 7 % (4-13); Mean Corpuscular HGB Conc 31.6 g/dL (31.5-36.5); Mean Corpuscular Volume 91 fL (80-100); NEUTROPHILS ABSOLUTE AUTO 7.53 K/mm3 (1.96-9.15); NEUTROPHILS PERCENT AUTO 77 % (41-73); NRBC ABSOLUTE 0.00 K/mm3 (0.00-0.02); NRBC Auto 0.0 /100 WBC (0.0-0.2); Platelet Count 181 K/mm3 (150-400); RDW Coefficient Variation 15.9 % (11.7-14.2); RDW Standard Deviation 52.5 fL (35.1-46.3)
[2025-03-24 04:19] LABS: Alanine Aminotransfer (ALT/SGP 13.0 U/L (12-78); Albumin, Blood 1.4 g/dL (3.4-5.0); Albumin/Globulin Ratio 0.4 (0.8-1.8); Anion Gap 11.0 mmol/L (3-11); Aspartate Aminotrans (AST/SGOT 13.0 U/L (12-37); Bilirubin, Total 0.2 mg/dL (0.1-1.0); Blood Urea Nitrogen 68.0 mg/dL (8-24); CO2, Blood 20.0 mmol/L (21-32); Calcium, Blood 7.5 mg/dL (8.5-10.1); Chloride, Blood 120.0 mmol/L (98-108); Creatinine, Blood 4.34 mg/dL (0.60-1.20); Globulin, Blood 3.7 g/dL (2.2-4.0); Glucose, Blood 98.0 mg/dL (70-99); Phosphorus, Blood 4.1 mg/dL (2.5-4.9); Potassium, Blood 4.1 mmol/L (3.5-5.5); Sodium, Blood 147.0 mmol/L (136-145); Total Protein, Blood 5.1 g/dL (6.4-8.2)
--- NOTE | 2025-03-24 05:49 | NUR ---
SHIFT SUMMARY: PT A&OX4 ANXIOUS AND COOPERATIVE AT TIMES. PT REFUSED TO DRINK ALL OF BOWEL PREP. SEE PREVIOUS NOTE. FREQUENT BOWEL MOVEMENTS. STOOL IS SMALL, LOOSE, AND YELLOW. POSSIBLE COLONOSCOPY 03/24. PT KEPT NPO SINCE MIDNIGHT. VSS ON 3L NC. MAINTAINED >92%. OCCASIONAL PRODUCTIVE COUGH. USES SUCTION AT BEDSIDE. PT C/O NAUSEA WHEN AMBULATING TO BSC. MEDICATED PER EMAR. PT C/O TOOTH ACHE AND REPORTS HE HAD AN OUTPATIENT DENTAL APPOINTMENT SCHEDULED DURING STAY IN THE HOSPITAL. CONSIDER DENTAL HYGIENE CONSULT. BED IS LOW AND LOCKED. CALL LIGHT WITHIN REACH. CONTINUE WITH CURRENT PLAN OF CARE.
--- NOTE | 2025-03-24 07:26 | NUR ---
ASSUMPTION NOTE: THIS RN TO ASSUME CARE OF PATIENT. PATIENT IS ASLEEP IN BED, EASILY AROUSABLE TO VOICE AND HIS NAME. VITAL SIGNS STABLE. PATIENT WAS ENCOURAGED TO DRINK SOME OF THE BOWEL PREP BUT DECLINED. PT STATED "I WON'T BE FINSIHING THAT, I DON'T CARE WHAT IT MEANS". PT WAS INFORMED THE REASONING BEHIND THE PREP TO GET A COLONSCOPY TO HELP NARROW DOWN THE SOURCE OF BLEEDING HIS HEMOGLOBIN WAS LOW AGAIN THIS MORNING. PT STATED "I DON'T CARE I DON'T WANT TO DRINK ANYMORE OF IT". PATIENT BED IN LOWEST,LOCKED POSITION, HAS CALL LIGHT WITHIN REACH & BED IN LOWEST POSITON.
--- NOTE | 2025-03-24 10:11 | NUR ---
SURGEON CONTACTED: THIS RN CONTACTED SURGEON REGARDING PATIENT STATING HE WOULD NOT TAKE ANOTHER BOWEL PREP BOTTLE AND STOOLS BEING YELLOW/GREEN STOOLS. SURGEON GAVE ORDER TO HAVE PATIENT COMPLETE THIS BOTTLE AND HE WILL FOLLOW THROUGH WITH COLONSCOPY ONCE COMPLETED.
--- NOTE | 2025-03-24 10:55 | NUR ---
SURGEON ROUNDED: SURGEON RUNDED AND GAVE PATIENT OK TO NOT COMPLETE BOWEL PREP. WILL BE GOING DOWN FOR COLONSCOPY AROUND 1.
--- NOTE | 2025-03-24 14:22 | NUR ---
History, Chart, Medications and Allergies reviewed before start of procedure. Pre-Op teaching done. Pt verbalizes understanding. Patient confirms NPO status and agrees with scheduled surgery.
--- NOTE | 2025-03-24 15:10 | NUR ---
03/24/25 1510 Kiana Cazares CRNA; SEE ANESTHESIA RECORDS.
--- NOTE | 2025-03-24 16:08 | NUR ---
ARRIVAL FROM SURGERY PATIENT ARRIVES BACK TO UNIT FROM SURGERY. AWAKE AND ABLE TO HAVE A CONVERSATION. IS ALERT AND ORIENTED X4, A LITTLE SLEEPY BUT ASKING FOR FOOD. VITAL SIGNS STABLE. ENDORSED A HEADACHE, THIS RN TO LOOK AT EMAR FOR MEDICATIONS TO GIVE. BLOOD SUGAR WAS CHECKED AND IS NORMAL.
--- NOTE | 2025-03-24 17:16 | NUR ---
SHIFT SUMMARY: PATIENT IS ALERT AND ORIENTED X4 & COOPERATIVE WITH HIS CARE, IS ABLE TO MAKE NEEDS KNOWN & USES CALL LIGHT APPRORAITELY. SATTING >92% ON 3 LITES VIA NASAL CANNULA, PATIENT ENDORSES FEELING SHORT OF BREATH WHEN GETTING UP TO THE BEDSIDE COMMODE AND BACK TO BED. ON TELE SHOWING SINUS RYTHM WITH RATE BETWEEN 63-90. PATIENT CONTINUES TO BE ON 1/2NS AT 100MLS/HR, WITH PROTONIX DRIP WELL. PATIENT HAD A COLONSCOPY AND ENDOSCTOPY DONE WITH 2 POLYPS REMOVED, SEE SURGERY NOTES FOR MORE INFORMATION. PATIENT WAS SLEEPY AFTER SURGERY BUT WAS ALERT AND ABLE TO ANSWER ALL QUESTIONS. SISTER CALLED AND WAS UPDATED WITH EVERYTHING THAT OCCURED TODAY. PLAN CONTINUES TO MONITOR HEMAGLOBIN AND LABS NOW THAT ENDSOCTOY AND COLONSCOPY ARE COMPLETED. PATIENT RESTING IN BED, EVEN & UNLABORED RESPIRATIONS AT REST. BED IN LOWEST LOCKED POSIIOTN AND STATING NOTHING ELSE IS NEEDED AT THIS TIEM.
--- NOTE | 2025-03-24 18:45 | NUR ---
md menjivar: gymnastic teacher otto patient with this rn at bedside along with family. md cuevas she will be placing orders to stop fluids but from a kidney stand point patient is improving. this rn awaiting orders.
[2025-03-25] VITALS (7 sets, daily range): BP systolic 119–156; BP diastolic 55–80
[2025-03-25 04:31] LABS: Albumin, Blood 1.4 g/dL (3.4-5.0); Anion Gap 11 mmol/L (3-11); Blood Urea Nitrogen 58 mg/dL (8-24); CO2, Blood 20 mmol/L (21-32); Calcium, Blood 7.6 mg/dL (8.5-10.1); Chloride, Blood 118 mmol/L (98-108); Creatinine, Blood 4.26 mg/dL (0.60-1.20); Glucose, Blood 116 mg/dL (70-99); Phosphorus, Blood 4.3 mg/dL (2.5-4.9); Potassium, Blood 4.0 mmol/L (3.5-5.5); Sodium, Blood 145 mmol/L (136-145)
[2025-03-25 05:07] LABS: QUANTIFERON MITOGEN MINUS NIL 1.34 IU/mL; QUANTIFERON NIL 0.01 IU/mL; QUANTIFERON PLUS TB1 MINUS NIL 0.00 IU/mL (<=0.34); QUANTIFERON PLUS TB2 MINUS NIL 0.00 IU/mL (<=0.34)
--- NOTE | 2025-03-25 06:07 | NUR ---
SHIFT SUMMARY: PT A&OX4 CALM AND COOPERATIVE. SOLMULENT AT START OF SHIFT WITH BRIEF EYE OPENING TO SOUND, ORIENTED SPEECH, AND OBEYING COMMANDS. BECAME MORE ALERT THROUGHOUT SHIFT. VSS ON 3L NC. PT HAD SMALL AMOUNT OF BLOOD IN BSC WHILE TRYING TO HAVE BM. NO FECAL NOTED. NO OTHER SIGNIFICANT EVENTS TO REPORT DURING SHIFT. BED IS LOW AND LOCKED. CALL LIGHT WITHIN REACH. CONTINUE WITH CURRENT PLAN OF CARE.
[2025-03-25 06:15] LABS: BASOPHILS ABSOLUTE AUTO 0.02 K/mm3 (0.00-0.23); BASOPHILS PERCENT AUTO 0 % (0-2); EOSINOPHILS ABSOLUTE AUTO 0.08 K/mm3 (0.00-0.68); EOSINOPHILS PERCENT AUTO 1 % (0-6); Hematocrit 22.6 % (37.0-53.0); Hemoglobin 7.3 g/dL (13.5-17.5); IMMATURE GRAN ABSOLUTE AUTO 0.43 K/mm3 (0.00-0.10); IMMATURE GRAN PERCENT AUTO 5 % (0-1); LYMPHOCYTES ABSOLUTE AUTO 0.72 K/mm3 (0.84-5.20); LYMPHOCYTES PERCENT AUTO 8 % (21-46); MONOCYTES ABSOLUTE AUTO 0.59 K/mm3 (0.16-1.47); MONOCYTES PERCENT AUTO 6 % (4-13); Mean Corpuscular HGB Conc 32.3 g/dL (31.5-36.5); Mean Corpuscular Volume 90 fL (80-100); NEUTROPHILS ABSOLUTE AUTO 7.44 K/mm3 (1.96-9.15); NEUTROPHILS PERCENT AUTO 80 % (41-73); NRBC ABSOLUTE 0.00 K/mm3 (0.00-0.02); NRBC Auto 0.0 /100 WBC (0.0-0.2); Platelet Count 210 K/mm3 (150-400); RDW Coefficient Variation 15.6 % (11.7-14.2); RDW Standard Deviation 51.1 fL (35.1-46.3)
--- NOTE | 2025-03-25 07:26 | NUR ---
ASSUMPTION NOTE: THIS RN TO ASSUME CARE OF PATIENT. PATIENT IS CURRENTLY GETTING A BED BATH AT THIS TIME. DENIED CHEST PAIN/PRESSURE OR FEELING SHORT OF BREATH AT THIS TIME. VITAL SIGNS STABLE AT THIS TIME. BED IN LOWEST LOCKED POSITION, CALL LIGHT WITHIN REACH & STATING NOTHING ELSE IS NEEDED AT THIS TIME.
--- NOTE | 2025-03-25 09:13 | NUR ---
RESIDENT ROUNDED: RESIDENT ROUNDED AND GAVE VERBAL ORDER TO CHANGE PATIENTS STATUS TO MEDICAL WITHOUT TELE. PATEINT MADE AWARE, ALONG WITH ATTENDING ORDERING A CHEST X-RAY.
--- NOTE | 2025-03-25 11:35 | NUR ---
TRANSFER NOTE: THIS RN GAVE REPORT TO DEBORAH LESTER PRIOR TO PATIENT TRASNFFERING UP. PATIENT IS ALERT AND ORIENTED X4 & COOPERATIVE WITH HIS CARE, IS ABLE TO MAKE NEEDS KNOWN & USES CALL LIGHT APPRORPAITELY. PATIENT SATTING >92% ON 3 LITERS VIA NASAL CANNULA. PATIENT WENT UP VIA WHEELCHAIR AND TOOK ALL PERSONAL BELONGINGS WITH HIM ALONG WITH MEDCIATIONS. PATIENT AWARE PLAN WILL BE TO CONTINUE TO MONITOR HEMOGLOBIN AND IF IT DROPS TOMRROW BELOW 7 THEN HE WILL GET A BLOOD TRANSFUSED IF NEEDED.
--- NOTE | 2025-03-25 17:03 | NUR ---
PATIENT IS ALERT ND ORIENTED AND COOPERATIVE WITH CARE. TRANSFERRED FROM PCU THIS AFTERNOON. PATIENT HAS BEEN RESTING IN BED BETWEEN VISITORS. VOIDING IN THE URINAL WITH HELP. ON 3L O2 VIA NC. CONTINUOUS PULSE OX IN PLACE. WILL CONTINUE TO MONITOR.
[2025-03-26 04:19] VITALS: BP 141/64
[2025-03-26 05:12] LABS: BASOPHILS ABSOLUTE AUTO 0.02 K/mm3 (0.00-0.23); BASOPHILS PERCENT AUTO 0 % (0-2); EOSINOPHILS ABSOLUTE AUTO 0.05 K/mm3 (0.00-0.68); EOSINOPHILS PERCENT AUTO 1 % (0-6); Hematocrit 24.7 % (37.0-53.0); Hemoglobin 7.9 g/dL (13.5-17.5); IMMATURE GRAN ABSOLUTE AUTO 0.41 K/mm3 (0.00-0.10); IMMATURE GRAN PERCENT AUTO 4 % (0-1); LYMPHOCYTES ABSOLUTE AUTO 0.75 K/mm3 (0.84-5.20); LYMPHOCYTES PERCENT AUTO 8 % (21-46); MONOCYTES ABSOLUTE AUTO 0.71 K/mm3 (0.16-1.47); MONOCYTES PERCENT AUTO 7 % (4-13); Mean Corpuscular HGB Conc 32.0 g/dL (31.5-36.5); Mean Corpuscular Volume 91 fL (80-100); NEUTROPHILS ABSOLUTE AUTO 7.68 K/mm3 (1.96-9.15); NEUTROPHILS PERCENT AUTO 80 % (41-73); NRBC ABSOLUTE 0.00 K/mm3 (0.00-0.02); NRBC Auto 0.0 /100 WBC (0.0-0.2); Platelet Count 238 K/mm3 (150-400); RDW Coefficient Variation 15.8 % (11.7-14.2); RDW Standard Deviation 50.8 fL (35.1-46.3)
[2025-03-26 05:38] LABS: Alanine Aminotransfer (ALT/SGP 11.0 U/L (12-78); Albumin, Blood 1.4 g/dL (3.4-5.0); Albumin/Globulin Ratio 0.4 (0.8-1.8); Anion Gap 10.0 mmol/L (3-11); Aspartate Aminotrans (AST/SGOT 7.0 U/L (12-37); Bilirubin, Total 0.3 mg/dL (0.1-1.0); Blood Urea Nitrogen 47.0 mg/dL (8-24); CO2, Blood 21.0 mmol/L (21-32); Calcium, Blood 7.6 mg/dL (8.5-10.1); Chloride, Blood 118.0 mmol/L (98-108); Creatinine, Blood 4.4 mg/dL (0.60-1.20); Globulin, Blood 4.0 g/dL (2.2-4.0); Glucose, Blood 85.0 mg/dL (70-99); Phosphorus, Blood 4.0 mg/dL (2.5-4.9); Potassium, Blood 3.9 mmol/L (3.5-5.5); Sodium, Blood 145.0 mmol/L (136-145); Total Protein, Blood 5.4 g/dL (6.4-8.2)
--- NOTE | 2025-03-26 05:56 | NUR ---
SHIFT SUMMARY PT FEELING SOB WITH ANY ACTIVITY. INCREASED WOB NOTED AFTER REPOSITIONING IN BED. PT C/O URGENCY WITH URINATION, STATING WOSENING SOB DURING AND AFTER USING URINAL. PUREWICK PLACED. O2 TURNED DOWN FROM 4L TO 3L VIA OXIMASK. CONTINUOUS PULSE OX IN PLACE. ORDER RECEIVED FOR SIMETHICONE FOR C/O GAS PRESSURE AND ORDER RECEIVED FOR ATARAX FOR C/O INSOMNIA. PT SLEPT ONLY SHORT PERIODS DURING THE NIGHT. PLAN FOR CHEST CT THIS AM.
[2025-03-26 07:53] VITALS: BP 152/69
--- NOTE | 2025-03-26 10:28 | NUR ---
TELE STRIP VERIFICATION SCANNED TELE STRIP DATED 03/26/25 AT 07:26 VERIFIED NSR W/PAC'S.
[2025-03-26 16:58] VITALS: BP 165/87
--- NOTE | 2025-03-26 18:27 | NUR ---
SHIFT SUMMARY PT CONT LEVEL OF CARE. PT HAD CT OF LUNGS THIS SHIFT IMAGINE SHOWN WORSING OF L LUNG PNA. PT HAS BEED EDUCATED SEVERAL TIMES THIS SHIFT BY THIS NURSE, SALES DEVELOPMENT SPECIALIST, PROVIDER, AND THERAPY THE IMPORTANCE OF NOT LAYING ON L SIDE ALL THE TIME AND GETTING UP AND MOVING AROUND. THIS NURSE TOOK OFF PUREWICK AND HAS BEEN HAVING PT VOID IN BSC.
[2025-03-26] MEDS ORDERED: Ipratropium/Albuterol SulF 2.5-0.5MG/3 ML Amp INH SCH (19:40)
[2025-03-26 19:42] VITALS: BP 134/63
[2025-03-27 00:28] VITALS: BP 137/61
--- NOTE | 2025-03-27 02:57 | NUR ---
SHIFT SUMMARY NO ACUTE EVENTS DURING THIS SHIFT. O2 @3L VIA OXIMASK, O2 SAT'S LOW-MID 90'S. OCCASIONAL CLEARING OF THE LUNGS COUGH NOTED. CONTINUING PT EDUCATION. PT REPORTS INTERMITTENT SOB WHILE REPOSITIONING HIMSELF IN BED. PT IN SITTING POSITION, RESTING IN BED, HOB ELEVATED. MEDICATED ONCE PER EMAR FOR LEFT SIDED RIB PAIN 04/11 PER PT REPORT. BED AT THE LOWEST POSITION, CALL LIGHT W/I REACH. PT IS ABLE TO MAKE HIS NEEDS KNOWN, A/O X3-4.
[2025-03-27 03:46] VITALS: BP 140/73
[2025-03-27 05:12] LABS: BASOPHILS ABSOLUTE AUTO 0.04 K/mm3 (0.00-0.23); BASOPHILS PERCENT AUTO 0 % (0-2); EOSINOPHILS ABSOLUTE AUTO 0.07 K/mm3 (0.00-0.68); EOSINOPHILS PERCENT AUTO 1 % (0-6); Hematocrit 25.4 % (37.0-53.0); Hemoglobin 7.9 g/dL (13.5-17.5); IMMATURE GRAN ABSOLUTE AUTO 0.40 K/mm3 (0.00-0.10); IMMATURE GRAN PERCENT AUTO 4 % (0-1); LYMPHOCYTES ABSOLUTE AUTO 0.58 K/mm3 (0.84-5.20); LYMPHOCYTES PERCENT AUTO 6 % (21-46); MONOCYTES ABSOLUTE AUTO 0.88 K/mm3 (0.16-1.47); MONOCYTES PERCENT AUTO 9 % (4-13); Mean Corpuscular HGB Conc 31.1 g/dL (31.5-36.5); Mean Corpuscular Volume 92 fL (80-100); NEUTROPHILS ABSOLUTE AUTO 7.97 K/mm3 (1.96-9.15); NEUTROPHILS PERCENT AUTO 80 % (41-73); NRBC ABSOLUTE 0.00 K/mm3 (0.00-0.02); NRBC Auto 0.0 /100 WBC (0.0-0.2); Platelet Count 276 K/mm3 (150-400); RDW Coefficient Variation 15.7 % (11.7-14.2); RDW Standard Deviation 52.0 fL (35.1-46.3)
[2025-03-27 05:43] LABS: Alanine Aminotransfer (ALT/SGP 9.0 U/L (12-78); Albumin, Blood 1.5 g/dL (3.4-5.0); Albumin/Globulin Ratio 0.3 (0.8-1.8); Anion Gap 9.0 mmol/L (3-11); Aspartate Aminotrans (AST/SGOT 6.0 U/L (12-37); Bilirubin, Total 0.2 mg/dL (0.1-1.0); Blood Urea Nitrogen 42.0 mg/dL (8-24); CO2, Blood 22.0 mmol/L (21-32); Calcium, Blood 7.8 mg/dL (8.5-10.1); Chloride, Blood 117.0 mmol/L (98-108); Creatinine, Blood 4.46 mg/dL (0.60-1.20); Globulin, Blood 4.3 g/dL (2.2-4.0); Glucose, Blood 99.0 mg/dL (70-99); Phosphorus, Blood 5.1 mg/dL (2.5-4.9); Potassium, Blood 4.3 mmol/L (3.5-5.5); Sodium, Blood 144.0 mmol/L (136-145); Total Protein, Blood 5.8 g/dL (6.4-8.2)
[2025-03-27 08:25] VITALS: BP 113/53
[2025-03-27 10:57] LABS: ALPHA 1 GLOBULIN 0.59 g/dL (0.19-0.46); ALPHA 2 GLOBULIN 0.88 g/dL (0.48-1.05); BETA GLOBULIN 0.54 g/dL (0.48-1.10); GAMMA 0.35 g/dL (0.62-1.51); IMMUNOFIXATION REFLEX IFE Done
--- NOTE | 2025-03-27 11:45 | NUR ---
OXYGEN CONFIRMED WITH R/T THAT THE VENTI MASK CAN BE HUMIDIFIED. PLACED A HUMIDIER IN THE OXYGEN TREE. EDUCATED PT/FAMILY ABOUT FUNCTION. REQUESTED PT USE THE FLUTTER VALVE AGAIN. HE DID. HIS INSPIRATION IS LIMITED AND HE DOESN'T BLOW FORCEABLY. CARE ONGOING.
[2025-03-27] MEDS ORDERED: Ipratropium/Albuterol SulF 2.5-0.5MG/3 ML Amp INH SCH (14:35)
[2025-03-27 16:19] VITALS: BP 129/75
--- NOTE | 2025-03-27 18:20 | NUR ---
NOTE PT ALERT. RESISTENT TO INFORMATION AND REQUESTS FOR PERSON INVOLVMENT. DR TAO MET WITH PT AT BEDSIDE. PT DIDN'T TOLERATE CPT WELL. INCREASE IN PAIN AND INCREASE OXYGEN DEMAND. OXYGEN INCREASED VIA VENTI MASK TO 10L. TELE NSR. RATE 80-90. MEDCIATED FOR LEFT CHEST/RIB PAIN WITH DILAUDID 1MG. PT EXPRESSED THAT IT DOES HELP. HE EXPRESSED HE IS WORE OUT. HE JUST WANTS A NAP. HE REFUSED DINNER. HE REFUSED TO SIT UP. CARE ONGOING.
[2025-03-27 20:06] VITALS: BP 140/74
[2025-03-27 23:14] VITALS: BP 134/69
[2025-03-28] VITALS (7 sets, daily range): BP systolic 109–121; BP diastolic 52–68
--- NOTE | 2025-03-28 03:11 | NUR ---
SHIFT SUMMARY INCREASED CONFUSION NOTED DURING THE NIGHT HRS. PT BANGING URINAL ON THE BEDSIDE TABLE. PT LAYING ON HIS BACK, SIDEWAYS IN THE BED. REPOSITIONED AND REORIENTED. PT STATED "I DON'T KNOW WHAT I NEED". O2 MANAGED PER RT, LOWERED TO 8L VIA OXIMASK. CONTINUOUS PULSE OX MID 90'S. SWITCHED TO V-MASK DURING NEB TREATMENTS. PT RESTLESS INTERMITTENTLY. DENIES PAIN. HS BG 157. TELE: SINUS TACH @101 W. PAC'S. PT DENIES CP/PRESSURE. BED AT THE LOWEST POSITION, CALL LIGHT W/I REACH.
[2025-03-28 04:54] LABS: BASOPHILS ABSOLUTE AUTO 0.03 K/mm3 (0.00-0.23); BASOPHILS PERCENT AUTO 0 % (0-2); EOSINOPHILS ABSOLUTE AUTO 0.03 K/mm3 (0.00-0.68); EOSINOPHILS PERCENT AUTO 0 % (0-6); Hematocrit 24.5 % (37.0-53.0); Hemoglobin 7.7 g/dL (13.5-17.5); IMMATURE GRAN ABSOLUTE AUTO 0.29 K/mm3 (0.00-0.10); IMMATURE GRAN PERCENT AUTO 3 % (0-1); LYMPHOCYTES ABSOLUTE AUTO 0.57 K/mm3 (0.84-5.20); LYMPHOCYTES PERCENT AUTO 5 % (21-46); MONOCYTES ABSOLUTE AUTO 0.95 K/mm3 (0.16-1.47); MONOCYTES PERCENT AUTO 8 % (4-13); Mean Corpuscular HGB Conc 31.4 g/dL (31.5-36.5); Mean Corpuscular Volume 92 fL (80-100); NEUTROPHILS ABSOLUTE AUTO 9.45 K/mm3 (1.96-9.15); NEUTROPHILS PERCENT AUTO 83 % (41-73); NRBC ABSOLUTE 0.00 K/mm3 (0.00-0.02); NRBC Auto 0.0 /100 WBC (0.0-0.2); Platelet Count 290 K/mm3 (150-400); RDW Coefficient Variation 15.5 % (11.7-14.2); RDW Standard Deviation 51.7 fL (35.1-46.3)
[2025-03-28 05:31] LABS: Albumin, Blood 1.4 g/dL (3.4-5.0); Anion Gap 11 mmol/L (3-11); Blood Urea Nitrogen 40 mg/dL (8-24); CO2, Blood 20 mmol/L (21-32); Calcium, Blood 7.5 mg/dL (8.5-10.1); Chloride, Blood 114 mmol/L (98-108); Creatinine, Blood 5.03 mg/dL (0.60-1.20); Glucose, Blood 170 mg/dL (70-99); Phosphorus, Blood 5.3 mg/dL (2.5-4.9); Potassium, Blood 4.1 mmol/L (3.5-5.5); Sodium, Blood 141 mmol/L (136-145)
--- NOTE | 2025-03-28 07:14 | NUR ---
CPT PREMED WITH DIALUDID FOR CPT. CARE ONGOING.
[2025-03-28 10:24] LABS: Automated BF RBC Count 0.005 M/mm3 (0-0); Automated BF WBC Count 1.875 K/mm3 (0-999)
[2025-03-28 10:25] LABS: RBC Count, Body Fluid 5000 /mm3 (0-0)
--- NOTE | 2025-03-28 10:44 | NUR ---
THORACENTESIS DR TAO PERFORMED A LEFT SIDED THORACENTESIS AT BEDSIDE. FLUID AND VIALS HAND DELIVERED TO LAB. POST CXR COMPLETED. PT RESTING QUIETLY AT THIS TIME. LEMONAIDE PROVIDED PT REQUESTED. CARE ONGOING.
[2025-03-28 10:50] LABS: Glucose, Body Fluid 140 mg/dL; Lactate Dehydrogenase, Body Fl 131 U/L
[2025-03-28 11:04] LABS: Lymphocytes, Fluid 10.0 % (0.0-18.0); Monocytes/Mononuclear, Fluid 10.0 % (0.0-50.0); Neutrophils, Fluid 80.0 % (0.0-25.0); Total Cell Count, Body Fluid 100
[2025-03-28 11:05] LABS: Color, Body Fluid L Yellow (None-Yellow)
--- NOTE | 2025-03-28 12:05 | NUR ---
BOZENAIN CONFIRMED WITH DR KAHN THAT HEPARIN SUBQ IS OK WITH HIM. CARE ONGOING.
--- NOTE | 2025-03-28 15:53 | NUR ---
BREATHING PT MEDICATED WITH DILAUDID PRIOR TO CPT. PT STATED THAT THE MANUAL CPT FEELS OK BUT THE VEST IS TOO MUCH AND HURTS HIM. HE FEELS HIS BREATHING IS BETTER AND LIGHT. BILATERAL CHEST RISE IS EQUAL. LEFT LUNG FIELD DIM POSTERIOR/AMTERIOR. LEFT POSTERIOR THORA SITE SOFT, NON TENDER. NO CREPITUS NOTED. PRODUCTIVE COUGH OF THICK YELLOW/BYRNE SPUTUM. PT USES YANKER TO REMOVE SPUTUM. HIGH FLOW CANNULA IN USE SO PT WILL DRINK. 7L SAT 93%. VOICE CLEAR AND STRONG. CARE ONGOING.
[2025-03-28] MEDS ORDERED: Heparin Sodium,Porcine 5,000 UNIT/0.5 ML SDV SC SCH (16:00)
--- NOTE | 2025-03-28 18:11 | NUR ---
NOTE PT ALERT. AWAKE. VOICE STRONMGER. SHORT RUN OF SVT THIS AFTERNOON. PT ASYMPTOMATIC. VSS. LEFT POSTERIOR THORACENTESIS SITE CD&I. NO CREPITUS. NON TENDER TO PALPATION. MEDICATED PRIOR TO CPT. NO BM. PT REFUSED MORNING BOWEL CARE, EYE GTTS AND NASEL SPRAY. POOR INTAKE. TALKED WITH DR RODRIGUEZ AND RELATED DAYS INFORMATION. CARE ONGOING.
--- NOTE | 2025-03-29 03:37 | NUR ---
SHIFT SUMMARY NO ACUTE EVENTS DURING THIS SHIFT. PT REPORTS SLEEPING GOOD TWO HRS AFTER RECEIVING PRN IV DILAUDID FOR C/O LEFT FLANK PAIN. PT REPORTS IS THE SAME AREA WHERE THORACENTESIS WAS DONE YESTERDAY 03/28. FLANK C/D, NO REDNESS NOTED. TELE: SR @95 WITH PAC'S. PT DENIES CP/PRESSURE. PT APPEARS IN GOOD SPIRITS AND STATES" I'M READY TO GO HOME". CONTINUING PT EDUCATION. GOOD APPETITE DURING DINNER TIME. BED AT THE LOWEST POSITION, CALL LIGHT W/I REACH. PT IS A/O X3-4, ABLE TO MAKE HIS NEEDS KNOWN AND COOPERATIVE WITH CARE.
[2025-03-29 04:14] VITALS: BP 117/53
[2025-03-29 06:07] LABS: BASOPHILS ABSOLUTE AUTO 0.02 K/mm3 (0.00-0.23); BASOPHILS PERCENT AUTO 0 % (0-2); EOSINOPHILS ABSOLUTE AUTO 0.09 K/mm3 (0.00-0.68); EOSINOPHILS PERCENT AUTO 1 % (0-6); Hematocrit 26.1 % (37.0-53.0); Hemoglobin 8.1 g/dL (13.5-17.5); IMMATURE GRAN ABSOLUTE AUTO 0.20 K/mm3 (0.00-0.10); IMMATURE GRAN PERCENT AUTO 2 % (0-1); LYMPHOCYTES ABSOLUTE AUTO 0.60 K/mm3 (0.84-5.20); LYMPHOCYTES PERCENT AUTO 7 % (21-46); MONOCYTES ABSOLUTE AUTO 0.75 K/mm3 (0.16-1.47); MONOCYTES PERCENT AUTO 9 % (4-13); Mean Corpuscular HGB Conc 31.0 g/dL (31.5-36.5); Mean Corpuscular Volume 93 fL (80-100); NEUTROPHILS ABSOLUTE AUTO 6.78 K/mm3 (1.96-9.15); NEUTROPHILS PERCENT AUTO 80 % (41-73); NRBC ABSOLUTE 0.00 K/mm3 (0.00-0.02); NRBC Auto 0.0 /100 WBC (0.0-0.2); Platelet Count 305 K/mm3 (150-400); RDW Coefficient Variation 15.1 % (11.7-14.2); RDW Standard Deviation 50.5 fL (35.1-46.3)
[2025-03-29 06:29] LABS: Albumin, Blood 1.4 g/dL (3.4-5.0); Anion Gap 8 mmol/L (3-11); Blood Urea Nitrogen 42 mg/dL (8-24); CO2, Blood 23 mmol/L (21-32); Calcium, Blood 7.6 mg/dL (8.5-10.1); Chloride, Blood 113 mmol/L (98-108); Creatinine, Blood 5.61 mg/dL (0.60-1.20); Glucose, Blood 117 mg/dL (70-99); Lactate Dehydrogenase (Ld),Bld 181 U/L (100-240); Phosphorus, Blood 5.7 mg/dL (2.5-4.9); Potassium, Blood 4.3 mmol/L (3.5-5.5); Sodium, Blood 140 mmol/L (136-145); Total Protein, Blood 5.7 g/dL (6.4-8.2)
[2025-03-29 07:32] VITALS: BP 115/65
[2025-03-29 11:00] VITALS: BP 117/56
[2025-03-29 15:35] VITALS: BP 117/63
--- NOTE | 2025-03-29 17:51 | NUR ---
SHIFT SUMMARY PATIENT A/OX4, ABLE TO MAKE NEEDS KNOWN. VERBALLY AGRRESSIVE TOWARDS STAFF THIS MORNING, EASILY AGITATED AND IRRITABLE. WHEN ENTERING ROOM DURING BEDSIDE SHIFT REPORT THIS RN GAVE INTRODUCTIONS AND PATIENT RESPONDED "I DON'T GIVE A SHIT WHO YOU ARE, I HAVE TO PEE, HOLD MY URINAL." PATIENT'S OXYGEN NOW AT 8 LPM HF NASAL CANNULA, INCREASED FROM THIS MORNING AT 7LPM. HUMIDIFIER PLACED TO OXYGEN. IV FLUIDS STARTED PER SEP. CALLED DR. ONEILL THIS EVENING TO DISCONTINUE ACHS CBGs PATIENT WITH NO INSULIN ORDER, ORDER NOW CHANGED TO PRN. TELEMETRY IN PLACE RUNNING SINUS IN 80s WITH PVCs AND PACs, NO EVENTS NOTED THIS SHIFT, POWERGLIDE DRESSING CHANGED. PATIENT REFUSING THERAPY SERVICES AND REPOSITIONING Q2 H. PATIENT WITH MULTIPLE VISITORS THROGHOUT THE SHIFT. PRN OXYCODONE ADMINISTERED PER SEP. NO OTHER CONCERNS AT THIS TIME, WILL CONTINUE TO MONITOR.
[2025-03-29 19:21] VITALS: BP 126/66
[2025-03-29 23:37] VITALS: BP 124/68
[2025-03-30 03:51] VITALS: BP 112/62
[2025-03-30 05:01] LABS: BASOPHILS ABSOLUTE AUTO 0.03 K/mm3 (0.00-0.23); BASOPHILS PERCENT AUTO 1 % (0-2); EOSINOPHILS ABSOLUTE AUTO 0.07 K/mm3 (0.00-0.68); EOSINOPHILS PERCENT AUTO 1 % (0-6); Hematocrit 23.4 % (37.0-53.0); Hemoglobin 7.4 g/dL (13.5-17.5); IMMATURE GRAN ABSOLUTE AUTO 0.10 K/mm3 (0.00-0.10); IMMATURE GRAN PERCENT AUTO 2 % (0-1); LYMPHOCYTES ABSOLUTE AUTO 0.58 K/mm3 (0.84-5.20); LYMPHOCYTES PERCENT AUTO 9 % (21-46); MONOCYTES ABSOLUTE AUTO 0.74 K/mm3 (0.16-1.47); MONOCYTES PERCENT AUTO 12 % (4-13); Mean Corpuscular HGB Conc 31.6 g/dL (31.5-36.5); Mean Corpuscular Volume 92 fL (80-100); NEUTROPHILS ABSOLUTE AUTO 4.70 K/mm3 (1.96-9.15); NEUTROPHILS PERCENT AUTO 76 % (41-73); NRBC ABSOLUTE 0.00 K/mm3 (0.00-0.02); NRBC Auto 0.0 /100 WBC (0.0-0.2); Platelet Count 317 K/mm3 (150-400); RDW Coefficient Variation 15.0 % (11.7-14.2); RDW Standard Deviation 50.4 fL (35.1-46.3)
--- NOTE | 2025-03-30 05:01 | NUR ---
SHIFT SUMMARY: PT RESTING OFF AND ON THROUGH OUT THE NIGHT. PT IS VERBALLY AGGRESSIVE WITH STAFF. PT VOIDING IN URNIAL WITH AST. MEDICATED PER EMAR. NO ACUTE CHANGES THIS SHIFT.
[2025-03-30 05:23] LABS: Anion Gap 11.0 mmol/L (3-11); Blood Urea Nitrogen 41.0 mg/dL (8-24); CO2, Blood 20.0 mmol/L (21-32); Calcium, Blood 7.4 mg/dL (8.5-10.1); Chloride, Blood 112.0 mmol/L (98-108); Creatinine, Blood 5.5 mg/dL (0.60-1.20); Glucose, Blood 78.0 mg/dL (70-99); Potassium, Blood 4.6 mmol/L (3.5-5.5); Sodium, Blood 138.0 mmol/L (136-145)
[2025-03-30 07:54] VITALS: BP 121/57
[2025-03-30] MEDS ORDERED: Polyethylene Glycol 3350 17 gm PO PRN (10:50)
[2025-03-30 11:35] VITALS: BP 109/60
[2025-03-30] MEDS ORDERED: NS 1,000 ML IV SCH (14:05)
[2025-03-30 15:07] VITALS: BP 129/68
--- NOTE | 2025-03-30 17:48 | NUR ---
SHIFT SUMMARY: A&OX4 THROUGHOUT SHIFT. PLEASANT WITH CARE. MEDICATED PER EMAR. PT DECLINED OT TODAY. PT EDUCATED ON IMPORTANCE. FLUIDS CONTINUING TO RUN, IV PATENT. LYING IN BED, RESPIRATIONS EQAL AND NONLABORED. BED LOCKED AND IN THE LOWEST POSITION.
[2025-03-30 19:29] VITALS: BP 127/63
[2025-03-30 23:35] VITALS: BP 114/56
[2025-03-31 04:25] VITALS: BP 108/59
[2025-03-31 04:37] LABS: Hematocrit 22.7 % (37.0-53.0); Hemoglobin 7.2 g/dL (13.5-17.5)
[2025-03-31 05:01] LABS: Albumin, Blood 1.3 g/dL (3.4-5.0); Anion Gap 9 mmol/L (3-11); Blood Urea Nitrogen 42 mg/dL (8-24); CO2, Blood 21 mmol/L (21-32); Calcium, Blood 7.4 mg/dL (8.5-10.1); Chloride, Blood 115 mmol/L (98-108); Creatinine, Blood 5.28 mg/dL (0.60-1.20); Glucose, Blood 86 mg/dL (70-99); Phosphorus, Blood 5.4 mg/dL (2.5-4.9); Potassium, Blood 4.5 mmol/L (3.5-5.5); Sodium, Blood 140 mmol/L (136-145)
--- NOTE | 2025-03-31 05:18 | NUR ---
SHIFT SUMMARY A&OX4. ABLE TO MAKE NEEDS KNOWN. USES URINAL APPROPRIATELY AND CALLS APPROPRIATELY. HAD SOME PAIN DURING SHIFT. PT REPOSITIONED TOLERATED AND MEDICATED PER EMAR. REPOSITIONING IS FATIGUING AND CAUSES SOB FOR PT. PT CURRENTLY SLEEPING IN BED AT LOWEST POSITION WITH RAILS X2 AND CALL LIGHT WITHIN REACH.
[2025-03-31 07:46] VITALS: BP 128/66
[2025-03-31 12:05] VITALS: BP 125/64
[2025-03-31 15:53] VITALS: BP 119/60
--- NOTE | 2025-03-31 19:17 | NUR ---
ASSUSMED CARE. PT DID WELL TODAY NO CHANGES, PT IS STILL GRUMPY AND HAVING A HARD TIME PARTICIPATING IN CARE. C/O PAIN TO CHEST WALL BUT REFUSED MEDICATIONS FROM ME, PT WANTS TO SLEEP AND NOT BE BOTHERED. WILL CONT TO MONITOR. PT BUZZ 4L NC. AND MAINTAINING >95
[2025-03-31 20:02] VITALS: BP 121/64
[2025-03-31 23:54] VITALS: BP 134/70
[2025-04-01 04:07] VITALS: BP 129/61
--- NOTE | 2025-04-01 04:21 | NUR ---
PT A&O X4, VS WNL, TELE NSR IN 80'S, REMAINS ON O2 4L WITH SATS IN LOW 90'S. PT UP WITH ASSIST TO BSC, AND NEEDS ASSIST WITH URINAL. PT PAIN IN RIGHT LATERAL CHEST HAS IMPROVED THIS AM. PT HAS REFUSED CPT, AND STILL DOING NEBS. PT WITH POWER GLIDE IN [facility], DID DRAW LABS THIS AM WITHOUT ISSUE. UNSURE WHAT PLAN IS AT THIS TIME. CAN UTILIZE CALL SYSTEM APPROPRIATELY.
[2025-04-01 04:51] LABS: BASOPHILS ABSOLUTE AUTO 0.02 K/mm3 (0.00-0.23); BASOPHILS PERCENT AUTO 0 % (0-2); EOSINOPHILS ABSOLUTE AUTO 0.07 K/mm3 (0.00-0.68); EOSINOPHILS PERCENT AUTO 1 % (0-6); Hematocrit 24.0 % (37.0-53.0); Hemoglobin 7.5 g/dL (13.5-17.5); IMMATURE GRAN ABSOLUTE AUTO 0.09 K/mm3 (0.00-0.10); IMMATURE GRAN PERCENT AUTO 1 % (0-1); LYMPHOCYTES ABSOLUTE AUTO 0.59 K/mm3 (0.84-5.20); LYMPHOCYTES PERCENT AUTO 7 % (21-46); MONOCYTES ABSOLUTE AUTO 0.80 K/mm3 (0.16-1.47); MONOCYTES PERCENT AUTO 10 % (4-13); Mean Corpuscular HGB Conc 31.3 g/dL (31.5-36.5); Mean Corpuscular Volume 91 fL (80-100); NEUTROPHILS ABSOLUTE AUTO 6.65 K/mm3 (1.96-9.15); NEUTROPHILS PERCENT AUTO 81 % (41-73); NRBC ABSOLUTE 0.00 K/mm3 (0.00-0.02); NRBC Auto 0.0 /100 WBC (0.0-0.2); Platelet Count 358 K/mm3 (150-400); RDW Coefficient Variation 15.1 % (11.7-14.2); RDW Standard Deviation 50.4 fL (35.1-46.3)
[2025-04-01 05:10] LABS: Albumin, Blood 1.4 g/dL (3.4-5.0); Anion Gap 11 mmol/L (3-11); Blood Urea Nitrogen 40 mg/dL (8-24); CO2, Blood 20 mmol/L (21-32); Calcium, Blood 7.8 mg/dL (8.5-10.1); Chloride, Blood 115 mmol/L (98-108); Creatinine, Blood 5.36 mg/dL (0.60-1.20); Glucose, Blood 97 mg/dL (70-99); Phosphorus, Blood 5.5 mg/dL (2.5-4.9); Potassium, Blood 4.6 mmol/L (3.5-5.5); Sodium, Blood 141 mmol/L (136-145)
[2025-04-01 07:29] VITALS: BP 130/64
--- NOTE | 2025-04-01 09:21 | NUR ---
ASSUMED CARE A/O X 4 FLAT AFFECT PT CRAnky AND DOES NOT WANT TO BE BOTHERED, PT HAS BEEN REFUSING BREATHING TREATMENTS FROM RT. PT BUZZ WELL 02 ON 4L 94%. CALL LIGHT WITHIN REACH MAKES NEEDS KNOWN.
[2025-04-01 11:51] VITALS: BP 115/65
[2025-04-01 15:13] VITALS: BP 135/70
--- NOTE | 2025-04-01 19:21 | NUR ---
repeated efforts made to pt to work with staff/therapy, pt shows and has expressed no interest to work for his recovery. remains on 3l nc and sleeping will cont to monitor
[2025-04-01 19:49] VITALS: BP 130/61
[2025-04-02] VITALS (7 sets, daily range): BP systolic 112–149; BP diastolic 64–77
--- NOTE | 2025-04-02 05:23 | NUR ---
SHIFT SUMMARY: PT AOX4, TIRED AND FORGETFUL AT TIMES, BUT REORIENTS EASILY. CALLS APPROPRIATELY AND ABLE TO MAKE NEEDS KNOWN. SLEPT THROUGH MOST OF THE NIGHT. HAD A SMALL BM. URINATED WITH ASSISTANCE IN THE URINAL. 1PA TO THE BSC. COOPERATIVE IN CARE, THOUGH GROUCHY AT TIMES. COMPLAINED OF SHARP PLEURETIC PAIN, MEDICATED PER EMR. TOLERATING MEDICATIONS WELL. NO ACUTE OVERNIGHT EVENTS. PT IN BED SLEEPING, BED IN LOWEST POSITION, CALL LIGHT IN REACH. CONTINUING CARE.
[2025-04-02 06:52] LABS: BASOPHILS ABSOLUTE AUTO 0.02 K/mm3 (0.00-0.23); BASOPHILS PERCENT AUTO 0 % (0-2); EOSINOPHILS ABSOLUTE AUTO 0.10 K/mm3 (0.00-0.68); EOSINOPHILS PERCENT AUTO 1 % (0-6); Hematocrit 24.5 % (37.0-53.0); Hemoglobin 7.7 g/dL (13.5-17.5); IMMATURE GRAN ABSOLUTE AUTO 0.09 K/mm3 (0.00-0.10); IMMATURE GRAN PERCENT AUTO 1 % (0-1); LYMPHOCYTES ABSOLUTE AUTO 0.67 K/mm3 (0.84-5.20); LYMPHOCYTES PERCENT AUTO 9 % (21-46); MONOCYTES ABSOLUTE AUTO 0.91 K/mm3 (0.16-1.47); MONOCYTES PERCENT AUTO 12 % (4-13); Mean Corpuscular HGB Conc 31.4 g/dL (31.5-36.5); Mean Corpuscular Volume 90 fL (80-100); NEUTROPHILS ABSOLUTE AUTO 5.84 K/mm3 (1.96-9.15); NEUTROPHILS PERCENT AUTO 77 % (41-73); NRBC ABSOLUTE 0.00 K/mm3 (0.00-0.02); NRBC Auto 0.0 /100 WBC (0.0-0.2); Platelet Count 341 K/mm3 (150-400); RDW Coefficient Variation 14.9 % (11.7-14.2); RDW Standard Deviation 48.9 fL (35.1-46.3)
[2025-04-02 07:32] LABS: Albumin, Blood 1.4 g/dL (3.4-5.0); Anion Gap 8 mmol/L (3-11); Blood Urea Nitrogen 37 mg/dL (8-24); CO2, Blood 22 mmol/L (21-32); Calcium, Blood 8.1 mg/dL (8.5-10.1); Chloride, Blood 115 mmol/L (98-108); Creatinine, Blood 5.51 mg/dL (0.60-1.20); Glucose, Blood 90 mg/dL (70-99); Phosphorus, Blood 4.9 mg/dL (2.5-4.9); Potassium, Blood 4.7 mmol/L (3.5-5.5); Sodium, Blood 140 mmol/L (136-145)
--- NOTE | 2025-04-02 11:14 | NUR ---
assumed care. pt doing well today more awake and alert and talkative. pain to left chest sharp and persistent, pt medicated per mar. pt stated he is more motivated to get oob today and will try this afternoon. eliot placed in room.
[2025-04-03 03:50] VITALS: BP 135/69
--- NOTE | 2025-04-03 04:42 | NUR ---
SHIFT SUMMARY: PT AOX4 CALLS APPROPRIATELY, ABLE TO MAKE NEEDS KNOWN. IRRITABLE AT TIMES BUT COOPERATIVE IN CARE. PT COMPLAINS OF PAIN IN THE LEFT CHEST/ FLANK, APPEARS TO BE PLEURITIC PAIN, LUNG STILL MOVING AIR ON AUSCULTATION. PT GOT UP AND GOT ONTO BSC AND HAD A BM, LITTLE URINE OUTPUT, BUT DENIES ANY BLADDER DISCOMFORT. DOES NOT FEEL DISTENDED ON PALPATION. NO ACUTE OVERNIGHT EVENTS. PT IN BED RESTING, BED IN LOWEST POSITION, CALL LIGHT IN REACH. CONTINUING CARE.
[2025-04-03 05:18] LABS: Albumin, Blood 1.4 g/dL (3.4-5.0); Anion Gap 10 mmol/L (3-11); Blood Urea Nitrogen 35 mg/dL (8-24); CO2, Blood 21 mmol/L (21-32); Calcium, Blood 7.9 mg/dL (8.5-10.1); Chloride, Blood 114 mmol/L (98-108); Creatinine, Blood 5.43 mg/dL (0.60-1.20); Glucose, Blood 120 mg/dL (70-99); Phosphorus, Blood 4.2 mg/dL (2.5-4.9); Potassium, Blood 4.9 mmol/L (3.5-5.5); Sodium, Blood 140 mmol/L (136-145)
[2025-04-03 07:21] VITALS: BP 121/62
[2025-04-03] MEDS ORDERED: Ipratropium/Albuterol SulF 2.5-0.5MG/3 ML Amp INH SCH ×2 (08:10→17:25)
--- NOTE | 2025-04-03 09:26 | NUR ---
Pt laying in bed awake a/ox4, irritable, states he is hurting so bad he can't move his arms, rates pain at 9/10, medicated per emar, lungs are clear in upper pan, dim in bases, resp even and unlabored, on 3 liters 02 via n/c, no cough noted, hrr, tele in place running sr in the 80 -90's, no edema noted, power glide to adeline site is clear and patent, bt x4, abd flat soft nontender, voids via urinal and briefs in place, skin is c/w/d but very dry and scaling, moves left arm enough to feed self, cristina, call light in reach.
[2025-04-03 11:30] VITALS: BP 112/66
[2025-04-03] MEDS ORDERED: Lidocaine 4% 1 Patch TOP SCH ×2 (12:35→13:00)
--- NOTE | 2025-04-03 18:26 | NUR ---
Pt right shoulder has been very painful today, have medicated per mar, he sat up in the chair for a few hrs, no acute changes this shift, call light in reach.
[2025-04-03 19:43] VITALS: BP 132/70
[2025-04-03 23:38] VITALS: BP 136/87
[2025-04-04 03:45] VITALS: BP 123/70
--- NOTE | 2025-04-04 04:46 | NUR ---
SHIFT SUMMARY: PT AOX4, NINILCHIK, SOME LIGHT SENSITIVITY. FORGETFUL AT TIMES BUT EASILY REORIENTED. IRRITABLE BUT COOPERATIVE IN CARE. SEVERAL SMALL VOIDS THROUGH OUT THE NIGHT. CALLS APPROPRIATELY AND ABLE TO MAKE NEEDS KNOWN. COMPLAINTS OF PAIN, MEDICATED PER EMR. TOLERATING MEDICATION WELL. STILL LETHARGIC, BUT ARROUSABLE. PT IN BED RESTING, BED IN LOWEST POSITION, CALL LIGHT IN REACH.
[2025-04-04 04:47] LABS: Hematocrit 24.0 % (37.0-53.0); Hemoglobin 7.3 g/dL (13.5-17.5)
[2025-04-04 05:21] LABS: Albumin, Blood 1.4 g/dL (3.4-5.0); Anion Gap 12 mmol/L (3-11); Blood Urea Nitrogen 37 mg/dL (8-24); CO2, Blood 21 mmol/L (21-32); Calcium, Blood 7.9 mg/dL (8.5-10.1); Chloride, Blood 112 mmol/L (98-108); Creatinine, Blood 5.61 mg/dL (0.60-1.20); Glucose, Blood 108 mg/dL (70-99); Phosphorus, Blood 4.9 mg/dL (2.5-4.9); Potassium, Blood 4.7 mmol/L (3.5-5.5); Sodium, Blood 140 mmol/L (136-145)
[2025-04-04 07:47] VITALS: BP 118/64
[2025-04-04 12:13] VITALS: BP 121/63
[2025-04-04 17:52] VITALS: BP 139/70
[2025-04-04 19:58] VITALS: BP 137/76
--- NOTE | 2025-04-04 20:05 | NUR ---
End of shift report: Patient is alert and oriented x3 with noted forgetfulness at times. Patient very particular in what he likes to do and have done related to care and can become upset easily. Patient is able to calm and redirect quickly and will apologize for being "rude". Patient with right shoulder pain today and medicated with Roxicodone per EMAR with good relief. Patient denied CP, SOB, N/V/D today. All medications administered per EMAR. OT worked with patient this morning; PT attempted to work with him and he denied. Patient utilizing call light appropriately; call light within reach, bed in lowest position. Report given to oncoming operation shift supervisor nurse.
[2025-04-04 23:49] VITALS: BP 129/76
[2025-04-05 03:13] VITALS: BP 139/71
--- NOTE | 2025-04-05 04:26 | NUR ---
SHIFT SUMMARY ADMITTED FOR LA NENA/CKD. ALSO HAS LLL PNEUMONIA. FULL CODE. IV ANTIB RX ARE SCHEDULED. AWAITING REHAB PLACEMENT. TELEMETRY: NSR @ 71 BPM. POWERGLIDE IN LUE. STRICT I&O'S. MEDICATED FOR CHRONIC RIGHT SHOULDER PAIN. HE IS ON 3 LPM O2. A&O X3. PALLIATIVE CARE IS CONSULTED. ADA DIET. CONTINENT/INCONTINENT.
[2025-04-05 05:14] LABS: Hematocrit 23.5 % (37.0-53.0); Hemoglobin 7.2 g/dL (13.5-17.5)
[2025-04-05 06:14] LABS: Albumin, Blood 1.4 g/dL (3.4-5.0); Anion Gap 12 mmol/L (3-11); Blood Urea Nitrogen 40 mg/dL (8-24); CO2, Blood 21 mmol/L (21-32); Calcium, Blood 8.0 mg/dL (8.5-10.1); Chloride, Blood 113 mmol/L (98-108); Creatinine, Blood 5.67 mg/dL (0.60-1.20); Glucose, Blood 82 mg/dL (70-99); Phosphorus, Blood 5.4 mg/dL (2.5-4.9); Potassium, Blood 4.7 mmol/L (3.5-5.5); Sodium, Blood 141 mmol/L (136-145)
[2025-04-05 08:53] VITALS: BP 130/61
[2025-04-05 16:18] VITALS: BP 116/64
--- NOTE | 2025-04-05 17:20 | NUR ---
PT AOX4 AND COOPERATIVE OF CARE. PT HAS HAD NO ACUTE CHANGES.PT ENCOURAGED AFTER TREATED FOR PAIN IN THE AM TO WORK WITH PHYSICAL THERAPY. PHYSICAL THERAPY GOT PT UP TO CHAIR THIS ONLY LASTED MAYBE 5 MIN AND PT WAS REQUESTING BACK IN BED. PT THEN STATED HE HAD NAUSEA AND ALL DAY SAID WORKING WITH PHYSICAL THERAPY MADE HIM FEEL BAD. PT CURRENTLY IS USING BSC AND DID A ONE PEROSN TRANFEER VERY WELL TO COMMODE. CALL LIGHT IS IN REACH WILL CONTINUE TO MONITOR.
[2025-04-05 19:38] VITALS: BP 92/50
[2025-04-06 04:08] VITALS: BP 107/49
--- NOTE | 2025-04-06 04:17 | NUR ---
SHIFT SUMMARY PATIENT HAD NO ACUTE CHANGES. ALERT ORIENTED AND ONE ASSIST FWW/GB TO BSC. USES URINAL WITH ASSIST. 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 DENIES CHEST PAIN, SOB, AND N/V. VSS/AFEBRILE. ON 2L O2 NC AND RA BASELINE. RT IN FOR BREATHING TX X ONE. POWERGLIDE CLARE ARM INTACT. REPORTED PAIN IN RIGHT SHOULDER/NECK AND OXYCODONE 5 MG GIVEN PER EMAR. CALL LIGHT IN REACH. BED IN LOWEST POSITION. WILL CONTINUE TO MONITOR UNTIL DAY SHIFT NURSE ASSUMES CARE.
[2025-04-06 07:06] LABS: Albumin, Blood 1.4 g/dL (3.4-5.0); Anion Gap 9 mmol/L (3-11); Blood Urea Nitrogen 40 mg/dL (8-24); CO2, Blood 23 mmol/L (21-32); Calcium, Blood 8.1 mg/dL (8.5-10.1); Chloride, Blood 113 mmol/L (98-108); Creatinine, Blood 5.51 mg/dL (0.60-1.20); Glucose, Blood 89 mg/dL (70-99); Phosphorus, Blood 4.9 mg/dL (2.5-4.9); Potassium, Blood 4.8 mmol/L (3.5-5.5); Sodium, Blood 140 mmol/L (136-145)
[2025-04-06 07:15] VITALS: BP 107/57
[2025-04-06] MEDS ORDERED: LIDO700A20 TOP (11:35)
[2025-04-06] MEDS ORDERED: NICO21TP TOP (11:35)
[2025-04-06] MEDS ORDERED: PANT40 PO (11:36)
[2025-04-06] MEDS ORDERED: MIRALAX17 GM PO (11:36)
[2025-04-06] MEDS ORDERED: SENNA LAXATIVE8.6 MG PO (11:37)
[2025-04-06] MEDS ORDERED: VISBIOME 112.51 EACH PO (11:37)
[2025-04-06] MEDS ORDERED: HYDR1TAB94 PO (11:38)
[2025-04-06] MEDS ORDERED: ACET325 PO (14:33)
--- NOTE | 2025-04-06 14:35 | NUR ---
DISCHARGE NOTE PT DISCHARGED TO [facility]. PACKET PROVIDED TO TRANSPORTER. 2L NC PORTABLE OXYGEN TANK PROVIDED TO TRANSPORTER, TO BRING BACK TO HOSPITAL. WHEELCHAIR TRANSPORT. PT DECLINDED NOTIFYING FAMILY. PT HAS PERSONAL CELLPHONE. ALL BELONGINGS GATHERED AND SENT WITH PATIENT. POWERGLIDE TO LEFT UPPER ARM REMOVED. NO QUESTIONS OR CONCERNS PRIOR TO DC.
== END 2025-04-06 14:29 | DRG 871 ==
LOC: ER 03:11 → ERHOLD 05:33 → MEDS 05:33 → PCU 05:33 → MEDS 03-25 11:21 → ENPENDDIS 04-06 11:08 → EDPENDDIS 04-06 11:08 → MEDS 04-06 14:29
PROVIDERS: Hospitalist; Internal Medicine; Internal Medicine Critical Care Medicine; Student in an Organized Health Care Education/Training Program; ADMIT Student in an Organized Health Care Education/Training Program
PROC: 3E03329 Introduction of Other Anti-infective into Peripheral Vein, Percutaneous Approach (ICD-10-PCS; principal; 2025-03-18)
PROC: 5A0935A Assistance with Respiratory Ventilation, Less than 24 Consecutive Hours, High Flow/Velocity Cannula (ICD-10-PCS; 2025-03-19)
PROC: 30233N1 Transfusion of Nonautologous Red Blood Cells into Peripheral Vein, Percutaneous Approach (ICD-10-PCS; 2025-03-21)
PROC: 0DBN8ZX Excision of Sigmoid Colon, Via Natural or Artificial Opening Endoscopic, Diagnostic (ICD-10-PCS; 2025-03-24)
PROC: 0DB98ZX Excision of Duodenum, Via Natural or Artificial Opening Endoscopic, Diagnostic (ICD-10-PCS; 2025-03-24)
PROC: 0DBK8ZX Excision of Ascending Colon, Via Natural or Artificial Opening Endoscopic, Diagnostic (ICD-10-PCS; 2025-03-24)
PROC: 0DBP8ZX Excision of Rectum, Via Natural or Artificial Opening Endoscopic, Diagnostic (ICD-10-PCS; 2025-03-24)
PROC: 0W9B3ZZ Drainage of Left Pleural Cavity, Percutaneous Approach (ICD-10-PCS; 2025-03-28)
DX: A40.3 Sepsis due to Streptococcus pneumoniae (principal); G92.8 Other toxic encephalopathy; J15.69 Pneumonia due to other Gram-negative bacteria; J96.01 Acute respiratory failure with hypoxia; R65.20 Severe sepsis without septic shock; N18.6 End stage renal disease; J15.4 Pneumonia due to other streptococci; K29.81 Duodenitis with bleeding; N17.9 Acute kidney failure, unspecified; E87.0 Hyperosmolality and hypernatremia; I12.0 Hypertensive chronic kidney disease with stage 5 chronic kidney disease or end stage renal disease; J91.8 Pleural effusion in other conditions classified elsewhere; Z16.11 Resistance to penicillins; T17.890A Other foreign object in other parts of respiratory tract causing asphyxiation, initial encounter; E46 Unspecified protein-calorie malnutrition; K21.9 Gastro-esophageal reflux disease without esophagitis; D63.1 Anemia in chronic kidney disease; N18.30 Chronic kidney disease, stage 3 unspecified; E11.22 Type 2 diabetes mellitus with diabetic chronic kidney disease; R13.10 Dysphagia, unspecified; R54 Age-related physical debility; E78.5 Hyperlipidemia, unspecified; H54.3 Unqualified visual loss, both eyes; F17.210 Nicotine dependence, cigarettes, uncomplicated; D12.8 Benign neoplasm of rectum; K64.9 Unspecified hemorrhoids; D12.2 Benign neoplasm of ascending colon; D12.5 Benign neoplasm of sigmoid colon; K42.9 Umbilical hernia without obstruction or gangrene; E66.9 Obesity, unspecified; Z99.81 Dependence on supplemental oxygen; Z88.0 Allergy status to penicillin; Z87.19 Personal history of other diseases of the digestive system; Z88.2 Allergy status to sulfonamides; Z79.899 Other long term (current) drug therapy; Z88.8 Allergy status to other drugs, medicaments and biological substances; Z91.018 Allergy to other foods; Z91.010 Allergy to peanuts; Z79.82 Long term (current) use of aspirin; Z98.52 Vasectomy status; Z86.19 Personal history of other infectious and parasitic diseases; L40.8 Other psoriasis; Z68.30 Body mass index [BMI] 30.0-30.9, adult
CPT/HCPCS: 36415; 36430; 51798; 71045; 71046; 71047; 71250; 73030; 74176; 80048; 80053; 80069; 81001; 82272; 82465; 82570; 82784; 82803; 82945; 82947; 83521; 83540; 83550; 83605; 83615; 83690; 83735; 83880; 83986; 84100; 84145; 84155; 84156; 84157; 84165; 84300; 84484; 85014; 85018; 85025; 85379; 86334; 86480; 86850; 86900; 86901; 86923; 87040; 87070; 87075; 87184; 87205; 87340; 87449; 88108; 88305; 89051; 92526; 92610; 93005; 93010; 93306; 93970; 94640; 94664; 94667; 94668; 94760; 94762; 96374; 96375; 97110; 97116; 97162; 97164; 97165; 97530; 97535; 99285-25; A9270; C1751; J1171; J1644; J1750; J1885; J1956; J2405; J2470; J2704; J7030; J7040; J7050; J7070; J7120; P9016; Q5106

== ENCOUNTER 2025-05-06 11:49 | Emergency (ER) | payer OTHER ==
[~2025-05-06] VITALS: Ht 160 cm; Wt 80.7 kg
[~2025-05-06 11:49] MED LIST changes: +ASPERFLEX1 EACH TOP; +LIDO700A20 TOP; +MIRALAX17 GM PO; +NICO21TP TOP; +SENNA LAXATIVE8.6 MG PO; +TACROLIMUS; +TIMO.25OPS BOTHEYES; +VISBIOME 112.51 EACH PO
[2025-05-06] MEDS ORDERED: Ondansetron HCl 2 MG / ML 2ML Vial IV ONE (12:25)
[2025-05-06] MEDS ORDERED: HYDROmorphone HCl/Pf 1MG SYR IV ONE (12:25)
[2025-05-06 12:56] LABS: BASOPHILS ABSOLUTE AUTO 0.04 K/mm3 (0.00-0.23); BASOPHILS PERCENT AUTO 1 % (0-2); EOSINOPHILS ABSOLUTE AUTO 0.17 K/mm3 (0.00-0.68); EOSINOPHILS PERCENT AUTO 4 % (0-6); Hematocrit 27.3 % (37.0-53.0); Hemoglobin 8.7 g/dL (13.5-17.5); IMMATURE GRAN ABSOLUTE AUTO 0.02 K/mm3 (0.00-0.10); IMMATURE GRAN PERCENT AUTO 0 % (0-1); LYMPHOCYTES ABSOLUTE AUTO 1.32 K/mm3 (0.84-5.20); LYMPHOCYTES PERCENT AUTO 28 % (21-46); MONOCYTES ABSOLUTE AUTO 0.58 K/mm3 (0.16-1.47); MONOCYTES PERCENT AUTO 12 % (4-13); Mean Corpuscular HGB Conc 31.9 g/dL (31.5-36.5); Mean Corpuscular Volume 84 fL (80-100); NEUTROPHILS ABSOLUTE AUTO 2.56 K/mm3 (1.96-9.15); NEUTROPHILS PERCENT AUTO 55 % (41-73); NRBC ABSOLUTE 0.00 K/mm3 (0.00-0.02); NRBC Auto 0.0 /100 WBC (0.0-0.2); Platelet Count 208 K/mm3 (150-400); RDW Coefficient Variation 16.8 % (11.7-14.2); RDW Standard Deviation 51.0 fL (35.1-46.3)
[2025-05-06 13:16] LABS: Alanine Aminotransfer (ALT/SGP 13.0 U/L (12-78); Albumin, Blood 2.8 g/dL (3.4-5.0); Albumin/Globulin Ratio 0.6 (0.8-1.8); Anion Gap 10.0 mmol/L (3-11); Aspartate Aminotrans (AST/SGOT 10.0 U/L (12-37); Bilirubin, Total 0.5 mg/dL (0.1-1.0); Blood Urea Nitrogen 32.0 mg/dL (8-24); CO2, Blood 19.0 mmol/L (21-32); Calcium, Blood 8.0 mg/dL (8.5-10.1); Chloride, Blood 118.0 mmol/L (98-108); Creatinine, Blood 4.14 mg/dL (0.60-1.20); Globulin, Blood 4.5 g/dL (2.2-4.0); Glucose, Blood 90.0 mg/dL (70-99); Potassium, Blood 4.7 mmol/L (3.5-5.5); Sodium, Blood 142.0 mmol/L (136-145); Total Protein, Blood 7.3 g/dL (6.4-8.2)
[2025-05-06 13:52] VITALS: BP 153/72
== END 2025-05-06 15:41 | disposition home or self-care (01) ==
LOC: ER 11:49
PROVIDERS: Physician Assistant
DX: M54.16 Radiculopathy, lumbar region (principal); I10 Essential (primary) hypertension; E11.9 Type 2 diabetes mellitus without complications; F17.210 Nicotine dependence, cigarettes, uncomplicated
CPT/HCPCS: 80053; 85025; 96374; 96375; 99284-25; A9270; J1171; J2405

== ENCOUNTER 2025-05-19 08:38 | Inpatient (IN) | payer OTHER ==
[~2025-05-19] VITALS: Ht 160 cm; Wt 73.2 kg
[2025-05-19] MEDS ORDERED: NS 1,000 ML IV SCH ×2 (09:15→10:00)
[2025-05-19] MEDS ORDERED: FentaNYL Citrate 50 MCG/ML 2 ML Injection IV ONE ×2 (09:20→09:50)
[2025-05-19 09:24] LABS: BASOPHILS ABSOLUTE AUTO 0.02 K/mm3 (0.00-0.23); BASOPHILS PERCENT AUTO 0 % (0-2); EOSINOPHILS ABSOLUTE AUTO 0.00 K/mm3 (0.00-0.68); EOSINOPHILS PERCENT AUTO 0 % (0-6); Hematocrit 25.6 % (37.0-53.0); Hemoglobin 8.1 g/dL (13.5-17.5); IMMATURE GRAN ABSOLUTE AUTO 0.19 K/mm3 (0.00-0.10); IMMATURE GRAN PERCENT AUTO 1 % (0-1); LYMPHOCYTES ABSOLUTE AUTO 0.89 K/mm3 (0.84-5.20); LYMPHOCYTES PERCENT AUTO 6 % (21-46); MONOCYTES ABSOLUTE AUTO 1.30 K/mm3 (0.16-1.47); MONOCYTES PERCENT AUTO 9 % (4-13); Mean Corpuscular HGB Conc 31.6 g/dL (31.5-36.5); Mean Corpuscular Volume 87 fL (80-100); NEUTROPHILS ABSOLUTE AUTO 12.98 K/mm3 (1.96-9.15); NEUTROPHILS PERCENT AUTO 84 % (41-73); NRBC ABSOLUTE 0.00 K/mm3 (0.00-0.02); NRBC Auto 0.0 /100 WBC (0.0-0.2); Platelet Count 179 K/mm3 (150-400); RDW Coefficient Variation 18.6 % (11.7-14.2); RDW Standard Deviation 58.9 fL (35.1-46.3)
[2025-05-19 09:40] LABS: Prothrombin Time Results 11.5 Sec (9.7-11.5)
[2025-05-19] MEDS ORDERED: HYDROmorphone HCl/Pf 1MG SYR IV PRN (09:55)
[2025-05-19 10:01] LABS: Alanine Aminotransfer (ALT/SGP 69.0 U/L (12-78); Albumin, Blood 2.8 g/dL (3.4-5.0); Albumin/Globulin Ratio 0.7 (0.8-1.8); Anion Gap 16.0 mmol/L (3-11); Aspartate Aminotrans (AST/SGOT 102.0 U/L (12-37); Bilirubin, Total 0.5 mg/dL (0.1-1.0); Blood Urea Nitrogen 82.0 mg/dL (8-24); CO2, Blood 17.0 mmol/L (21-32); Calcium, Blood 8.1 mg/dL (8.5-10.1); Chloride, Blood 112.0 mmol/L (98-108); Creatinine, Blood 5.3 mg/dL (0.60-1.20); Globulin, Blood 4.0 g/dL (2.2-4.0); Glucose, Blood 212.0 mg/dL (70-99); Potassium, Blood 5.8 mmol/L (3.5-5.5); Sodium, Blood 139.0 mmol/L (136-145); Total Protein, Blood 6.8 g/dL (6.4-8.2)
[2025-05-19] MEDS ORDERED: FLU VACC TS2025(65UP)/MF59C/PF 45 MCG/0.5 ML SYRINGE IM SCH (10:35)
[2025-05-19 11:30] VITALS: BP 88/38
[2025-05-19 11:46] VITALS: BP 93/44
[2025-05-19 12:05] VITALS: BP 102/54
--- NOTE | 2025-05-19 12:33 | NUR ---
ADMIT TO PCU 9 PT ARRIVED TO PCU 9 AT 1134 VIA ED BED AND TRANSFERED OVER TO PCU BED VIA SLIDE SHEET. HE IS BEING ADMITTED FOR A STEMI. HE IS A/O X4 BUT LETHARGIC AND C/O 9/10 PAIN FROM CHEST TO BACK; PRN DILUDID GIVEN PER DR CRAWFORD INSTRUCTIONS AND HELPFUL. SPO2 > 98% ON RA. AFEBRILE. HR 30'S. SBP 90-100 WITH MAP 60-70; FLUID BOLUS CONT TO INFUSE FROM ED. NO C/O N/V/D. BRUISING NOTED TO RT FOOT, SKIN TEAR NOTED TO LT ELBOW, AND BRUISING NOTED TO RT ELBOW; PICTURES IN CHART. BILATERAL UPPER CHEST/SHOULER PIV IN PLACE; BLOOD RETURN NOTED FROM BOTH. DR CRAWFORD CAME TO BEDSIDE SHORTLY AFTER ARRIVAL TO THE UNIT; PT SISTER AMY AT BEDSIDE AND PARTICIPATED IN THE CONVERSATION REGARDING PLAN OF CARE. THE PATIENT AGREED FOR COMFORT CARE MEASURES; PT SISTER AGREEABLE WELL. THE PT HAS TWO SONS THAT ARE AWARE PT IS IN THE HOSPITAL; ONE LIVES IN [place] AND IS ON HIS WAY; THE OTHER LIVES IN [place] AND MOST LIKELY WILL NOT BE COMING TO THE HOSPITAL. AFTER 1MG DILAUDID GIVEN, PAIN MANAGEMENT IS BETTER CONTROLLED.
[2025-05-19] MEDS ORDERED: Morphine Sulfate 20 MG/1ML 1 ML Oral Syringe SL PRN (14:55)
[2025-05-19] MEDS ORDERED: Ondansetron HCl 2 MG / ML 2ML Vial IV PRN (15:00)
--- NOTE | 2025-05-19 15:00 | NUR ---
THIS RN AND CHINO CHUNG ASSUMED CARE OF THE PT ABOUT 1425, REPORT RECIEVED FROM SHIRLEY CHUNG. DURING BEDSIDE SHIFT REPORT THE PT WAS BEING MEDICATED BY THE COUNSELING AIDE FOR CHEST PAIN PER EMAR, AND THE PT'S SISTER AMY WAS AT BEDSIDE. THE PT WAS PEACEFULLY LAYING IN THE BED. FACE WITHOUT ANY GRIMANCES. PT REPOSITIONED. SEE NOTES FOR UPDATES.
--- NOTE | 2025-05-19 16:34 | NUR ---
PT PLACED ON COMFORT CARE TODAY. HE HAS 2 SONS, ONE OF THEM IS COMING FROM [place] NOW. PT REPORTS CHEST PAIN IMPROVED. WILL CONTINUE TO FOLLOW, UNSURE OF DISCHARGE PLAN.
--- NOTE | 2025-05-19 18:45 | NUR ---
END OF SHIFT SUMMARY: COMFORT CARE THE PT HAS NOT NEEDED MEDICATIONS SINCE BEING MEDICATED ATBEDSIDE SHIFT REPORT. PT HAS BEEN REPOSITIONED MULTIPLE TIMES, GRIMANCING WHEN TURNED. THE PT THEN DENIES ANY PAIN WHEN UNTOUCHED. THIS RN WAS ASSESSING HIS PAIN AND COMFORT LEVEL ONE TIME AND THE PT SAID HE WAS FINE UNTIL THIS RN WOKE HIM UP. HE HAS CONTINUED TO DENY ANY SOB, SECRETIONS ARE AUDIABLE IN LUNGS. ORAL CARE AND SUCTION COMPLETED. PT WAS ABLE TO SPIT UP SOME SPUTUM. HE HAS BEEN SOMULENT BUT ARROUSABLE AND CAN STILL ANSWER SOME QUESITONS. THE PT'S TWO SISTERS, SON RHODA, AND GRANDSON HAVE BEEN BY AND ARE IN THE ROOM. THE PT'S OTHER SON WHO LIVES IN [place] IS CURRENTLY ON HIS WAY DOWN. FAMILY AND THE PT HAVE DENIES SPIRITUAL CARE. A COMFORT CARE CART WAS PROVIDED. SEE NOTES FOR UPDATES.
[2025-05-20] MEDS ORDERED: Atropine Sulfate 1% Opth Soln 2ML BTL SL PRN (00:15)
--- NOTE | 2025-05-20 06:34 | NUR ---
SHIFT SUMMARY: PT IS LETHARGIC, RESPONDS TO PAIN. PT TELLS THIS NURSE THAT HE IS IN PAIN, HIS RIGHT SIDE, AND BACK. MEDICATED PER EMAR TO MAKE HIM COMFORTABLE. REPOSITIONED TOLERATED. MULTIPLE FAMILY MEMBERS AT BEDSIDE. SISTER AMY REMAINS AT HIS BEDSIDE, AND IS THE ONLY FAMILY MEMBER IN ROOM AT TIME OF . TIME OF WAS 0152. FAMILY LEFT BEDSIDE AT 0345.
== END 2025-05-20 10:54 ==
LOC: ER 08:38 → PCU 10:59
PROVIDERS: Student in an Organized Health Care Education/Training Program; ADMIT Student in an Organized Health Care Education/Training Program
DX: I21.19 ST elevation (STEMI) myocardial infarction involving other coronary artery of inferior wall (principal); N18.6 End stage renal disease; I12.0 Hypertensive chronic kidney disease with stage 5 chronic kidney disease or end stage renal disease; Z51.5 Encounter for palliative care; E11.22 Type 2 diabetes mellitus with diabetic chronic kidney disease; E78.5 Hyperlipidemia, unspecified; I44.0 Atrioventricular block, first degree; D63.1 Anemia in chronic kidney disease; Z66 Do not resuscitate; Z99.2 Dependence on renal dialysis; E87.5 Hyperkalemia; E11.40 Type 2 diabetes mellitus with diabetic neuropathy, unspecified; M94.0 Chondrocostal junction syndrome [Tietze]; Z98.52 Vasectomy status; Z79.891 Long term (current) use of opiate analgesic; Z88.1 Allergy status to other antibiotic agents; Z88.0 Allergy status to penicillin; Z88.2 Allergy status to sulfonamides; Z88.8 Allergy status to other drugs, medicaments and biological substances; Z91.010 Allergy to peanuts; Z79.899 Other long term (current) drug therapy; Z87.19 Personal history of other diseases of the digestive system; Z87.81 Personal history of (healed) traumatic fracture; Z98.890 Other specified postprocedural states; Z87.09 Personal history of other diseases of the respiratory system; Z86.69 Personal history of other diseases of the nervous system and sense organs; Z79.82 Long term (current) use of aspirin; Z87.01 Personal history of pneumonia (recurrent); Z87.891 Personal history of nicotine dependence; Z23 Encounter for immunization
CPT/HCPCS: 71045; 80053; 83690; 84484; 85025; 85610; 85730; 86850; 86900; 86901; 93005; 93010; 96361; 96374; 99285-25; A9270; J1171; J3010; J7030